=== PATIENT | female | born 1945 | race Two or more races ===

== ENCOUNTER 2020-08-10 21:40 | Inpatient (IN) | payer MEDICARE, MEDICAID ==
[~2020-08-10] VITALS: Ht 160 cm; Wt 88.0 kg
[2020-08-11] MEDS ORDERED: APIX5TAB PO (00:35)
[2020-08-11] MEDS ORDERED: RISP1TAB48 PO (00:36)
[2020-08-11] MEDS ORDERED: MELA3TAB89 PO (00:36)
[2020-08-11] MEDS ORDERED: METO25 PO (00:36)
[2020-08-11] MEDS ORDERED: TRAZ-252 PO (00:36)
[2020-08-11] MEDS ORDERED: DOCU-350 PO (00:36)
[2020-08-11] MEDS ORDERED: OXCA300T57 PO (00:36)
[2020-08-11] MEDS ORDERED: RISPC25 IM (00:36)
[2020-08-11] MEDS ORDERED: BISA10SU11 PR (00:36)
[2020-08-11] MEDS ORDERED: SENN8.8S18 PO (00:36)
[2020-08-11] MEDS ORDERED: ZOLPIDEM TARTRATE 10 MG TABLET PO PRN (00:45)
[2020-08-11] MEDS ORDERED: LORazepam 2 MG TABLET PO PRN (00:45)
[2020-08-11] MEDS ORDERED: OLANZapine 5 MG RAPDIS TABLET PO PRN (00:45)
[2020-08-11 01:06] LABS: COVID AG,FIA SOURCE NASOPHARYNGEAL
[2020-08-11 01:22] LABS: EOSINOPHILS % (AUTO) 1.2 % (1.0-6.0); HEMATOCRIT 37.8 % (36-46); HEMOGLOBIN 12.5 g/dL (12.0-16.0); LYMPHOCYTES # (AUTO) 1.4 K/uL (1.0-4.8); LYMPHOCYTES % (AUTO) 24.4 % (22.0-44.0); MEAN CORPUSCULAR HEMOGLOBIN 29.4 pg (26.0-34.0); MEAN CORPUSCULAR HGB CONC 33.1 G/dL (31.0-37.0); MEAN CORPUSCULAR VOLUME 89 fL (80-100); MONOCYTES # (AUTO) 0.4 K/uL (0.1-1.0); MONOCYTES % (AUTO) 7.7 % (2.0-9.0); NEUTROPHILS # (AUTO) 3.8 K/uL (1.8-7.7); NEUTROPHILS % (AUTO) 65.7 % (40.0-70.0); PLATELET COUNT (AUTO) 164 K/uL (150-450); RED BLOOD CELL COUNT(AUTO) 4.27 MIL/uL (4.00-5.20); RED CELL DISTRIBUTION WIDTH 13.6 % (11.5-14.5)
[2020-08-11 01:30] LABS: ANION GAP 7 mmol/L (8-16); CALCIUM, TOTAL 8.5 mg/dL (8.8-10.5); CARBON DIOXIDE 29 mmol/L (22-29); CHLORIDE 108 mmol/L (98-107); CREATININE 1.14 mg/dL (0.60-1.30); GLOMERULAR FILTR. RATE CALC 46 mL/min (>60); GLUCOSE,RANDOM 172 mg/dL (70-110); SODIUM SERUM 144 mmol/L (136-145); UREA NITROGEN, BLOOD 12 mg/dL (7-18)
[2020-08-11 01:45] LABS: ALANINE AMINOTRANSFERASE 13 U/L (12-78); ALBUMIN 3.2 g/dL (3.4-5.0); ALKALINE PHOSPHATASE 106 U/L (46-116); ASPARTATE AMINOTRANSFERASE 17 U/L (15-37); BILIRUBIN,TOTAL 0.6 mg/dL (0.1-1.0); TOTAL PROTEIN, SERUM 6.3 g/dL (6.4-8.2)
[2020-08-11 09:25] LABS: AMPHET/METH SCREEN,URINE NEGATIVE (NEGATIVE); BARBITURATE SCREEN, URINE NEGATIVE (NEGATIVE); BENZODIAZEPINES SCREEN,URINE NEGATIVE (NEGATIVE); CANNABINOID SCREEN,URINE NEGATIVE (NEGATIVE); COCAINE SCREEN,URINE NEGATIVE (NEGATIVE); METHADONE SCREEN, URINE NEGATIVE (NEGATIVE); OPIATE SCREEN,URINE NEGATIVE (NEGATIVE); PHENCYCLIDINE SCREEN,URINE NEGATIVE (NEGATIVE)
[2020-08-11 16:45] VITALS: BP 156/95
[2020-08-11] MEDS ORDERED: LOPERAMIDE HCL 2 MG CAPSULE PO PRN ×2 (18:15)
[2020-08-11] MEDS ORDERED: TUBERCULIN, PURIFIED PROTEIN DERIVATIVE 5 TU/0.1 ML SYRINGE ID ONE (18:15)
[2020-08-11] MEDS ORDERED: QUEtiapine FUMARATE 25 MG TABLET PO PRN (18:15)
[2020-08-11] MEDS ORDERED: MAGNESIUM HYDROXIDE SUSPENSION 30 ML UDCUP PO PRN (18:15)
[2020-08-11] MEDS ORDERED: MAG HYDROX/AL HYDROX/SIMETH ES 30 ML SUSPENSION UDCUP PO PRN ×2 (18:15)
[2020-08-11] MEDS ORDERED: PROMETHAZINE HCL 25 MG TABLET PO PRN (18:15)
[2020-08-11] MEDS ORDERED: HydrOXYzine PAMOATE 50 MG CAPSULE PO PRN (18:15)
[2020-08-11] MEDS ORDERED: ACETAMINOPHEN 325 MG TABLET PO PRN (18:15)
[2020-08-11] MEDS ORDERED: GuaiFENesin/D-METHORPHAN [SUGAR-FREE] 200-20MG/10 ML SYRUP UDCUP PO PRN (18:15)
[2020-08-11] MEDS ORDERED: SENN-277 PO (18:25)
[2020-08-11] MEDS ORDERED: BISACODYL 10 MG RECTAL RECTAL SUPPOSITORY PR PRN (19:45)
[2020-08-11] MEDS: QUEtiapine FUMARATE 100 MG TABLET PO SCH (21:00)
[2020-08-11] MEDS: DIVALPROEX SODIUM 500 MG ER TABLET PO SCH (21:00)
[2020-08-12] MEDS ORDERED: PNEUMOCOCCAL VACCINE POLYVALENT 0.5 ML VIAL [PPSV23] IM. ONE (04:45)
[2020-08-12 07:52] LABS: CHOL/HDL RATIO 2.4 (3.9-5.7); FREE T4 (FREE THYROXINE) 0.96 ng/dL (0.76-1.46); THYROID STIMULATING HORMONE 1.7 uIU/mL (0.36-3.74)
[2020-08-12 08:10] LABS: HEMOGLOBIN A1C 5.4 % (3.8-5.6)
[2020-08-12 08:23] VITALS: BP 140/85
[2020-08-12] MEDS: MULTIVITAMINS WITH MINERALS, THERAPEUTIC TABLET PO SCH (09:00)
[2020-08-12] MEDS: DOCUSATE SODIUM 250 MG CAPSULE PO SCH (09:00)
[2020-08-12] MEDS: APIXABAN 5 MG TABLET PO SCH ×2 (09:00→16:35)
[2020-08-12] MEDS: FOLIC ACID 1 MG TABLET PO SCH (09:00)
[2020-08-12] MEDS: METOPROLOL TARTRATE 25 MG TABLET PO SCH ×2 (09:00→16:36)
[2020-08-12] MEDS: AmLODIPine BESYLATE 5 MG TABLET PO SCH (09:00)
[2020-08-12] MEDS: THIAMINE 100 MG TABLET PO SCH ×2 (09:00→16:36)
[2020-08-12] MEDS: DIVALPROEX SODIUM 500 MG ER TABLET PO SCH ×2 (09:00→21:00)
[2020-08-12 17:49] VITALS: BP 134/81
[2020-08-12] MEDS: QUEtiapine FUMARATE 100 MG TABLET PO SCH (21:00)
[2020-08-13 08:08] VITALS: BP 146/83
[2020-08-13] MEDS: APIXABAN 5 MG TABLET PO SCH ×2 (09:00→16:27)
[2020-08-13] MEDS: FOLIC ACID 1 MG TABLET PO SCH (09:00)
[2020-08-13] MEDS: DOCUSATE SODIUM 250 MG CAPSULE PO SCH (09:00)
[2020-08-13] MEDS: AmLODIPine BESYLATE 5 MG TABLET PO SCH (09:00)
[2020-08-13] MEDS: DIVALPROEX SODIUM 500 MG ER TABLET PO SCH ×4 (09:00→20:56)
[2020-08-13] MEDS: THIAMINE 100 MG TABLET PO SCH ×2 (09:00→16:27)
[2020-08-13] MEDS: METOPROLOL TARTRATE 25 MG TABLET PO SCH ×2 (09:00→16:27)
[2020-08-13] MEDS: MULTIVITAMINS WITH MINERALS, THERAPEUTIC TABLET PO SCH (09:00)
[2020-08-13] MEDS ORDERED: QUET100T34 PO (15:13)
[2020-08-13] MEDS ORDERED: DIVA-80 PO (15:13)
[2020-08-13] MEDS ORDERED: MELA5TAB40 PO (15:14)
[2020-08-13 16:03] VITALS: BP 129/81
[2020-08-13] MEDS: QUEtiapine FUMARATE 100 MG TABLET PO SCH ×3 (20:28→20:56)
[2020-08-14 01:23] VITALS: BP 124/72
[2020-08-14] MEDS: ZOLPIDEM TARTRATE 5 MG TABLET PO PRN (01:28)
[2020-08-14] MEDS: FOLIC ACID 1 MG TABLET PO SCH (09:00)
[2020-08-14] MEDS: AmLODIPine BESYLATE 5 MG TABLET PO SCH (09:00)
[2020-08-14] MEDS: DIVALPROEX SODIUM 500 MG ER TABLET PO SCH ×2 (09:00→20:37)
[2020-08-14] MEDS: MULTIVITAMINS WITH MINERALS, THERAPEUTIC TABLET PO SCH (09:00)
[2020-08-14] MEDS: METOPROLOL TARTRATE 25 MG TABLET PO SCH ×2 (09:00→17:00)
[2020-08-14] MEDS: THIAMINE 100 MG TABLET PO SCH ×2 (09:00→17:00)
[2020-08-14] MEDS: DOCUSATE SODIUM 250 MG CAPSULE PO SCH (09:00)
[2020-08-14] MEDS: APIXABAN 5 MG TABLET PO SCH ×2 (09:00→17:00)
[2020-08-14 09:15] VITALS: BP 125/63
[2020-08-14] MEDS: QUEtiapine FUMARATE 100 MG TABLET PO SCH (20:37)
[2020-08-14 21:00] VITALS: BP 142/93
[2020-08-15 08:36] VITALS: BP 120/61
[2020-08-15] MEDS: DIVALPROEX SODIUM 500 MG ER TABLET PO SCH ×2 (09:00→20:22)
[2020-08-15] MEDS: DOCUSATE SODIUM 250 MG CAPSULE PO SCH (09:00)
[2020-08-15] MEDS: FOLIC ACID 1 MG TABLET PO SCH (09:17)
[2020-08-15] MEDS: AmLODIPine BESYLATE 5 MG TABLET PO SCH (09:19)
[2020-08-15] MEDS: MULTIVITAMINS WITH MINERALS, THERAPEUTIC TABLET PO SCH (09:20)
[2020-08-15] MEDS: THIAMINE 100 MG TABLET PO SCH ×2 (09:20→16:35)
[2020-08-15] MEDS: METOPROLOL TARTRATE 25 MG TABLET PO SCH ×2 (09:20→16:36)
[2020-08-15] MEDS: APIXABAN 5 MG TABLET PO SCH ×2 (09:30→16:35)
[2020-08-15 16:11] VITALS: BP 127/69
[2020-08-15] MEDS: QUEtiapine FUMARATE 100 MG TABLET PO SCH (20:22)
[2020-08-16 08:07] VITALS: BP 135/69
[2020-08-16] MEDS: MULTIVITAMINS WITH MINERALS, THERAPEUTIC TABLET PO SCH (08:53)
[2020-08-16] MEDS: AmLODIPine BESYLATE 5 MG TABLET PO SCH (08:53)
[2020-08-16] MEDS: DIVALPROEX SODIUM 500 MG ER TABLET PO SCH ×2 (08:54→20:22)
[2020-08-16] MEDS: THIAMINE 100 MG TABLET PO SCH ×2 (08:54→16:18)
[2020-08-16] MEDS: METOPROLOL TARTRATE 25 MG TABLET PO SCH ×2 (08:55→16:18)
[2020-08-16] MEDS: APIXABAN 5 MG TABLET PO SCH ×2 (08:55→16:18)
[2020-08-16] MEDS: FOLIC ACID 1 MG TABLET PO SCH (08:55)
[2020-08-16] MEDS: DOCUSATE SODIUM 250 MG CAPSULE PO SCH (09:00)
[2020-08-16 16:50] VITALS: BP 103/61
[2020-08-16] MEDS: QUEtiapine FUMARATE 100 MG TABLET PO SCH (20:22)
[2020-08-17 08:37] VITALS: BP 128/78
[2020-08-17] MEDS: THIAMINE 100 MG TABLET PO SCH ×2 (09:00→16:29)
[2020-08-17] MEDS: AmLODIPine BESYLATE 5 MG TABLET PO SCH (09:00)
[2020-08-17] MEDS: FOLIC ACID 1 MG TABLET PO SCH (09:00)
[2020-08-17] MEDS: APIXABAN 5 MG TABLET PO SCH ×2 (09:00→16:29)
[2020-08-17] MEDS: MULTIVITAMINS WITH MINERALS, THERAPEUTIC TABLET PO SCH (09:00)
[2020-08-17] MEDS: METOPROLOL TARTRATE 25 MG TABLET PO SCH ×2 (09:00→16:29)
[2020-08-17] MEDS: DOCUSATE SODIUM 250 MG CAPSULE PO SCH (09:00)
[2020-08-17] MEDS: DIVALPROEX SODIUM 500 MG ER TABLET PO SCH ×2 (09:00→20:41)
[2020-08-17 16:07] VITALS: BP 113/52
[2020-08-17] MEDS: QUEtiapine FUMARATE 100 MG TABLET PO SCH (20:42)
[2020-08-18 08:00] VITALS: BP 103/61
[2020-08-18] MEDS: THIAMINE 100 MG TABLET PO SCH ×2 (09:00→17:00)
[2020-08-18] MEDS: DOCUSATE SODIUM 250 MG CAPSULE PO SCH (09:00)
[2020-08-18] MEDS: FOLIC ACID 1 MG TABLET PO SCH (09:00)
[2020-08-18] MEDS: DIVALPROEX SODIUM 500 MG ER TABLET PO SCH ×2 (09:00→21:00)
[2020-08-18] MEDS: AmLODIPine BESYLATE 5 MG TABLET PO SCH (09:00)
[2020-08-18] MEDS: MULTIVITAMINS WITH MINERALS, THERAPEUTIC TABLET PO SCH (09:00)
[2020-08-18] MEDS: APIXABAN 5 MG TABLET PO SCH ×2 (09:00→17:00)
[2020-08-18] MEDS: METOPROLOL TARTRATE 25 MG TABLET PO SCH ×2 (09:00→17:00)
[2020-08-18 16:20] VITALS: BP 140/70
[2020-08-18] MEDS: QUEtiapine FUMARATE 100 MG TABLET PO SCH (21:00)
[2020-08-19 01:00] VITALS: BP 133/92
[2020-08-19 08:23] VITALS: BP 121/75
[2020-08-19] MEDS: MULTIVITAMINS WITH MINERALS, THERAPEUTIC TABLET PO SCH (08:55)
[2020-08-19] MEDS: THIAMINE 100 MG TABLET PO SCH ×2 (08:55→17:00)
[2020-08-19] MEDS: DIVALPROEX SODIUM 500 MG ER TABLET PO SCH ×2 (08:56→20:50)
[2020-08-19] MEDS: FOLIC ACID 1 MG TABLET PO SCH (08:56)
[2020-08-19] MEDS: APIXABAN 5 MG TABLET PO SCH ×2 (08:56→17:00)
[2020-08-19] MEDS: AmLODIPine BESYLATE 5 MG TABLET PO SCH (08:57)
[2020-08-19] MEDS: METOPROLOL TARTRATE 25 MG TABLET PO SCH ×2 (08:58→17:00)
[2020-08-19] MEDS: DOCUSATE SODIUM 250 MG CAPSULE PO SCH ×2 (08:59→09:16)
[2020-08-19 15:06] LABS: COVID AG,FIA SOURCE NASOPHARYNGEAL
[2020-08-19 16:47] VITALS: BP 124/70
[2020-08-19] MEDS: QUEtiapine FUMARATE 100 MG TABLET PO SCH (20:50)
[2020-08-20 08:10] VITALS: BP 117/56
[2020-08-20] MEDS: AmLODIPine BESYLATE 5 MG TABLET PO SCH (09:00)
[2020-08-20] MEDS: METOPROLOL TARTRATE 25 MG TABLET PO SCH ×2 (09:00→14:17)
[2020-08-20] MEDS: DIVALPROEX SODIUM 500 MG ER TABLET PO SCH ×3 (09:00→21:00)
[2020-08-20] MEDS: THIAMINE 100 MG TABLET PO SCH ×3 (09:00→16:40)
[2020-08-20] MEDS: DOCUSATE SODIUM 250 MG CAPSULE PO SCH (09:23)
[2020-08-20] MEDS: MULTIVITAMINS WITH MINERALS, THERAPEUTIC TABLET PO SCH (09:23)
[2020-08-20] MEDS: FOLIC ACID 1 MG TABLET PO SCH (09:24)
[2020-08-20] MEDS: APIXABAN 5 MG TABLET PO SCH ×2 (09:24→14:17)
[2020-08-20 16:00] VITALS: BP 126/68
[2020-08-20] MEDS: QUEtiapine FUMARATE 100 MG TABLET PO SCH (21:00)
[2020-08-21] MEDS: DIVALPROEX SODIUM 500 MG ER TABLET PO SCH ×2 (09:00→21:00)
[2020-08-21] MEDS: DOCUSATE SODIUM 250 MG CAPSULE PO SCH (09:00)
[2020-08-21] MEDS: THIAMINE 100 MG TABLET PO SCH ×2 (09:00→17:00)
[2020-08-21] MEDS: METOPROLOL TARTRATE 25 MG TABLET PO SCH ×2 (09:00→17:00)
[2020-08-21] MEDS: AmLODIPine BESYLATE 5 MG TABLET PO SCH (09:00)
[2020-08-21] MEDS: MULTIVITAMINS WITH MINERALS, THERAPEUTIC TABLET PO SCH (09:00)
[2020-08-21] MEDS: FOLIC ACID 1 MG TABLET PO SCH (09:00)
[2020-08-21] MEDS: APIXABAN 5 MG TABLET PO SCH ×2 (09:00→17:00)
[2020-08-21 09:22] VITALS: BP 147/92
[2020-08-21 16:00] VITALS: BP 127/77
[2020-08-21] MEDS: QUEtiapine FUMARATE 100 MG TABLET PO SCH (21:00)
[2020-08-22 02:23] VITALS: BP 148/76
[2020-08-22 08:11] VITALS: BP 133/101
[2020-08-22] MEDS: APIXABAN 5 MG TABLET PO SCH ×2 (09:00→17:00)
[2020-08-22] MEDS: METOPROLOL TARTRATE 25 MG TABLET PO SCH ×2 (09:00→17:00)
[2020-08-22] MEDS: DOCUSATE SODIUM 250 MG CAPSULE PO SCH (09:00)
[2020-08-22] MEDS: DIVALPROEX SODIUM 500 MG ER TABLET PO SCH ×2 (09:00→20:45)
[2020-08-22] MEDS: MULTIVITAMINS WITH MINERALS, THERAPEUTIC TABLET PO SCH (09:00)
[2020-08-22] MEDS: AmLODIPine BESYLATE 5 MG TABLET PO SCH (09:00)
[2020-08-22 16:46] VITALS: BP 136/72
[2020-08-22] MEDS: QUEtiapine FUMARATE 100 MG TABLET PO SCH (20:45)
[2020-08-23] MEDS: DOCUSATE SODIUM 250 MG CAPSULE PO SCH (08:45)
[2020-08-23] MEDS: DIVALPROEX SODIUM 500 MG ER TABLET PO SCH ×2 (08:46→21:00)
[2020-08-23] MEDS: AmLODIPine BESYLATE 5 MG TABLET PO SCH (08:46)
[2020-08-23] MEDS: METOPROLOL TARTRATE 25 MG TABLET PO SCH ×2 (08:46→16:55)
[2020-08-23] MEDS: MULTIVITAMINS WITH MINERALS, THERAPEUTIC TABLET PO SCH (08:46)
[2020-08-23] MEDS: APIXABAN 5 MG TABLET PO SCH ×2 (08:46→16:55)
[2020-08-23 16:25] VITALS: BP 119/62
[2020-08-23] MEDS: QUEtiapine FUMARATE 100 MG TABLET PO SCH (21:00)
[2020-08-24 02:23] VITALS: BP 159/97
[2020-08-24] MEDS: DIVALPROEX SODIUM 500 MG ER TABLET PO SCH ×2 (09:00→21:00)
[2020-08-24] MEDS: APIXABAN 5 MG TABLET PO SCH ×2 (09:00→16:58)
[2020-08-24] MEDS: MULTIVITAMINS WITH MINERALS, THERAPEUTIC TABLET PO SCH (09:00)
[2020-08-24] MEDS: DOCUSATE SODIUM 250 MG CAPSULE PO SCH (09:00)
[2020-08-24] MEDS: METOPROLOL TARTRATE 25 MG TABLET PO SCH ×2 (09:00→16:58)
[2020-08-24 16:00] VITALS: BP 107/56
[2020-08-24] MEDS: QUEtiapine FUMARATE 100 MG TABLET PO SCH (21:00)
[2020-08-25 04:15] VITALS: BP 102/78
[2020-08-25] MEDS: METOPROLOL TARTRATE 25 MG TABLET PO SCH ×2 (09:00→16:50)
[2020-08-25] MEDS: APIXABAN 5 MG TABLET PO SCH ×2 (09:00→16:50)
[2020-08-25] MEDS: DOCUSATE SODIUM 250 MG CAPSULE PO SCH (09:00)
[2020-08-25] MEDS: MULTIVITAMINS WITH MINERALS, THERAPEUTIC TABLET PO SCH (09:00)
[2020-08-25] MEDS: DIVALPROEX SODIUM 500 MG ER TABLET PO SCH ×2 (09:00→20:37)
[2020-08-25 12:01] VITALS: BP 148/65
[2020-08-25 16:15] VITALS: BP 111/80
[2020-08-25] MEDS: QUEtiapine FUMARATE 100 MG TABLET PO SCH (20:37)
[2020-08-26 08:03] VITALS: BP 142/72
[2020-08-26] MEDS: METOPROLOL TARTRATE 25 MG TABLET PO SCH ×2 (09:00→17:00)
[2020-08-26] MEDS: DIVALPROEX SODIUM 500 MG ER TABLET PO SCH ×2 (09:00→20:10)
[2020-08-26] MEDS: MULTIVITAMINS WITH MINERALS, THERAPEUTIC TABLET PO SCH (09:00)
[2020-08-26] MEDS: DOCUSATE SODIUM 250 MG CAPSULE PO SCH (09:00)
[2020-08-26] MEDS: APIXABAN 5 MG TABLET PO SCH ×2 (09:00→17:00)
[2020-08-26 16:05] VITALS: BP 141/78
[2020-08-26] MEDS: QUEtiapine FUMARATE 100 MG TABLET PO SCH (20:11)
[2020-08-27 01:01] VITALS: BP 152/79
[2020-08-27 08:02] VITALS: BP 119/86
[2020-08-27] MEDS: APIXABAN 5 MG TABLET PO SCH ×2 (09:00→16:47)
[2020-08-27] MEDS: METOPROLOL TARTRATE 25 MG TABLET PO SCH ×2 (09:00→16:47)
[2020-08-27] MEDS: MULTIVITAMINS WITH MINERALS, THERAPEUTIC TABLET PO SCH (09:00)
[2020-08-27] MEDS: DIVALPROEX SODIUM 500 MG ER TABLET PO SCH ×2 (09:00→20:43)
[2020-08-27] MEDS: DOCUSATE SODIUM 250 MG CAPSULE PO SCH (09:00)
[2020-08-27 16:04] VITALS: BP 109/76
[2020-08-27] MEDS: QUEtiapine FUMARATE 100 MG TABLET PO SCH (20:43)
[2020-08-28] MEDS: APIXABAN 5 MG TABLET PO SCH ×2 (09:00→17:00)
[2020-08-28] MEDS: DIVALPROEX SODIUM 500 MG ER TABLET PO SCH ×2 (09:00→21:00)
[2020-08-28] MEDS: DOCUSATE SODIUM 250 MG CAPSULE PO SCH (09:00)
[2020-08-28] MEDS: METOPROLOL TARTRATE 25 MG TABLET PO SCH ×2 (09:00→17:00)
[2020-08-28] MEDS: MULTIVITAMINS WITH MINERALS, THERAPEUTIC TABLET PO SCH (09:00)
[2020-08-28 18:50] VITALS: BP 102/67
[2020-08-28] MEDS: QUEtiapine FUMARATE 100 MG TABLET PO SCH (21:00)
[2020-08-29 01:15] VITALS: BP 108/73
[2020-08-29] MEDS: APIXABAN 5 MG TABLET PO SCH ×2 (09:00→16:51)
[2020-08-29] MEDS: METOPROLOL TARTRATE 25 MG TABLET PO SCH ×2 (09:00→16:51)
[2020-08-29] MEDS: MULTIVITAMINS WITH MINERALS, THERAPEUTIC TABLET PO SCH (09:00)
[2020-08-29] MEDS: DIVALPROEX SODIUM 500 MG ER TABLET PO SCH ×2 (09:00→21:00)
[2020-08-29] MEDS: DOCUSATE SODIUM 250 MG CAPSULE PO SCH (09:00)
[2020-08-29 09:13] VITALS: BP 148/79
[2020-08-29 16:15] VITALS: BP 107/55
[2020-08-29] MEDS: QUEtiapine FUMARATE 100 MG TABLET PO SCH (21:00)
[2020-08-30] MEDS: APIXABAN 5 MG TABLET PO SCH ×2 (09:00→17:00)
[2020-08-30] MEDS: METOPROLOL TARTRATE 25 MG TABLET PO SCH ×2 (09:00→17:00)
[2020-08-30] MEDS: MULTIVITAMINS WITH MINERALS, THERAPEUTIC TABLET PO SCH (09:00)
[2020-08-30] MEDS: DIVALPROEX SODIUM 500 MG ER TABLET PO SCH ×2 (09:00→21:00)
[2020-08-30] MEDS: DOCUSATE SODIUM 250 MG CAPSULE PO SCH (09:00)
[2020-08-30 09:10] VITALS: BP 131/59
[2020-08-30 16:03] VITALS: BP 111/65
[2020-08-30] MEDS: QUEtiapine FUMARATE 100 MG TABLET PO SCH (21:00)
[2020-08-31 08:21] VITALS: BP 137/91
[2020-08-31] MEDS: DOCUSATE SODIUM 250 MG CAPSULE PO SCH (09:00)
[2020-08-31] MEDS: APIXABAN 5 MG TABLET PO SCH ×2 (09:00→16:52)
[2020-08-31] MEDS: METOPROLOL TARTRATE 25 MG TABLET PO SCH ×2 (09:00→16:52)
[2020-08-31] MEDS: MULTIVITAMINS WITH MINERALS, THERAPEUTIC TABLET PO SCH (09:00)
[2020-08-31] MEDS: DIVALPROEX SODIUM 500 MG ER TABLET PO SCH ×2 (09:00→21:10)
[2020-08-31 16:40] VITALS: BP 148/79
[2020-08-31] MEDS: QUEtiapine FUMARATE 100 MG TABLET PO SCH (21:10)
[2020-09-01 08:27] VITALS: BP 146/72
[2020-09-01] MEDS: METOPROLOL TARTRATE 25 MG TABLET PO SCH ×2 (09:00→16:13)
[2020-09-01] MEDS: APIXABAN 5 MG TABLET PO SCH ×2 (09:00→16:13)
[2020-09-01] MEDS: MULTIVITAMINS WITH MINERALS, THERAPEUTIC TABLET PO SCH (09:00)
[2020-09-01] MEDS: DOCUSATE SODIUM 250 MG CAPSULE PO SCH (09:00)
[2020-09-01] MEDS: DIVALPROEX SODIUM 500 MG ER TABLET PO SCH ×2 (09:24→20:10)
[2020-09-01 16:00] VITALS: BP 143/73
[2020-09-01] MEDS ORDERED: DOCUSATE SODIUM 250 MG CAPSULE PO PRN (18:15)
[2020-09-01] MEDS: QUEtiapine FUMARATE 100 MG TABLET PO SCH (20:10)
[2020-09-02 08:33] VITALS: BP 98/51
[2020-09-02] MEDS: DIVALPROEX SODIUM 500 MG ER TABLET PO SCH (09:00)
[2020-09-02] MEDS: METOPROLOL TARTRATE 25 MG TABLET PO SCH (09:00)
[2020-09-02] MEDS: MULTIVITAMINS WITH MINERALS, THERAPEUTIC TABLET PO SCH (09:00)
[2020-09-02] MEDS: APIXABAN 5 MG TABLET PO SCH ×2 (09:00→16:47)
[2020-09-02] MEDS: HALOPERIDOL LACTATE 5 MG/ML VIAL IM PRN (11:25)
[2020-09-02 16:13] VITALS: BP 128/74
[2020-09-02] MEDS: QUEtiapine FUMARATE 100 MG TABLET PO SCH (20:21)
[2020-09-03 08:50] VITALS: BP 146/84
[2020-09-03] MEDS: MULTIVITAMINS WITH MINERALS, THERAPEUTIC TABLET PO SCH ×2 (09:00→11:09)
[2020-09-03] MEDS: APIXABAN 5 MG TABLET PO SCH ×3 (09:00→16:53)
[2020-09-03 16:31] VITALS: BP 148/78
[2020-09-03 19:06] LABS: COVID AG,FIA SOURCE NASAL SWAB
[2020-09-03] MEDS: QUEtiapine FUMARATE 100 MG TABLET PO SCH (20:23)
[2020-09-04 08:31] VITALS: BP 112/50
[2020-09-04] MEDS: METOPROLOL SUCCINATE 25 MG ER TABLET PO SCH (09:00)
[2020-09-04] MEDS: APIXABAN 5 MG TABLET PO SCH ×2 (09:00→17:41)
[2020-09-04] MEDS: MULTIVITAMINS WITH MINERALS, THERAPEUTIC TABLET PO SCH (09:00)
[2020-09-04 16:00] VITALS: BP 135/73
[2020-09-04] MEDS: QUEtiapine FUMARATE 100 MG TABLET PO SCH (20:08)
[2020-09-05 08:38] VITALS: BP 142/66
[2020-09-05] MEDS: MULTIVITAMINS WITH MINERALS, THERAPEUTIC TABLET PO SCH (09:00)
[2020-09-05] MEDS: METOPROLOL SUCCINATE 25 MG ER TABLET PO SCH (09:00)
[2020-09-05] MEDS: APIXABAN 5 MG TABLET PO SCH ×2 (09:00→16:34)
[2020-09-05 16:48] VITALS: BP 123/82
[2020-09-05] MEDS: QUEtiapine FUMARATE 100 MG TABLET PO SCH (20:07)
[2020-09-06 03:35] VITALS: BP 126/72
[2020-09-06] MEDS: APIXABAN 5 MG TABLET PO SCH ×2 (08:07→16:08)
[2020-09-06] MEDS: MULTIVITAMINS WITH MINERALS, THERAPEUTIC TABLET PO SCH (08:08)
[2020-09-06] MEDS: METOPROLOL SUCCINATE 25 MG ER TABLET PO SCH (08:08)
[2020-09-06 08:26] VITALS: BP 108/60
[2020-09-06 16:40] VITALS: BP 106/79
[2020-09-06] MEDS: QUEtiapine FUMARATE 100 MG TABLET PO SCH (20:14)
[2020-09-07 08:25] VITALS: BP 124/65
[2020-09-07] MEDS: MULTIVITAMINS WITH MINERALS, THERAPEUTIC TABLET PO SCH (09:24)
[2020-09-07] MEDS: APIXABAN 5 MG TABLET PO SCH ×2 (09:24→16:20)
[2020-09-07] MEDS: METOPROLOL SUCCINATE 25 MG ER TABLET PO SCH (09:24)
[2020-09-07] MEDS ORDERED: TUBERCULIN, PURIFIED PROTEIN DERIVATIVE 5 TU/0.1 ML SYRINGE ID ONE (09:45)
[2020-09-07 16:21] VITALS: BP 127/77
[2020-09-07] MEDS: QUEtiapine FUMARATE 100 MG TABLET PO SCH (20:16)
[2020-09-08 08:30] VITALS: BP 135/85
[2020-09-08] MEDS: METOPROLOL SUCCINATE 25 MG ER TABLET PO SCH (09:20)
[2020-09-08] MEDS: APIXABAN 5 MG TABLET PO SCH ×2 (09:20→16:25)
[2020-09-08] MEDS: MULTIVITAMINS WITH MINERALS, THERAPEUTIC TABLET PO SCH (09:20)
[2020-09-08 16:06] VITALS: BP 127/79
[2020-09-08] MEDS: QUEtiapine FUMARATE 100 MG TABLET PO SCH (20:18)
[2020-09-09] MEDS: METOPROLOL SUCCINATE 25 MG ER TABLET PO SCH (08:12)
[2020-09-09] MEDS: MULTIVITAMINS WITH MINERALS, THERAPEUTIC TABLET PO SCH (08:12)
[2020-09-09] MEDS: APIXABAN 5 MG TABLET PO SCH ×2 (08:12→16:24)
[2020-09-09 08:19] VITALS: BP 107/52
[2020-09-09 10:38] LABS: COVID AG,FIA SOURCE NASOPHARYNGEAL
[2020-09-09 16:06] VITALS: BP 120/79
[2020-09-09] MEDS: QUEtiapine FUMARATE 100 MG TABLET PO SCH (20:00)
[2020-09-10] MEDS: MULTIVITAMINS WITH MINERALS, THERAPEUTIC TABLET PO SCH (08:35)
[2020-09-10] MEDS: APIXABAN 5 MG TABLET PO SCH ×2 (08:35→17:02)
[2020-09-10] MEDS: METOPROLOL SUCCINATE 25 MG ER TABLET PO SCH (08:36)
[2020-09-10 08:46] VITALS: BP 127/74
[2020-09-10 17:30] VITALS: BP 121/63
[2020-09-10] MEDS: QUEtiapine FUMARATE 100 MG TABLET PO SCH (20:02)
[2020-09-11 09:11] VITALS: BP 117/71
[2020-09-11] MEDS: METOPROLOL SUCCINATE 25 MG ER TABLET PO SCH (10:24)
[2020-09-11] MEDS: APIXABAN 5 MG TABLET PO SCH ×2 (10:24→16:08)
[2020-09-11] MEDS: MULTIVITAMINS WITH MINERALS, THERAPEUTIC TABLET PO SCH (10:24)
[2020-09-11 16:28] VITALS: BP 120/86
[2020-09-11] MEDS: QUEtiapine FUMARATE 100 MG TABLET PO SCH (20:17)
[2020-09-12 08:05] VITALS: BP 135/67
[2020-09-12] MEDS: APIXABAN 5 MG TABLET PO SCH ×2 (08:09→16:38)
[2020-09-12] MEDS: MULTIVITAMINS WITH MINERALS, THERAPEUTIC TABLET PO SCH (08:09)
[2020-09-12] MEDS: METOPROLOL SUCCINATE 25 MG ER TABLET PO SCH (08:09)
[2020-09-12 16:00] VITALS: BP 124/71
[2020-09-12] MEDS: QUEtiapine FUMARATE 100 MG TABLET PO SCH (20:06)
[2020-09-13] MEDS: MULTIVITAMINS WITH MINERALS, THERAPEUTIC TABLET PO SCH (08:03)
[2020-09-13] MEDS: APIXABAN 5 MG TABLET PO SCH ×2 (08:03→16:10)
[2020-09-13] MEDS: METOPROLOL SUCCINATE 25 MG ER TABLET PO SCH (08:03)
[2020-09-13 08:17] VITALS: BP 126/60
[2020-09-13 16:04] VITALS: BP 127/67
[2020-09-13 20:00] VITALS: BP 121/66
[2020-09-13] MEDS: QUEtiapine FUMARATE 100 MG TABLET PO SCH (20:00)
[2020-09-14] MEDS: APIXABAN 5 MG TABLET PO SCH ×2 (08:13→16:03)
[2020-09-14] MEDS: MULTIVITAMINS WITH MINERALS, THERAPEUTIC TABLET PO SCH (08:13)
[2020-09-14] MEDS: METOPROLOL SUCCINATE 25 MG ER TABLET PO SCH (08:14)
[2020-09-14 08:46] VITALS: BP 158/95
[2020-09-14 16:14] VITALS: BP 121/66
[2020-09-14] MEDS: QUEtiapine FUMARATE 100 MG TABLET PO SCH (21:00)
[2020-09-15 08:04] VITALS: BP 147/96
[2020-09-15] MEDS: MULTIVITAMINS WITH MINERALS, THERAPEUTIC TABLET PO SCH (09:17)
[2020-09-15] MEDS: APIXABAN 5 MG TABLET PO SCH ×2 (09:18→16:06)
[2020-09-15] MEDS: METOPROLOL SUCCINATE 25 MG ER TABLET PO SCH (09:18)
[2020-09-15 16:53] VITALS: BP 105/70
[2020-09-15] MEDS: QUEtiapine FUMARATE 100 MG TABLET PO SCH (20:04)
[2020-09-16] MEDS: MULTIVITAMINS WITH MINERALS, THERAPEUTIC TABLET PO SCH (08:28)
[2020-09-16] MEDS: APIXABAN 5 MG TABLET PO SCH ×2 (08:29→16:18)
[2020-09-16] MEDS: METOPROLOL SUCCINATE 25 MG ER TABLET PO SCH (08:29)
[2020-09-16 09:46] VITALS: BP 116/55
[2020-09-16 16:25] LABS: COVID AG,FIA SOURCE NASOPHARYNGEAL
[2020-09-16 16:32] VITALS: BP 105/66
[2020-09-16] MEDS: QUEtiapine FUMARATE 100 MG TABLET PO SCH (20:04)
[2020-09-17 08:38] VITALS: BP 131/71
[2020-09-17] MEDS: METOPROLOL SUCCINATE 25 MG ER TABLET PO SCH (09:08)
[2020-09-17] MEDS: MULTIVITAMINS WITH MINERALS, THERAPEUTIC TABLET PO SCH (09:08)
[2020-09-17] MEDS: APIXABAN 5 MG TABLET PO SCH ×2 (09:09→17:00)
[2020-09-17 16:39] VITALS: BP 112/68
[2020-09-17] MEDS: QUEtiapine FUMARATE 100 MG TABLET PO SCH (20:20)
[2020-09-18] MEDS: APIXABAN 5 MG TABLET PO SCH ×2 (08:43→16:07)
[2020-09-18] MEDS: METOPROLOL SUCCINATE 25 MG ER TABLET PO SCH (08:43)
[2020-09-18] MEDS: MULTIVITAMINS WITH MINERALS, THERAPEUTIC TABLET PO SCH (08:44)
[2020-09-18 09:00] VITALS: BP 98/58
[2020-09-18 16:11] VITALS: BP 115/70
[2020-09-18] MEDS: QUEtiapine FUMARATE 100 MG TABLET PO SCH (21:09)
[2020-09-19 08:20] VITALS: BP 156/60
[2020-09-19] MEDS: MULTIVITAMINS WITH MINERALS, THERAPEUTIC TABLET PO SCH (09:11)
[2020-09-19] MEDS: APIXABAN 5 MG TABLET PO SCH ×2 (09:11→17:00)
[2020-09-19] MEDS: METOPROLOL SUCCINATE 25 MG ER TABLET PO SCH (09:14)
[2020-09-19 16:24] VITALS: BP 129/76
[2020-09-19] MEDS: QUEtiapine FUMARATE 100 MG TABLET PO SCH (21:33)
[2020-09-20 09:13] VITALS: BP 128/73
[2020-09-20] MEDS: MULTIVITAMINS WITH MINERALS, THERAPEUTIC TABLET PO SCH (09:27)
[2020-09-20] MEDS: METOPROLOL SUCCINATE 25 MG ER TABLET PO SCH (09:27)
[2020-09-20 16:00] VITALS: BP 137/97
[2020-09-20] MEDS: APIXABAN 5 MG TABLET PO SCH (16:05)
[2020-09-20] MEDS: QUEtiapine FUMARATE 100 MG TABLET PO SCH (20:46)
[2020-09-21 08:32] VITALS: BP 122/78
[2020-09-21] MEDS: APIXABAN 5 MG TABLET PO SCH ×2 (09:03→16:00)
[2020-09-21] MEDS: MULTIVITAMINS WITH MINERALS, THERAPEUTIC TABLET PO SCH (09:03)
[2020-09-21] MEDS: METOPROLOL SUCCINATE 25 MG ER TABLET PO SCH (09:03)
[2020-09-21 16:15] VITALS: BP 127/74
[2020-09-21] MEDS: QUEtiapine FUMARATE 100 MG TABLET PO SCH (20:04)
[2020-09-22] MEDS: MULTIVITAMINS WITH MINERALS, THERAPEUTIC TABLET PO SCH (08:34)
[2020-09-22] MEDS: METOPROLOL SUCCINATE 25 MG ER TABLET PO SCH (08:35)
[2020-09-22] MEDS: APIXABAN 5 MG TABLET PO SCH ×2 (08:35→16:14)
[2020-09-22 16:00] VITALS: BP 125/67
[2020-09-22 16:43] VITALS: BP 125/67
[2020-09-22] MEDS: QUEtiapine FUMARATE 100 MG TABLET PO SCH (20:07)
[2020-09-23] MEDS: APIXABAN 5 MG TABLET PO SCH ×2 (08:31→16:09)
[2020-09-23] MEDS: MULTIVITAMINS WITH MINERALS, THERAPEUTIC TABLET PO SCH (08:31)
[2020-09-23] MEDS: METOPROLOL SUCCINATE 25 MG ER TABLET PO SCH (08:31)
[2020-09-23 09:09] VITALS: BP 115/60
[2020-09-23 15:17] LABS: COVID AG,FIA SOURCE NASOPHARYNGEAL
[2020-09-23 16:02] VITALS: BP 146/82
[2020-09-23] MEDS: QUEtiapine FUMARATE 100 MG TABLET PO SCH (20:26)
[2020-09-24 05:18] VITALS: BP 98/128
[2020-09-24 09:01] VITALS: BP 125/56
[2020-09-24] MEDS: APIXABAN 5 MG TABLET PO SCH ×2 (09:29→16:10)
[2020-09-24] MEDS: METOPROLOL SUCCINATE 25 MG ER TABLET PO SCH (09:29)
[2020-09-24] MEDS: MULTIVITAMINS WITH MINERALS, THERAPEUTIC TABLET PO SCH (09:29)
[2020-09-24] MEDS ORDERED: BISMUTH SUBSALICYLATE 262 MG CHEWABLE TABLET CHEW PRN (10:30)
[2020-09-24 16:00] VITALS: BP 122/72
[2020-09-24 16:07] VITALS: BP 122/72
[2020-09-24] MEDS: QUEtiapine FUMARATE 100 MG TABLET PO SCH (20:01)
[2020-09-25 08:43] VITALS: BP 106/54
[2020-09-25] MEDS: METOPROLOL SUCCINATE 25 MG ER TABLET PO SCH (08:43)
[2020-09-25] MEDS: APIXABAN 5 MG TABLET PO SCH ×2 (08:43→16:09)
[2020-09-25] MEDS: MULTIVITAMINS WITH MINERALS, THERAPEUTIC TABLET PO SCH (08:43)
[2020-09-25 16:28] VITALS: BP 119/59
[2020-09-25] MEDS: QUEtiapine FUMARATE 100 MG TABLET PO SCH (20:02)
[2020-09-26 08:46] VITALS: BP 125/59
[2020-09-26] MEDS: METOPROLOL SUCCINATE 25 MG ER TABLET PO SCH (09:46)
[2020-09-26] MEDS: APIXABAN 5 MG TABLET PO SCH ×2 (09:46→16:22)
[2020-09-26] MEDS: MULTIVITAMINS WITH MINERALS, THERAPEUTIC TABLET PO SCH (09:46)
[2020-09-26 16:40] VITALS: BP 121/63
[2020-09-26] MEDS: QUEtiapine FUMARATE 100 MG TABLET PO SCH (20:01)
[2020-09-27] MEDS: METOPROLOL SUCCINATE 25 MG ER TABLET PO SCH (08:24)
[2020-09-27] MEDS: MULTIVITAMINS WITH MINERALS, THERAPEUTIC TABLET PO SCH (08:24)
[2020-09-27] MEDS: APIXABAN 5 MG TABLET PO SCH ×2 (08:24→16:09)
[2020-09-27 08:34] VITALS: BP 116/66
[2020-09-27 16:09] VITALS: BP 138/86
[2020-09-27] MEDS: QUEtiapine FUMARATE 100 MG TABLET PO SCH (20:22)
[2020-09-28 08:47] VITALS: BP 116/58
[2020-09-28] MEDS: METOPROLOL SUCCINATE 25 MG ER TABLET PO SCH (08:51)
[2020-09-28] MEDS: MULTIVITAMINS WITH MINERALS, THERAPEUTIC TABLET PO SCH (08:51)
[2020-09-28] MEDS: APIXABAN 5 MG TABLET PO SCH ×2 (08:51→16:12)
[2020-09-28 16:40] VITALS: BP 134/79
[2020-09-28] MEDS: QUEtiapine FUMARATE 100 MG TABLET PO SCH (20:27)
[2020-09-29 05:51] VITALS: BP 122/66
[2020-09-29] MEDS: APIXABAN 5 MG TABLET PO SCH ×2 (11:42→16:31)
[2020-09-29] MEDS: MULTIVITAMINS WITH MINERALS, THERAPEUTIC TABLET PO SCH (11:42)
[2020-09-29] MEDS: METOPROLOL SUCCINATE 25 MG ER TABLET PO SCH (11:43)
[2020-09-29] MEDS: QUEtiapine FUMARATE 100 MG TABLET PO SCH (20:29)
[2020-09-30] MEDS: METOPROLOL SUCCINATE 25 MG ER TABLET PO SCH (08:44)
[2020-09-30] MEDS: MULTIVITAMINS WITH MINERALS, THERAPEUTIC TABLET PO SCH (08:44)
[2020-09-30] MEDS: APIXABAN 5 MG TABLET PO SCH ×2 (08:44→16:07)
[2020-09-30 09:47] VITALS: BP 97/56
[2020-09-30 14:41] LABS: COVID AG,FIA SOURCE NASOPHARYNGEAL
[2020-09-30 16:11] VITALS: BP 138/71
[2020-09-30] MEDS: QUEtiapine FUMARATE 100 MG TABLET PO SCH (21:37)
[2020-10-01] MEDS: METOPROLOL SUCCINATE 25 MG ER TABLET PO SCH (09:00)
[2020-10-01 09:11] VITALS: BP 98/55
[2020-10-01] MEDS: MULTIVITAMINS WITH MINERALS, THERAPEUTIC TABLET PO SCH (09:47)
[2020-10-01] MEDS: APIXABAN 5 MG TABLET PO SCH ×2 (09:47→16:47)
[2020-10-01 16:25] VITALS: BP 109/70
[2020-10-01] MEDS: QUEtiapine FUMARATE 100 MG TABLET PO SCH (20:34)
[2020-10-02] MEDS: METOPROLOL SUCCINATE 25 MG ER TABLET PO SCH (10:32)
[2020-10-02] MEDS: APIXABAN 5 MG TABLET PO SCH ×2 (10:32→16:21)
[2020-10-02] MEDS: MULTIVITAMINS WITH MINERALS, THERAPEUTIC TABLET PO SCH (10:32)
[2020-10-02 12:01] VITALS: BP 140/56
[2020-10-02 16:39] VITALS: BP 132/66
[2020-10-02] MEDS: QUEtiapine FUMARATE 100 MG TABLET PO SCH (20:10)
[2020-10-03 05:29] VITALS: BP 120/72
[2020-10-03 08:00] VITALS: BP 104/59
[2020-10-03] MEDS: METOPROLOL SUCCINATE 25 MG ER TABLET PO SCH (09:44)
[2020-10-03] MEDS: APIXABAN 5 MG TABLET PO SCH ×2 (09:44→16:20)
[2020-10-03] MEDS: MULTIVITAMINS WITH MINERALS, THERAPEUTIC TABLET PO SCH (09:44)
[2020-10-03 16:43] VITALS: BP 137/83
[2020-10-03] MEDS: QUEtiapine FUMARATE 100 MG TABLET PO SCH (20:43)
[2020-10-04 08:00] VITALS: BP 115/65
[2020-10-04] MEDS: APIXABAN 5 MG TABLET PO SCH ×2 (09:14→16:19)
[2020-10-04] MEDS: MULTIVITAMINS WITH MINERALS, THERAPEUTIC TABLET PO SCH (09:14)
[2020-10-04] MEDS: METOPROLOL SUCCINATE 25 MG ER TABLET PO SCH (09:14)
[2020-10-04 16:11] VITALS: BP 118/71
[2020-10-04] MEDS: QUEtiapine FUMARATE 100 MG TABLET PO SCH (20:52)
[2020-10-05] MEDS: MULTIVITAMINS WITH MINERALS, THERAPEUTIC TABLET PO SCH (08:38)
[2020-10-05] MEDS: APIXABAN 5 MG TABLET PO SCH ×2 (08:38→16:15)
[2020-10-05] MEDS: METOPROLOL SUCCINATE 25 MG ER TABLET PO SCH ×2 (08:38→08:45)
[2020-10-05 10:40] VITALS: BP 97/61
[2020-10-05 16:22] VITALS: BP 102/60
[2020-10-05] MEDS: QUEtiapine FUMARATE 100 MG TABLET PO SCH (20:34)
[2020-10-06] MEDS: METOPROLOL SUCCINATE 25 MG ER TABLET PO SCH (08:17)
[2020-10-06] MEDS: MULTIVITAMINS WITH MINERALS, THERAPEUTIC TABLET PO SCH (08:17)
[2020-10-06] MEDS: APIXABAN 5 MG TABLET PO SCH ×2 (08:18→16:19)
[2020-10-06 09:37] VITALS: BP 136/82
[2020-10-06 16:00] VITALS: BP 120/60
[2020-10-06] MEDS: QUEtiapine FUMARATE 100 MG TABLET PO SCH (20:32)
[2020-10-07 00:40] VITALS: BP 118/62
[2020-10-07 09:27] VITALS: BP 148/88
[2020-10-07] MEDS: APIXABAN 5 MG TABLET PO SCH ×2 (09:57→16:38)
[2020-10-07] MEDS: MULTIVITAMINS WITH MINERALS, THERAPEUTIC TABLET PO SCH (09:58)
[2020-10-07] MEDS: METOPROLOL SUCCINATE 25 MG ER TABLET PO SCH (09:59)
[2020-10-07 16:00] VITALS: BP 132/77
[2020-10-07] MEDS: QUEtiapine FUMARATE 100 MG TABLET PO SCH (20:06)
[2020-10-08] MEDS: METOPROLOL SUCCINATE 25 MG ER TABLET PO SCH (08:54)
[2020-10-08] MEDS: MULTIVITAMINS WITH MINERALS, THERAPEUTIC TABLET PO SCH (08:54)
[2020-10-08] MEDS: APIXABAN 5 MG TABLET PO SCH ×2 (08:54→16:16)
[2020-10-08 16:01] VITALS: BP 132/74
[2020-10-08] MEDS: QUEtiapine FUMARATE 100 MG TABLET PO SCH (20:43)
[2020-10-09 09:09] VITALS: BP 113/68
[2020-10-09] MEDS: MULTIVITAMINS WITH MINERALS, THERAPEUTIC TABLET PO SCH (09:37)
[2020-10-09] MEDS: METOPROLOL SUCCINATE 25 MG ER TABLET PO SCH (09:37)
[2020-10-09] MEDS: APIXABAN 5 MG TABLET PO SCH ×2 (09:37→16:58)
[2020-10-09 16:18] VITALS: BP 107/65
[2020-10-09] MEDS: QUEtiapine FUMARATE 100 MG TABLET PO SCH (20:42)
[2020-10-10 08:04] VITALS: BP 142/83
[2020-10-10] MEDS: MULTIVITAMINS WITH MINERALS, THERAPEUTIC TABLET PO SCH (09:49)
[2020-10-10] MEDS: METOPROLOL SUCCINATE 25 MG ER TABLET PO SCH (09:49)
[2020-10-10] MEDS: APIXABAN 5 MG TABLET PO SCH ×2 (09:49→16:01)
[2020-10-10 16:24] VITALS: BP 124/73
[2020-10-10] MEDS: QUEtiapine FUMARATE 100 MG TABLET PO SCH (21:09)
[2020-10-11 08:04] VITALS: BP 129/82
[2020-10-11] MEDS: MULTIVITAMINS WITH MINERALS, THERAPEUTIC TABLET PO SCH (08:29)
[2020-10-11] MEDS: METOPROLOL SUCCINATE 25 MG ER TABLET PO SCH (08:30)
[2020-10-11] MEDS: APIXABAN 5 MG TABLET PO SCH ×2 (08:30→16:00)
[2020-10-11 16:00] VITALS: BP 105/61
[2020-10-11] MEDS: QUEtiapine FUMARATE 100 MG TABLET PO SCH (20:34)
[2020-10-12] MEDS: METOPROLOL SUCCINATE 25 MG ER TABLET PO SCH (09:00)
[2020-10-12] MEDS: APIXABAN 5 MG TABLET PO SCH ×2 (09:00→16:37)
[2020-10-12] MEDS: MULTIVITAMINS WITH MINERALS, THERAPEUTIC TABLET PO SCH (09:00)
[2020-10-12 09:36] VITALS: BP 122/65
[2020-10-12 16:57] VITALS: BP 131/94
[2020-10-12] MEDS: QUEtiapine FUMARATE 100 MG TABLET PO SCH (20:33)
[2020-10-13] MEDS: METOPROLOL SUCCINATE 25 MG ER TABLET PO SCH (09:00)
[2020-10-13] MEDS: APIXABAN 5 MG TABLET PO SCH ×2 (09:00→16:32)
[2020-10-13] MEDS: MULTIVITAMINS WITH MINERALS, THERAPEUTIC TABLET PO SCH (09:00)
[2020-10-13 16:48] VITALS: BP 138/70
[2020-10-13] MEDS: QUEtiapine FUMARATE 100 MG TABLET PO SCH (20:42)
[2020-10-14 08:00] VITALS: BP 142/78
[2020-10-14] MEDS: METOPROLOL SUCCINATE 25 MG ER TABLET PO SCH (08:20)
[2020-10-14] MEDS: APIXABAN 5 MG TABLET PO SCH ×2 (08:21→16:16)
[2020-10-14] MEDS: MULTIVITAMINS WITH MINERALS, THERAPEUTIC TABLET PO SCH (08:21)
[2020-10-14 16:00] VITALS: BP 128/52
[2020-10-14] MEDS: QUEtiapine FUMARATE 100 MG TABLET PO SCH (21:00)
[2020-10-14] MEDS: HALOPERIDOL LACTATE 5 MG/ML VIAL IM PRN (21:16)
[2020-10-15 04:22] VITALS: BP 145/92
[2020-10-15 08:46] VITALS: BP 155/82
[2020-10-15] MEDS: MULTIVITAMINS WITH MINERALS, THERAPEUTIC TABLET PO SCH (09:00)
[2020-10-15] MEDS: APIXABAN 5 MG TABLET PO SCH ×2 (09:00→16:23)
[2020-10-15] MEDS: METOPROLOL SUCCINATE 25 MG ER TABLET PO SCH (09:00)
[2020-10-15 14:00] LABS: COVID AG,FIA SOURCE NASAL SWAB
[2020-10-15 16:00] VITALS: BP 147/94
[2020-10-15] MEDS: QUEtiapine FUMARATE 100 MG TABLET PO SCH (20:41)
[2020-10-16 08:00] VITALS: BP 109/76
[2020-10-16] MEDS: METOPROLOL SUCCINATE 25 MG ER TABLET PO SCH (09:00)
[2020-10-16] MEDS: APIXABAN 5 MG TABLET PO SCH ×2 (09:00→16:20)
[2020-10-16] MEDS: MULTIVITAMINS WITH MINERALS, THERAPEUTIC TABLET PO SCH (09:00)
[2020-10-16 16:10] VITALS: BP 140/71
[2020-10-16] MEDS: QUEtiapine FUMARATE 100 MG TABLET PO SCH (20:59)
[2020-10-17 09:03] VITALS: BP 119/67
[2020-10-17] MEDS: APIXABAN 5 MG TABLET PO SCH ×2 (10:00→17:07)
[2020-10-17] MEDS: METOPROLOL SUCCINATE 25 MG ER TABLET PO SCH (10:00)
[2020-10-17] MEDS: MULTIVITAMINS WITH MINERALS, THERAPEUTIC TABLET PO SCH (10:01)
[2020-10-17 16:20] VITALS: BP 108/64
[2020-10-17] MEDS: QUEtiapine FUMARATE 100 MG TABLET PO SCH (21:06)
[2020-10-18 08:08] VITALS: BP 118/67
[2020-10-18] MEDS: APIXABAN 5 MG TABLET PO SCH ×2 (11:37→16:56)
[2020-10-18] MEDS: METOPROLOL SUCCINATE 25 MG ER TABLET PO SCH (11:37)
[2020-10-18] MEDS: MULTIVITAMINS WITH MINERALS, THERAPEUTIC TABLET PO SCH (11:37)
[2020-10-18 16:14] VITALS: BP 117/69
[2020-10-18] MEDS: QUEtiapine FUMARATE 100 MG TABLET PO SCH (21:05)
[2020-10-19 06:34] LABS: BASOPHILS % (AUTO) 1.1 % (0.0-2.0); HEMATOCRIT 36.2 % (36-46); HEMOGLOBIN 12.2 g/dL (12.0-16.0); LYMPHOCYTES # (AUTO) 1.7 K/uL (1.0-4.8); LYMPHOCYTES % (AUTO) 30.5 % (22.0-44.0); MEAN CORPUSCULAR HEMOGLOBIN 30.4 pg (26.0-34.0); MEAN CORPUSCULAR HGB CONC 33.9 G/dL (31.0-37.0); MEAN CORPUSCULAR VOLUME 90 fL (80-100); MONOCYTES # (AUTO) 0.5 K/uL (0.1-1.0); MONOCYTES % (AUTO) 9.3 % (2.0-9.0); NEUTROPHILS # (AUTO) 3.1 K/uL (1.8-7.7); NEUTROPHILS % (AUTO) 57.1 % (40.0-70.0); PLATELET COUNT (AUTO) 166 K/uL (150-450); RED BLOOD CELL COUNT(AUTO) 4.02 MIL/uL (4.00-5.20); RED CELL DISTRIBUTION WIDTH 14.5 % (11.5-14.5)
[2020-10-19 07:09] LABS: ALANINE AMINOTRANSFERASE 20 U/L (12-78); ALBUMIN 2.7 g/dL (3.4-5.0); ALKALINE PHOSPHATASE 101 U/L (46-116); ANION GAP 8 mmol/L (8-16); ASPARTATE AMINOTRANSFERASE 34 U/L (15-37); BILIRUBIN,TOTAL 0.5 mg/dL (0.1-1.0); CALCIUM, TOTAL 8.3 mg/dL (8.8-10.5); CARBON DIOXIDE 26 mmol/L (22-29); CHLORIDE 108 mmol/L (98-107); CREATININE 0.65 mg/dL (0.60-1.30); GLOMERULAR FILTR. RATE CALC > 60 mL/min (>60); GLUCOSE,RANDOM 86 mg/dL (70-110); POTASSIUM 4.7 mmol/L (3.5-5.1); SODIUM SERUM 142 mmol/L (136-145); UREA NITROGEN, BLOOD 20 mg/dL (7-18)
[2020-10-19] MEDS: APIXABAN 5 MG TABLET PO SCH ×2 (08:51→16:49)
[2020-10-19] MEDS: METOPROLOL SUCCINATE 25 MG ER TABLET PO SCH (08:51)
[2020-10-19] MEDS: MULTIVITAMINS WITH MINERALS, THERAPEUTIC TABLET PO SCH (08:51)
[2020-10-19 08:54] VITALS: BP 137/67
[2020-10-19 10:01] LABS: CREATINE KINASE, TOTAL ONLY 64 U/L (26-192)
[2020-10-19 17:11] VITALS: BP 126/70
[2020-10-20 08:11] VITALS: BP 133/75
[2020-10-20] MEDS: MULTIVITAMINS WITH MINERALS, THERAPEUTIC TABLET PO SCH (08:49)
[2020-10-20] MEDS: METOPROLOL SUCCINATE 25 MG ER TABLET PO SCH (08:49)
[2020-10-20] MEDS: APIXABAN 5 MG TABLET PO SCH ×2 (08:49→16:09)
[2020-10-20 16:02] VITALS: BP 131/84
[2020-10-20] MEDS: QUEtiapine FUMARATE 100 MG TABLET PO SCH (20:58)
[2020-10-21] MEDS: METOPROLOL SUCCINATE 25 MG ER TABLET PO SCH (09:00)
[2020-10-21] MEDS: APIXABAN 5 MG TABLET PO SCH ×2 (09:00→16:41)
[2020-10-21] MEDS: MULTIVITAMINS WITH MINERALS, THERAPEUTIC TABLET PO SCH (09:00)
[2020-10-21 09:30] VITALS: BP 111/67
[2020-10-21 16:04] VITALS: BP 101/77
[2020-10-21] MEDS: QUEtiapine FUMARATE 100 MG TABLET PO SCH (20:38)
[2020-10-21] MEDS: QUEtiapine FUMARATE 25 MG TABLET PO SCH (21:00)
[2020-10-21] MEDS ORDERED: QUEtiapine FUMARATE 100 MG TABLET PO SCH (21:00)
[2020-10-21] MEDS: QUEtiapine FUMARATE 200 MG TABLET PO SCH (21:16)
[2020-10-22 03:30] VITALS: BP 115/61
[2020-10-22 08:13] VITALS: BP 137/106
[2020-10-22] MEDS: APIXABAN 5 MG TABLET PO SCH ×2 (09:00→16:37)
[2020-10-22] MEDS: METOPROLOL SUCCINATE 25 MG ER TABLET PO SCH (09:00)
[2020-10-22] MEDS: MULTIVITAMINS WITH MINERALS, THERAPEUTIC TABLET PO SCH (09:41)
[2020-10-22 16:13] VITALS: BP 136/62
[2020-10-22] MEDS: QUEtiapine FUMARATE 200 MG TABLET PO SCH (20:53)
[2020-10-22] MEDS: QUEtiapine FUMARATE 25 MG TABLET PO SCH (20:53)
[2020-10-23 08:29] VITALS: BP 109/58
[2020-10-23] MEDS: MULTIVITAMINS WITH MINERALS, THERAPEUTIC TABLET PO SCH (09:00)
[2020-10-23] MEDS: APIXABAN 5 MG TABLET PO SCH ×2 (09:00→17:03)
[2020-10-23] MEDS: METOPROLOL SUCCINATE 25 MG ER TABLET PO SCH (09:00)
[2020-10-23 16:11] VITALS: BP 125/65
[2020-10-23] MEDS: QUEtiapine FUMARATE 200 MG TABLET PO SCH (21:03)
[2020-10-23] MEDS: QUEtiapine FUMARATE 25 MG TABLET PO SCH (21:04)
[2020-10-24] MEDS: APIXABAN 5 MG TABLET PO SCH ×2 (08:25→16:26)
[2020-10-24] MEDS: METOPROLOL SUCCINATE 25 MG ER TABLET PO SCH (08:25)
[2020-10-24] MEDS: MULTIVITAMINS WITH MINERALS, THERAPEUTIC TABLET PO SCH (08:25)
[2020-10-24 08:48] VITALS: BP 110/70
[2020-10-24 15:37] LABS: COVID AG,FIA SOURCE NASOPHARYNGEAL
[2020-10-24 16:01] VITALS: BP 116/60
[2020-10-24] MEDS: QUEtiapine FUMARATE 25 MG TABLET PO SCH (20:32)
[2020-10-24] MEDS: QUEtiapine FUMARATE 200 MG TABLET PO SCH (20:32)
[2020-10-25 02:15] VITALS: BP 112/70
[2020-10-25 08:48] VITALS: BP 118/72
[2020-10-25] MEDS: MULTIVITAMINS WITH MINERALS, THERAPEUTIC TABLET PO SCH (10:28)
[2020-10-25] MEDS: METOPROLOL SUCCINATE 25 MG ER TABLET PO SCH (10:29)
[2020-10-25] MEDS: APIXABAN 5 MG TABLET PO SCH ×2 (10:29→16:24)
[2020-10-25] MEDS: QUEtiapine FUMARATE 200 MG TABLET PO SCH (20:42)
[2020-10-25] MEDS: QUEtiapine FUMARATE 25 MG TABLET PO SCH (20:43)
[2020-10-26 08:29] VITALS: BP 100/52
[2020-10-26] MEDS: APIXABAN 5 MG TABLET PO SCH ×2 (09:00→16:57)
[2020-10-26] MEDS: MULTIVITAMINS WITH MINERALS, THERAPEUTIC TABLET PO SCH (09:00)
[2020-10-26] MEDS: METOPROLOL SUCCINATE 25 MG ER TABLET PO SCH (09:00)
[2020-10-26 16:00] VITALS: BP 118/73
[2020-10-26] MEDS: QUEtiapine FUMARATE 200 MG TABLET PO SCH (20:41)
[2020-10-26] MEDS: QUEtiapine FUMARATE 25 MG TABLET PO SCH (20:41)
[2020-10-27 08:57] VITALS: BP 155/96
[2020-10-27] MEDS: MULTIVITAMINS WITH MINERALS, THERAPEUTIC TABLET PO SCH (09:00)
[2020-10-27] MEDS: METOPROLOL SUCCINATE 25 MG ER TABLET PO SCH (09:00)
[2020-10-27] MEDS: APIXABAN 5 MG TABLET PO SCH ×2 (09:00→17:00)
[2020-10-27 16:11] VITALS: BP 132/75
[2020-10-27] MEDS ORDERED: OLANZapine 5 MG RAPDIS TABLET PO PRN (20:45)
[2020-10-28 02:30] VITALS: BP 135/86
[2020-10-28 08:07] VITALS: BP 121/59
[2020-10-28] MEDS: APIXABAN 5 MG TABLET PO SCH ×2 (08:59→17:16)
[2020-10-28] MEDS: METOPROLOL SUCCINATE 25 MG ER TABLET PO SCH (08:59)
[2020-10-28] MEDS: MULTIVITAMINS WITH MINERALS, THERAPEUTIC TABLET PO SCH (08:59)
[2020-10-28] MEDS: OLANZapine 5 MG RAPDIS TABLET PO SCH ×2 (08:59→17:17)
[2020-10-28 16:46] VITALS: BP 132/76
[2020-10-28 17:17] VITALS: BP 133/81
[2020-10-28] MEDS: ACETAMINOPHEN 325 MG TABLET PO PRN (17:17)
[2020-10-28 18:17] VITALS: BP 134/82
[2020-10-29] MEDS: APIXABAN 5 MG TABLET PO SCH ×2 (08:13→17:17)
[2020-10-29] MEDS: OLANZapine 5 MG RAPDIS TABLET PO SCH ×2 (08:13→17:17)
[2020-10-29] MEDS: METOPROLOL SUCCINATE 25 MG ER TABLET PO SCH (08:13)
[2020-10-29] MEDS: MULTIVITAMINS WITH MINERALS, THERAPEUTIC TABLET PO SCH (08:13)
[2020-10-29 08:26] VITALS: BP 157/78
[2020-10-29 16:02] VITALS: BP 130/79
[2020-10-30 01:59] VITALS: BP 121/78
[2020-10-30] MEDS: METOPROLOL SUCCINATE 25 MG ER TABLET PO SCH (08:19)
[2020-10-30] MEDS: MULTIVITAMINS WITH MINERALS, THERAPEUTIC TABLET PO SCH (08:19)
[2020-10-30] MEDS: APIXABAN 5 MG TABLET PO SCH ×2 (08:19→16:29)
[2020-10-30 08:22] VITALS: BP 129/86
[2020-10-30] MEDS: OLANZapine 5 MG RAPDIS TABLET PO SCH ×2 (08:50→16:30)
[2020-10-30] MEDS ORDERED: COVID-19 VACCINE,AD26(JANSSEN)(J&J)/PF 0.5 ML VIAL IM. ONE (09:20)
[2020-10-30 16:31] VITALS: BP 138/74
[2020-10-31] MEDS: MULTIVITAMINS WITH MINERALS, THERAPEUTIC TABLET PO SCH ×2 (09:00→09:07)
[2020-10-31] MEDS: METOPROLOL SUCCINATE 25 MG ER TABLET PO SCH (09:07)
[2020-10-31] MEDS: APIXABAN 5 MG TABLET PO SCH ×2 (09:07→16:04)
[2020-10-31] MEDS: OLANZapine 5 MG RAPDIS TABLET PO SCH ×2 (09:07→16:04)
[2020-10-31 11:57] VITALS: BP 125/80
[2020-10-31 15:00] VITALS: BP 120/63
[2020-10-31 16:05] VITALS: BP 120/63
[2020-10-31 16:18] LABS: COVID AG,FIA SOURCE NASAL SWAB
[2020-11-01 08:41] VITALS: BP 118/71
[2020-11-01] MEDS: MULTIVITAMINS WITH MINERALS, THERAPEUTIC TABLET PO SCH (08:51)
[2020-11-01] MEDS: APIXABAN 5 MG TABLET PO SCH ×2 (08:51→16:33)
[2020-11-01] MEDS: METOPROLOL SUCCINATE 25 MG ER TABLET PO SCH (08:52)
[2020-11-01] MEDS: OLANZapine 5 MG RAPDIS TABLET PO SCH ×2 (08:52→16:33)
[2020-11-01 16:17] VITALS: BP 129/60
[2020-11-01] MEDS: ACETAMINOPHEN 325 MG TABLET PO PRN (19:50)
[2020-11-02 03:54] VITALS: BP 149/85
[2020-11-02] MEDS: OLANZapine 5 MG RAPDIS TABLET PO SCH ×3 (09:06→21:36)
[2020-11-02] MEDS: MULTIVITAMINS WITH MINERALS, THERAPEUTIC TABLET PO SCH (09:06)
[2020-11-02] MEDS: METOPROLOL SUCCINATE 25 MG ER TABLET PO SCH (09:06)
[2020-11-02] MEDS: APIXABAN 5 MG TABLET PO SCH ×2 (09:06→15:55)
[2020-11-02 09:40] VITALS: BP 136/78
[2020-11-02] MEDS: ACETAMINOPHEN 325 MG TABLET PO PRN ×2 (09:55→21:51)
[2020-11-02 09:57] VITALS: BP 136/78
[2020-11-02 10:56] VITALS: BP 132/76
[2020-11-02 16:05] VITALS: BP 140/90
[2020-11-02 16:08] VITALS: BP 140/90
[2020-11-03] MEDS: ACETAMINOPHEN 325 MG TABLET PO PRN ×2 (01:57→20:03)
[2020-11-03 02:09] VITALS: BP 121/65
[2020-11-03] MEDS: MULTIVITAMINS WITH MINERALS, THERAPEUTIC TABLET PO SCH (08:52)
[2020-11-03] MEDS: APIXABAN 5 MG TABLET PO SCH ×2 (08:53→16:26)
[2020-11-03] MEDS: METOPROLOL SUCCINATE 25 MG ER TABLET PO SCH (08:53)
[2020-11-03 08:56] LABS: COVID AG,FIA SOURCE NASAL SWAB
[2020-11-03 11:25] VITALS: BP 130/65
[2020-11-03 16:37] VITALS: BP 123/69
[2020-11-03] MEDS: OLANZapine 5 MG RAPDIS TABLET PO SCH (20:01)
[2020-11-04 01:08] VITALS: BP 152/67
[2020-11-04] MEDS: ACETAMINOPHEN 325 MG TABLET PO PRN (02:22)
[2020-11-04 08:10] VITALS: BP 123/65
[2020-11-04] MEDS: MULTIVITAMINS WITH MINERALS, THERAPEUTIC TABLET PO SCH (09:04)
[2020-11-04] MEDS: APIXABAN 5 MG TABLET PO SCH ×2 (09:04→16:42)
[2020-11-04] MEDS: METOPROLOL SUCCINATE 25 MG ER TABLET PO SCH (09:04)
[2020-11-04] MEDS ORDERED: PNEUMOCOCCAL VACCINE POLYVALENT 0.5 ML VIAL [PPSV23] IM. ONE (13:15)
[2020-11-04 16:24] VITALS: BP 128/61
[2020-11-04] MEDS: OLANZapine 5 MG RAPDIS TABLET PO SCH (20:11)
[2020-11-04] MEDS: LORazepam 0.5 MG TABLET PO PRN (20:11)
[2020-11-05] MEDS: ACETAMINOPHEN 325 MG TABLET PO PRN (00:50)
[2020-11-05 01:14] VITALS: BP 161/91
[2020-11-05 08:59] VITALS: BP 145/85
[2020-11-05] MEDS: METOPROLOL SUCCINATE 25 MG ER TABLET PO SCH (11:07)
[2020-11-05] MEDS: MULTIVITAMINS WITH MINERALS, THERAPEUTIC TABLET PO SCH (11:08)
[2020-11-05] MEDS: APIXABAN 5 MG TABLET PO SCH ×2 (11:08→16:09)
[2020-11-05 16:11] VITALS: BP 116/68
[2020-11-05] MEDS: OLANZapine 5 MG RAPDIS TABLET PO SCH (20:27)
[2020-11-06 08:03] VITALS: BP 131/92
[2020-11-06] MEDS: METOPROLOL SUCCINATE 25 MG ER TABLET PO SCH (10:13)
[2020-11-06] MEDS: APIXABAN 5 MG TABLET PO SCH ×2 (10:13→16:18)
[2020-11-06] MEDS: MULTIVITAMINS WITH MINERALS, THERAPEUTIC TABLET PO SCH (10:13)
[2020-11-06] MEDS: ACETAMINOPHEN 325 MG TABLET PO PRN ×2 (10:30→22:57)
[2020-11-06 16:21] VITALS: BP 122/76
[2020-11-06] MEDS: OLANZapine 5 MG RAPDIS TABLET PO SCH (20:08)
[2020-11-07] VITALS (9 sets, daily range): BP systolic 111–135; BP diastolic 55–80
[2020-11-07] MEDS: APIXABAN 5 MG TABLET PO SCH ×2 (08:34→16:08)
[2020-11-07] MEDS: MULTIVITAMINS WITH MINERALS, THERAPEUTIC TABLET PO SCH (08:34)
[2020-11-07] MEDS: METOPROLOL SUCCINATE 25 MG ER TABLET PO SCH (08:35)
[2020-11-07] MEDS: ACETAMINOPHEN 325 MG TABLET PO PRN ×3 (10:20→21:39)
[2020-11-07] MEDS: OLANZapine 5 MG RAPDIS TABLET PO SCH (20:19)
[2020-11-08 01:54] VITALS: BP 135/86
[2020-11-08 05:14] VITALS: BP 145/79
[2020-11-08] MEDS: ACETAMINOPHEN 325 MG TABLET PO PRN (05:14)
[2020-11-08 08:05] VITALS: BP 130/80
[2020-11-08] MEDS: MULTIVITAMINS WITH MINERALS, THERAPEUTIC TABLET PO SCH (08:54)
[2020-11-08] MEDS: METOPROLOL SUCCINATE 25 MG ER TABLET PO SCH (08:55)
[2020-11-08] MEDS: APIXABAN 5 MG TABLET PO SCH ×2 (08:55→16:02)
[2020-11-08 16:00] VITALS: BP 139/68
[2020-11-08] MEDS: OLANZapine 5 MG RAPDIS TABLET PO SCH (20:15)
[2020-11-09] MEDS: METOPROLOL SUCCINATE 25 MG ER TABLET PO SCH (09:00)
[2020-11-09] MEDS: MULTIVITAMINS WITH MINERALS, THERAPEUTIC TABLET PO SCH (09:00)
[2020-11-09] MEDS: APIXABAN 5 MG TABLET PO SCH ×2 (09:00→17:19)
[2020-11-09 11:39] VITALS: BP 130/65
[2020-11-09 16:16] VITALS: BP 137/73
[2020-11-09] MEDS: OLANZapine 5 MG RAPDIS TABLET PO SCH (20:43)
[2020-11-10 00:32] VITALS: BP 134/70
[2020-11-10 08:05] VITALS: BP 117/72
[2020-11-10] MEDS: METOPROLOL SUCCINATE 25 MG ER TABLET PO SCH (09:00)
[2020-11-10] MEDS: MULTIVITAMINS WITH MINERALS, THERAPEUTIC TABLET PO SCH (09:00)
[2020-11-10] MEDS: APIXABAN 5 MG TABLET PO SCH ×2 (09:00→17:10)
[2020-11-10 10:57] LABS: COVID AG,FIA SOURCE NASAL SWAB
[2020-11-10 16:42] VITALS: BP 146/63
[2020-11-10] MEDS: OLANZapine 10 MG RAPDIS TABLET PO SCH (21:38)
[2020-11-10] MEDS: LORazepam 0.5 MG TABLET PO PRN (21:38)
[2020-11-11 02:21] VITALS: BP 135/86
[2020-11-11] MEDS: ACETAMINOPHEN 325 MG TABLET PO PRN ×2 (02:28→16:10)
[2020-11-11] MEDS: METOPROLOL SUCCINATE 25 MG ER TABLET PO SCH (09:31)
[2020-11-11] MEDS: APIXABAN 5 MG TABLET PO SCH ×2 (09:31→16:09)
[2020-11-11] MEDS: MULTIVITAMINS WITH MINERALS, THERAPEUTIC TABLET PO SCH (09:31)
[2020-11-11 16:12] VITALS: BP 121/69
[2020-11-11] MEDS: OLANZapine 10 MG RAPDIS TABLET PO SCH (22:28)
[2020-11-12] VITALS (7 sets, daily range): BP systolic 113–140; BP diastolic 64–83
[2020-11-12] MEDS: MULTIVITAMINS WITH MINERALS, THERAPEUTIC TABLET PO SCH (08:25)
[2020-11-12] MEDS: ACETAMINOPHEN 325 MG TABLET PO PRN ×2 (08:25→14:07)
[2020-11-12] MEDS: APIXABAN 5 MG TABLET PO SCH ×2 (08:26→16:38)
[2020-11-12] MEDS: METOPROLOL SUCCINATE 25 MG ER TABLET PO SCH (08:26)
[2020-11-12] MEDS: OLANZapine 10 MG RAPDIS TABLET PO SCH (20:45)
[2020-11-13 04:05] VITALS: BP 140/75
[2020-11-13 08:23] VITALS: BP 137/78
[2020-11-13] MEDS: APIXABAN 5 MG TABLET PO SCH ×2 (09:44→16:19)
[2020-11-13] MEDS: METOPROLOL SUCCINATE 25 MG ER TABLET PO SCH (09:45)
[2020-11-13] MEDS: MULTIVITAMINS WITH MINERALS, THERAPEUTIC TABLET PO SCH (09:46)
[2020-11-13 16:21] VITALS: BP 127/80
[2020-11-13] MEDS: OLANZapine 10 MG RAPDIS TABLET PO SCH (20:13)
[2020-11-14 01:21] VITALS: BP 140/80
[2020-11-14 08:19] VITALS: BP 145/75
[2020-11-14] MEDS: MULTIVITAMINS WITH MINERALS, THERAPEUTIC TABLET PO SCH (09:00)
[2020-11-14] MEDS: METOPROLOL SUCCINATE 25 MG ER TABLET PO SCH (09:00)
[2020-11-14] MEDS: APIXABAN 5 MG TABLET PO SCH ×2 (09:00→17:24)
[2020-11-14 16:25] VITALS: BP 126/77
[2020-11-14] MEDS: OLANZapine 10 MG RAPDIS TABLET PO SCH (20:47)
[2020-11-15 01:34] VITALS: BP 142/79
[2020-11-15] MEDS: ACETAMINOPHEN 325 MG TABLET PO PRN (01:34)
[2020-11-15 08:07] VITALS: BP 133/66
[2020-11-15] MEDS: MULTIVITAMINS WITH MINERALS, THERAPEUTIC TABLET PO SCH (08:59)
[2020-11-15] MEDS: METOPROLOL SUCCINATE 25 MG ER TABLET PO SCH (09:00)
[2020-11-15] MEDS: APIXABAN 5 MG TABLET PO SCH ×2 (09:00→17:02)
[2020-11-15 16:14] VITALS: BP 121/65
[2020-11-15] MEDS: OLANZapine 10 MG RAPDIS TABLET PO SCH (21:00)
[2020-11-16] MEDS: ACETAMINOPHEN 325 MG TABLET PO PRN (01:00)
[2020-11-16] MEDS: MULTIVITAMINS WITH MINERALS, THERAPEUTIC TABLET PO SCH (10:04)
[2020-11-16] MEDS: METOPROLOL SUCCINATE 25 MG ER TABLET PO SCH (10:04)
[2020-11-16] MEDS: APIXABAN 5 MG TABLET PO SCH ×2 (10:04→16:00)
[2020-11-16 16:20] VITALS: BP 110/70
[2020-11-16] MEDS: OLANZapine 10 MG RAPDIS TABLET PO SCH (20:05)
[2020-11-17 04:07] VITALS: BP 138/86
[2020-11-17 08:21] VITALS: BP 128/66
[2020-11-17] MEDS: MULTIVITAMINS WITH MINERALS, THERAPEUTIC TABLET PO SCH (13:18)
[2020-11-17] MEDS: METOPROLOL SUCCINATE 25 MG ER TABLET PO SCH (13:18)
[2020-11-17] MEDS: APIXABAN 5 MG TABLET PO SCH ×2 (13:19→16:15)
[2020-11-17 15:25] LABS: COVID AG,FIA SOURCE NASAL SWAB
[2020-11-17 16:00] VITALS: BP 132/65
[2020-11-17] MEDS: OLANZapine 10 MG RAPDIS TABLET PO SCH (20:01)
[2020-11-18 04:10] VITALS: BP 135/69
[2020-11-18] MEDS: METOPROLOL SUCCINATE 25 MG ER TABLET PO SCH (09:00)
[2020-11-18] MEDS: APIXABAN 5 MG TABLET PO SCH ×2 (09:00→16:05)
[2020-11-18] MEDS: MULTIVITAMINS WITH MINERALS, THERAPEUTIC TABLET PO SCH (09:00)
[2020-11-18 16:11] VITALS: BP 142/75
[2020-11-18] MEDS: OLANZapine 10 MG RAPDIS TABLET PO SCH (20:01)
[2020-11-19 02:43] VITALS: BP 133/96
[2020-11-19 08:03] VITALS: BP 125/74
[2020-11-19] MEDS: APIXABAN 5 MG TABLET PO SCH ×2 (09:28→16:14)
[2020-11-19] MEDS: METOPROLOL SUCCINATE 25 MG ER TABLET PO SCH (09:29)
[2020-11-19] MEDS: MULTIVITAMINS WITH MINERALS, THERAPEUTIC TABLET PO SCH (09:29)
[2020-11-19 16:38] VITALS: BP 120/69
[2020-11-19] MEDS: OLANZapine 10 MG RAPDIS TABLET PO SCH (20:34)
[2020-11-20 02:27] VITALS: BP 93/72
[2020-11-20] MEDS: ACETAMINOPHEN 325 MG TABLET PO PRN (02:27)
[2020-11-20 08:38] VITALS: BP 132/73
[2020-11-20] MEDS: METOPROLOL SUCCINATE 25 MG ER TABLET PO SCH (09:00)
[2020-11-20] MEDS: MULTIVITAMINS WITH MINERALS, THERAPEUTIC TABLET PO SCH (09:00)
[2020-11-20] MEDS: APIXABAN 5 MG TABLET PO SCH ×2 (09:00→16:10)
[2020-11-20 16:24] VITALS: BP 121/72
[2020-11-20] MEDS: OLANZapine 10 MG RAPDIS TABLET PO SCH (21:11)
[2020-11-21] MEDS: METOPROLOL SUCCINATE 25 MG ER TABLET PO SCH (10:39)
[2020-11-21] MEDS: MULTIVITAMINS WITH MINERALS, THERAPEUTIC TABLET PO SCH (10:39)
[2020-11-21] MEDS: APIXABAN 5 MG TABLET PO SCH ×2 (10:40→17:03)
[2020-11-21] MEDS: ACETAMINOPHEN 325 MG TABLET PO PRN (10:41)
[2020-11-21 10:42] VITALS: BP 103/58
[2020-11-21 11:42] VITALS: BP 112/63
[2020-11-21 16:47] VITALS: BP 142/98
[2020-11-21] MEDS: OLANZapine 10 MG RAPDIS TABLET PO SCH (20:26)
[2020-11-22] MEDS: MULTIVITAMINS WITH MINERALS, THERAPEUTIC TABLET PO SCH (10:15)
[2020-11-22] MEDS: METOPROLOL SUCCINATE 25 MG ER TABLET PO SCH (10:15)
[2020-11-22] MEDS: APIXABAN 5 MG TABLET PO SCH ×2 (10:16→16:37)
[2020-11-22 16:31] VITALS: BP 140/63
[2020-11-22] MEDS: OLANZapine 10 MG RAPDIS TABLET PO SCH (21:11)
[2020-11-23] MEDS: METOPROLOL SUCCINATE 25 MG ER TABLET PO SCH (08:38)
[2020-11-23] MEDS: MULTIVITAMINS WITH MINERALS, THERAPEUTIC TABLET PO SCH (08:39)
[2020-11-23] MEDS: APIXABAN 5 MG TABLET PO SCH ×2 (08:39→16:21)
[2020-11-23 11:07] VITALS: BP 150/65
[2020-11-23 16:03] VITALS: BP 132/77
[2020-11-23] MEDS: OLANZapine 10 MG RAPDIS TABLET PO SCH (21:12)
[2020-11-24 01:08] VITALS: BP 127/66
[2020-11-24 03:07] VITALS: BP 143/82
[2020-11-24] MEDS: ACETAMINOPHEN 325 MG TABLET PO PRN ×2 (03:07→08:33)
[2020-11-24 08:09] VITALS: BP 169/82
[2020-11-24] MEDS: MULTIVITAMINS WITH MINERALS, THERAPEUTIC TABLET PO SCH (08:33)
[2020-11-24] MEDS: METOPROLOL SUCCINATE 25 MG ER TABLET PO SCH (08:33)
[2020-11-24] MEDS: APIXABAN 5 MG TABLET PO SCH ×2 (08:33→16:01)
[2020-11-24 14:28] LABS: COVID AG,FIA SOURCE NASOPHARYNGEAL
[2020-11-24] MEDS: OLANZapine 10 MG RAPDIS TABLET PO SCH (20:23)
[2020-11-25 03:40] VITALS: BP 140/80
[2020-11-25] MEDS: ACETAMINOPHEN 325 MG TABLET PO PRN (05:55)
[2020-11-25 05:56] VITALS: BP 135/76
[2020-11-25 09:30] VITALS: BP 133/89
[2020-11-25] MEDS: METOPROLOL SUCCINATE 25 MG ER TABLET PO SCH (10:00)
[2020-11-25] MEDS: APIXABAN 5 MG TABLET PO SCH ×2 (10:00→17:23)
[2020-11-25] MEDS: MULTIVITAMINS WITH MINERALS, THERAPEUTIC TABLET PO SCH (10:00)
[2020-11-25 16:54] VITALS: BP 138/78
[2020-11-25] MEDS: OLANZapine 10 MG RAPDIS TABLET PO SCH (20:39)
[2020-11-26 03:00] VITALS: BP 149/80
[2020-11-26 08:08] VITALS: BP 150/90
[2020-11-26 08:41] VITALS: BP 142/80
[2020-11-26] MEDS: APIXABAN 5 MG TABLET PO SCH ×2 (09:46→16:26)
[2020-11-26] MEDS: MULTIVITAMINS WITH MINERALS, THERAPEUTIC TABLET PO SCH (09:46)
[2020-11-26] MEDS: METOPROLOL SUCCINATE 25 MG ER TABLET PO SCH (09:46)
[2020-11-26 16:07] VITALS: BP 143/73
[2020-11-26] MEDS: OLANZapine 10 MG RAPDIS TABLET PO SCH (21:12)
[2020-11-27 03:15] VITALS: BP 145/69
[2020-11-27] MEDS: ACETAMINOPHEN 325 MG TABLET PO PRN (03:34)
[2020-11-27 08:06] VITALS: BP 121/73
[2020-11-27] MEDS: APIXABAN 5 MG TABLET PO SCH ×2 (09:34→16:21)
[2020-11-27] MEDS: MULTIVITAMINS WITH MINERALS, THERAPEUTIC TABLET PO SCH (09:37)
[2020-11-27] MEDS: METOPROLOL SUCCINATE 25 MG ER TABLET PO SCH (09:37)
[2020-11-27 16:00] VITALS: BP 120/61
[2020-11-27] MEDS: OLANZapine 10 MG RAPDIS TABLET PO SCH (20:03)
[2020-11-27] MEDS: LORazepam 0.5 MG TABLET PO PRN (21:24)
[2020-11-28 01:24] VITALS: BP 135/80
[2020-11-28 08:42] VITALS: BP 120/80
[2020-11-28] MEDS: APIXABAN 5 MG TABLET PO SCH ×2 (10:00→17:04)
[2020-11-28] MEDS: METOPROLOL SUCCINATE 25 MG ER TABLET PO SCH (10:00)
[2020-11-28] MEDS: MULTIVITAMINS WITH MINERALS, THERAPEUTIC TABLET PO SCH (10:00)
[2020-11-28 17:13] VITALS: BP 124/84
[2020-11-28] MEDS: LORazepam 0.5 MG TABLET PO PRN (19:09)
[2020-11-28] MEDS: OLANZapine 10 MG RAPDIS TABLET PO SCH (20:23)
[2020-11-29 08:30] VITALS: BP 120/62
[2020-11-29] MEDS: APIXABAN 5 MG TABLET PO SCH ×2 (09:25→16:51)
[2020-11-29] MEDS: METOPROLOL SUCCINATE 25 MG ER TABLET PO SCH (09:25)
[2020-11-29] MEDS: MULTIVITAMINS WITH MINERALS, THERAPEUTIC TABLET PO SCH (09:25)
[2020-11-29 16:06] VITALS: BP 155/78
[2020-11-29] MEDS: OLANZapine 10 MG RAPDIS TABLET PO SCH (20:43)
[2020-11-29] MEDS: ZOLPIDEM TARTRATE 5 MG TABLET PO PRN (22:06)
[2020-11-29 22:13] VITALS: BP 139/77
[2020-11-29] MEDS: ACETAMINOPHEN 325 MG TABLET PO PRN (22:13)
[2020-11-30 02:07] VITALS: BP 140/72
[2020-11-30 08:50] VITALS: BP 122/70
[2020-11-30] MEDS: METOPROLOL SUCCINATE 25 MG ER TABLET PO SCH (12:06)
[2020-11-30] MEDS: APIXABAN 5 MG TABLET PO SCH ×2 (12:06→17:12)
[2020-11-30] MEDS: MULTIVITAMINS WITH MINERALS, THERAPEUTIC TABLET PO SCH (12:06)
[2020-11-30 14:11] LABS: APPEARANCE,URINE TURBID (CLEAR); BILIRUBIN,URINE NEGATIVE (NEGATIVE); GLUCOSE, URINE (UA) NEGATIVE (NEGATIVE); KETONES,URINE NEGATIVE (NEGATIVE); LEUKOCYTE ESTERASE ,URINE SMALL (NEGATIVE); NITRATE,URINE POSITIVE (NEGATIVE); OCCULT BLOOD,URINE TRACE (NEGATIVE); PH,URINE 7.5 (5.0-8.0); PROTEIN,URINE NEGATIVE (NEGATIVE)
[2020-11-30 14:46] LABS: BACTERIA,URINE Few /HPF (None Seen); RBC,URINE 0-2 /HPF (0-2); SQUAMOUS EPITHELIAL CELL,UR Few /LPF (None Seen)
[2020-11-30] MEDS: NITROFURANTOIN MONOHYD/M-CRYST 100 MG CAPSULE [MACROBID] PO SCH (17:12)
[2020-11-30] MEDS ORDERED: HydrOXYzine PAMOATE 25 MG CAPSULE PO PRN (18:30)
[2020-11-30] MEDS: OLANZapine 10 MG RAPDIS TABLET PO SCH (20:50)
[2020-12-01 03:20] VITALS: BP 114/66
[2020-12-01 08:13] VITALS: BP 127/54
[2020-12-01] MEDS: MULTIVITAMINS WITH MINERALS, THERAPEUTIC TABLET PO SCH (08:26)
[2020-12-01] MEDS: APIXABAN 5 MG TABLET PO SCH ×2 (08:26→16:01)
[2020-12-01] MEDS: NITROFURANTOIN MONOHYD/M-CRYST 100 MG CAPSULE [MACROBID] PO SCH ×2 (08:26→16:02)
[2020-12-01] MEDS: METOPROLOL SUCCINATE 25 MG ER TABLET PO SCH (08:27)
[2020-12-01 15:30] LABS: COVID AG,FIA SOURCE NASAL SWAB
[2020-12-01 16:32] VITALS: BP 105/71
[2020-12-01] MEDS: OLANZapine 10 MG RAPDIS TABLET PO SCH (20:02)
[2020-12-02] MEDS: METOPROLOL SUCCINATE 25 MG ER TABLET PO SCH (08:12)
[2020-12-02] MEDS: NITROFURANTOIN MONOHYD/M-CRYST 100 MG CAPSULE [MACROBID] PO SCH ×2 (08:12→17:23)
[2020-12-02] MEDS: MULTIVITAMINS WITH MINERALS, THERAPEUTIC TABLET PO SCH (08:12)
[2020-12-02] MEDS: APIXABAN 5 MG TABLET PO SCH ×2 (08:12→17:23)
[2020-12-02 08:27] VITALS: BP 143/59
[2020-12-02 16:53] VITALS: BP 141/84
[2020-12-02] MEDS: OLANZapine 5 MG RAPDIS TABLET PO SCH (21:13)
[2020-12-03 00:38] VITALS: BP 135/63
[2020-12-03] MEDS: LURASIDONE HCL 20 MG TABLET PO SCH (06:53)
[2020-12-03] MEDS: MULTIVITAMINS WITH MINERALS, THERAPEUTIC TABLET PO SCH (08:00)
[2020-12-03] MEDS: APIXABAN 5 MG TABLET PO SCH ×2 (08:00→18:57)
[2020-12-03] MEDS: NITROFURANTOIN MONOHYD/M-CRYST 100 MG CAPSULE [MACROBID] PO SCH ×2 (08:00→18:57)
[2020-12-03] MEDS: METOPROLOL SUCCINATE 25 MG ER TABLET PO SCH (08:04)
[2020-12-03 08:52] VITALS: BP 138/68
[2020-12-03] MEDS: OLANZapine 5 MG RAPDIS TABLET PO SCH (20:29)
[2020-12-04] MEDS: LURASIDONE HCL 20 MG TABLET PO SCH (06:30)
[2020-12-04 08:19] VITALS: BP 122/52
[2020-12-04] MEDS: APIXABAN 5 MG TABLET PO SCH ×2 (08:31→16:34)
[2020-12-04] MEDS: MULTIVITAMINS WITH MINERALS, THERAPEUTIC TABLET PO SCH (08:31)
[2020-12-04] MEDS: NITROFURANTOIN MONOHYD/M-CRYST 100 MG CAPSULE [MACROBID] PO SCH ×2 (08:32→16:34)
[2020-12-04] MEDS: METOPROLOL SUCCINATE 25 MG ER TABLET PO SCH (08:32)
[2020-12-04 16:16] VITALS: BP 109/46
[2020-12-04] MEDS: OLANZapine 5 MG RAPDIS TABLET PO SCH (20:03)
[2020-12-05] MEDS: LURASIDONE HCL 40 MG TABLET PO SCH (06:32)
[2020-12-05 08:52] VITALS: BP 144/69
[2020-12-05] MEDS: METOPROLOL SUCCINATE 25 MG ER TABLET PO SCH (09:22)
[2020-12-05] MEDS: APIXABAN 5 MG TABLET PO SCH ×2 (09:22→16:04)
[2020-12-05] MEDS: MULTIVITAMINS WITH MINERALS, THERAPEUTIC TABLET PO SCH (09:22)
[2020-12-05] MEDS: NITROFURANTOIN MONOHYD/M-CRYST 100 MG CAPSULE [MACROBID] PO SCH (09:22)
[2020-12-05 16:12] VITALS: BP 117/65
[2020-12-05] MEDS: OLANZapine 5 MG RAPDIS TABLET PO SCH (20:01)
[2020-12-06 02:52] VITALS: BP 138/77
[2020-12-06] MEDS: LURASIDONE HCL 40 MG TABLET PO SCH (07:38)
[2020-12-06 08:15] VITALS: BP 115/53
[2020-12-06] MEDS: APIXABAN 5 MG TABLET PO SCH ×2 (10:14→16:42)
[2020-12-06] MEDS: METOPROLOL SUCCINATE 25 MG ER TABLET PO SCH (10:14)
[2020-12-06] MEDS: MULTIVITAMINS WITH MINERALS, THERAPEUTIC TABLET PO SCH (10:15)
[2020-12-06 16:26] VITALS: BP 122/61
[2020-12-06] MEDS: OLANZapine 5 MG RAPDIS TABLET PO SCH (20:20)
[2020-12-07 00:24] VITALS: BP 106/60
[2020-12-07] MEDS: LURASIDONE HCL 40 MG TABLET PO SCH (07:30)
[2020-12-07 08:12] VITALS: BP 106/47
[2020-12-07] MEDS: APIXABAN 5 MG TABLET PO SCH ×2 (10:29→16:42)
[2020-12-07] MEDS: MULTIVITAMINS WITH MINERALS, THERAPEUTIC TABLET PO SCH (10:30)
[2020-12-07] MEDS: METOPROLOL SUCCINATE 25 MG ER TABLET PO SCH (10:30)
[2020-12-07 16:29] VITALS: BP 124/68
[2020-12-07] MEDS: OLANZapine 5 MG RAPDIS TABLET PO SCH (20:31)
[2020-12-08] MEDS: LURASIDONE HCL 40 MG TABLET PO SCH (06:48)
[2020-12-08] MEDS: APIXABAN 5 MG TABLET PO SCH ×2 (08:02→17:12)
[2020-12-08] MEDS: MULTIVITAMINS WITH MINERALS, THERAPEUTIC TABLET PO SCH (08:02)
[2020-12-08] MEDS: METOPROLOL SUCCINATE 25 MG ER TABLET PO SCH (08:05)
[2020-12-08 08:34] VITALS: BP 104/57
[2020-12-08 11:49] LABS: COVID AG,FIA SOURCE NASAL SWAB
[2020-12-08 16:04] VITALS: BP 133/78
[2020-12-08] MEDS: OLANZapine 5 MG RAPDIS TABLET PO SCH (20:54)
[2020-12-09] MEDS: LURASIDONE HCL 40 MG TABLET PO SCH (07:14)
[2020-12-09 08:00] VITALS: BP 139/66
[2020-12-09] MEDS: APIXABAN 5 MG TABLET PO SCH ×2 (08:09→16:27)
[2020-12-09] MEDS: MULTIVITAMINS WITH MINERALS, THERAPEUTIC TABLET PO SCH (08:09)
[2020-12-09] MEDS: METOPROLOL SUCCINATE 25 MG ER TABLET PO SCH (08:14)
[2020-12-09 16:53] VITALS: BP 108/57
[2020-12-09] MEDS: OLANZapine 5 MG RAPDIS TABLET PO SCH (20:25)
[2020-12-10 05:30] VITALS: BP 145/80
[2020-12-10] MEDS: LURASIDONE HCL 40 MG TABLET PO SCH (07:01)
[2020-12-10] MEDS: APIXABAN 5 MG TABLET PO SCH ×2 (09:05→16:54)
[2020-12-10] MEDS: METOPROLOL SUCCINATE 25 MG ER TABLET PO SCH (09:06)
[2020-12-10] MEDS: MULTIVITAMINS WITH MINERALS, THERAPEUTIC TABLET PO SCH (09:07)
[2020-12-10 10:01] VITALS: BP 140/90
[2020-12-10 16:46] VITALS: BP 121/67
[2020-12-10] MEDS: OLANZapine 5 MG RAPDIS TABLET PO SCH (20:33)
[2020-12-11 03:17] VITALS: BP 116/78
[2020-12-11] MEDS: LURASIDONE HCL 40 MG TABLET PO SCH (07:00)
[2020-12-11 08:33] VITALS: BP 129/75
[2020-12-11] MEDS: APIXABAN 5 MG TABLET PO SCH ×2 (09:38→17:01)
[2020-12-11] MEDS: MULTIVITAMINS WITH MINERALS, THERAPEUTIC TABLET PO SCH (09:38)
[2020-12-11] MEDS: METOPROLOL SUCCINATE 25 MG ER TABLET PO SCH (09:39)
[2020-12-11 16:00] VITALS: BP 128/64
[2020-12-11] MEDS: OLANZapine 5 MG RAPDIS TABLET PO SCH (20:31)
[2020-12-12 01:30] VITALS: BP 120/56
[2020-12-12] MEDS: LURASIDONE HCL 40 MG TABLET PO SCH (06:40)
[2020-12-12] MEDS: METOPROLOL SUCCINATE 25 MG ER TABLET PO SCH (09:00)
[2020-12-12] MEDS: MULTIVITAMINS WITH MINERALS, THERAPEUTIC TABLET PO SCH (09:00)
[2020-12-12] MEDS: APIXABAN 5 MG TABLET PO SCH ×2 (09:00→17:45)
[2020-12-12 16:06] VITALS: BP 127/66
[2020-12-12] MEDS: OLANZapine 5 MG RAPDIS TABLET PO SCH (21:08)
[2020-12-13] MEDS: LURASIDONE HCL 40 MG TABLET PO SCH (06:39)
[2020-12-13 08:36] VITALS: BP 138/76
[2020-12-13] MEDS: APIXABAN 5 MG TABLET PO SCH ×2 (10:06→17:10)
[2020-12-13] MEDS: METOPROLOL SUCCINATE 25 MG ER TABLET PO SCH (10:06)
[2020-12-13] MEDS: MULTIVITAMINS WITH MINERALS, THERAPEUTIC TABLET PO SCH (10:06)
[2020-12-13 16:06] VITALS: BP 140/79
[2020-12-13] MEDS: OLANZapine 5 MG RAPDIS TABLET PO SCH (20:38)
[2020-12-14 04:11] VITALS: BP 128/64
[2020-12-14] MEDS: LURASIDONE HCL 40 MG TABLET PO SCH (06:39)
[2020-12-14] MEDS: APIXABAN 5 MG TABLET PO SCH ×2 (08:25→17:47)
[2020-12-14] MEDS: MULTIVITAMINS WITH MINERALS, THERAPEUTIC TABLET PO SCH (08:25)
[2020-12-14] MEDS: METOPROLOL SUCCINATE 25 MG ER TABLET PO SCH (10:17)
[2020-12-14 11:33] VITALS: BP 135/63
[2020-12-14 13:41] VITALS: BP 113/78
[2020-12-14] MEDS: OLANZapine 5 MG RAPDIS TABLET PO SCH (20:50)
[2020-12-15 01:42] VITALS: BP 140/77
[2020-12-15] MEDS: LURASIDONE HCL 40 MG TABLET PO SCH (06:48)
[2020-12-15 08:00] VITALS: BP 129/80
[2020-12-15] MEDS: APIXABAN 5 MG TABLET PO SCH ×2 (08:21→17:04)
[2020-12-15] MEDS: MULTIVITAMINS WITH MINERALS, THERAPEUTIC TABLET PO SCH (08:21)
[2020-12-15] MEDS: METOPROLOL SUCCINATE 25 MG ER TABLET PO SCH (08:21)
[2020-12-15 16:13] LABS: COVID AG,FIA SOURCE NASOPHARYNGEAL
[2020-12-15 16:43] VITALS: BP 155/95
[2020-12-15] MEDS: OLANZapine 5 MG RAPDIS TABLET PO SCH (20:44)
[2020-12-16 00:54] VITALS: BP 149/82
[2020-12-16 04:02] VITALS: BP 139/80
[2020-12-16] MEDS: LURASIDONE HCL 40 MG TABLET PO SCH (06:41)
[2020-12-16] MEDS: MULTIVITAMINS WITH MINERALS, THERAPEUTIC TABLET PO SCH (08:37)
[2020-12-16] MEDS: METOPROLOL SUCCINATE 25 MG ER TABLET PO SCH (08:37)
[2020-12-16] MEDS: APIXABAN 5 MG TABLET PO SCH ×2 (08:37→16:00)
[2020-12-16 08:59] VITALS: BP 148/66
[2020-12-16] MEDS: OLANZapine 5 MG RAPDIS TABLET PO SCH (20:03)
[2020-12-17] MEDS: LURASIDONE HCL 40 MG TABLET PO SCH (06:50)
[2020-12-17] MEDS: MULTIVITAMINS WITH MINERALS, THERAPEUTIC TABLET PO SCH (10:09)
[2020-12-17] MEDS: METOPROLOL SUCCINATE 25 MG ER TABLET PO SCH (10:10)
[2020-12-17] MEDS: APIXABAN 5 MG TABLET PO SCH ×2 (10:10→17:13)
[2020-12-17 10:33] VITALS: BP 134/79
[2020-12-17 16:36] VITALS: BP 132/77
[2020-12-17] MEDS: OLANZapine 5 MG RAPDIS TABLET PO SCH (20:32)
[2020-12-18] MEDS: LURASIDONE HCL 40 MG TABLET PO SCH (06:30)
[2020-12-18] MEDS: MULTIVITAMINS WITH MINERALS, THERAPEUTIC TABLET PO SCH (09:00)
[2020-12-18] MEDS: APIXABAN 5 MG TABLET PO SCH ×2 (09:00→17:08)
[2020-12-18] MEDS: METOPROLOL SUCCINATE 25 MG ER TABLET PO SCH (09:00)
[2020-12-18 16:01] VITALS: BP 122/60
[2020-12-18] MEDS: OLANZapine 5 MG RAPDIS TABLET PO SCH (20:06)
[2020-12-19] MEDS: LURASIDONE HCL 40 MG TABLET PO SCH (06:26)
[2020-12-19] MEDS: MULTIVITAMINS WITH MINERALS, THERAPEUTIC TABLET PO SCH (10:42)
[2020-12-19] MEDS: METOPROLOL SUCCINATE 25 MG ER TABLET PO SCH (10:42)
[2020-12-19] MEDS: APIXABAN 5 MG TABLET PO SCH ×2 (10:42→17:03)
[2020-12-19] MEDS: OLANZapine 5 MG RAPDIS TABLET PO SCH (20:59)
[2020-12-20] MEDS: LURASIDONE HCL 40 MG TABLET PO SCH (06:38)
[2020-12-20] MEDS: MULTIVITAMINS WITH MINERALS, THERAPEUTIC TABLET PO SCH (10:14)
[2020-12-20] MEDS: METOPROLOL SUCCINATE 25 MG ER TABLET PO SCH (10:15)
[2020-12-20] MEDS: APIXABAN 5 MG TABLET PO SCH ×2 (10:15→16:38)
[2020-12-20 16:11] VITALS: BP 117/63
[2020-12-20] MEDS: OLANZapine 5 MG RAPDIS TABLET PO SCH (20:11)
[2020-12-21] MEDS: LURASIDONE HCL 40 MG TABLET PO SCH (06:40)
[2020-12-21] MEDS: METOPROLOL SUCCINATE 25 MG ER TABLET PO SCH ×2 (09:00→09:40)
[2020-12-21] MEDS: APIXABAN 5 MG TABLET PO SCH ×3 (09:00→16:48)
[2020-12-21] MEDS: MULTIVITAMINS WITH MINERALS, THERAPEUTIC TABLET PO SCH ×2 (09:00→09:39)
[2020-12-21 10:09] VITALS: BP 110/69
[2020-12-21 16:02] VITALS: BP 122/72
[2020-12-21] MEDS: OLANZapine 5 MG RAPDIS TABLET PO SCH (20:47)
[2020-12-22] MEDS: MULTIVITAMINS WITH MINERALS, THERAPEUTIC TABLET PO SCH (08:18)
[2020-12-22] MEDS: METOPROLOL SUCCINATE 25 MG ER TABLET PO SCH (08:19)
[2020-12-22] MEDS: APIXABAN 5 MG TABLET PO SCH ×2 (08:19→17:05)
[2020-12-22 08:56] VITALS: BP 141/80
[2020-12-22] MEDS: LURASIDONE HCL 40 MG TABLET PO SCH (09:56)
[2020-12-22] MEDS: OLANZapine 5 MG RAPDIS TABLET PO SCH (21:44)
[2020-12-23] MEDS: LURASIDONE HCL 40 MG TABLET PO SCH (06:56)
[2020-12-23 09:28] VITALS: BP 112/63
[2020-12-23] MEDS: MULTIVITAMINS WITH MINERALS, THERAPEUTIC TABLET PO SCH (10:31)
[2020-12-23] MEDS: METOPROLOL SUCCINATE 25 MG ER TABLET PO SCH (10:31)
[2020-12-23 16:22] VITALS: BP 143/83
[2020-12-23] MEDS: APIXABAN 5 MG TABLET PO SCH (20:09)
[2020-12-23] MEDS: OLANZapine 5 MG RAPDIS TABLET PO SCH ×2 (20:10→20:59)
[2020-12-24] MEDS: LURASIDONE HCL 60 MG TABLET PO SCH (07:06)
[2020-12-24 07:29] LABS: COVID AG,FIA SOURCE NASOPHARYNGEAL
[2020-12-24] MEDS: APIXABAN 5 MG TABLET PO SCH ×2 (08:48→16:48)
[2020-12-24] MEDS: MULTIVITAMINS WITH MINERALS, THERAPEUTIC TABLET PO SCH (08:48)
[2020-12-24] MEDS: METOPROLOL SUCCINATE 25 MG ER TABLET PO SCH (08:49)
[2020-12-24 09:04] VITALS: BP 141/77
[2020-12-24 17:59] VITALS: BP 132/80
[2020-12-24] MEDS: OLANZapine 5 MG RAPDIS TABLET PO SCH (20:48)
[2020-12-25] MEDS: LURASIDONE HCL 60 MG TABLET PO SCH (06:30)
[2020-12-25] MEDS: MULTIVITAMINS WITH MINERALS, THERAPEUTIC TABLET PO SCH (09:53)
[2020-12-25] MEDS: METOPROLOL SUCCINATE 25 MG ER TABLET PO SCH (09:54)
[2020-12-25] MEDS: APIXABAN 5 MG TABLET PO SCH ×2 (09:55→17:14)
[2020-12-25 11:09] VITALS: BP 110/80
[2020-12-25 16:51] VITALS: BP 112/60
[2020-12-25] MEDS: OLANZapine 5 MG RAPDIS TABLET PO SCH (20:41)
[2020-12-26] MEDS: LURASIDONE HCL 60 MG TABLET PO SCH (07:06)
[2020-12-26] MEDS: METOPROLOL SUCCINATE 25 MG ER TABLET PO SCH (09:36)
[2020-12-26] MEDS: APIXABAN 5 MG TABLET PO SCH ×2 (09:36→16:22)
[2020-12-26] MEDS: MULTIVITAMINS WITH MINERALS, THERAPEUTIC TABLET PO SCH (09:36)
[2020-12-26 11:18] VITALS: BP 114/68
[2020-12-26 16:30] VITALS: BP 130/70
[2020-12-26] MEDS: OLANZapine 5 MG RAPDIS TABLET PO SCH (20:27)
[2020-12-27] MEDS: LURASIDONE HCL 60 MG TABLET PO SCH (06:33)
[2020-12-27] MEDS: METOPROLOL SUCCINATE 25 MG ER TABLET PO SCH (08:40)
[2020-12-27] MEDS: APIXABAN 5 MG TABLET PO SCH ×2 (08:40→16:45)
[2020-12-27] MEDS: MULTIVITAMINS WITH MINERALS, THERAPEUTIC TABLET PO SCH (08:40)
[2020-12-27] MEDS: OLANZapine 5 MG RAPDIS TABLET PO SCH (20:34)
[2020-12-28] MEDS: LURASIDONE HCL 60 MG TABLET PO SCH (07:15)
[2020-12-28 09:59] VITALS: BP 101/61
[2020-12-28] MEDS: MULTIVITAMINS WITH MINERALS, THERAPEUTIC TABLET PO SCH (11:59)
[2020-12-28] MEDS: METOPROLOL SUCCINATE 25 MG ER TABLET PO SCH (11:59)
[2020-12-28] MEDS: APIXABAN 5 MG TABLET PO SCH ×2 (12:00→17:11)
[2020-12-28 18:56] VITALS: BP 110/78
[2020-12-28] MEDS: OLANZapine 5 MG RAPDIS TABLET PO SCH (20:04)
[2020-12-29] MEDS: LURASIDONE HCL 60 MG TABLET PO SCH (07:04)
[2020-12-29] MEDS: MULTIVITAMINS WITH MINERALS, THERAPEUTIC TABLET PO SCH (08:31)
[2020-12-29] MEDS: METOPROLOL SUCCINATE 25 MG ER TABLET PO SCH (08:32)
[2020-12-29] MEDS: APIXABAN 5 MG TABLET PO SCH ×2 (08:32→16:58)
[2020-12-29 17:15] VITALS: BP 150/79
[2020-12-29] MEDS: OLANZapine 5 MG RAPDIS TABLET PO SCH (20:51)
[2020-12-30 04:22] VITALS: BP 130/76
[2020-12-30] MEDS: LURASIDONE HCL 60 MG TABLET PO SCH (07:03)
[2020-12-30] MEDS: APIXABAN 5 MG TABLET PO SCH ×2 (08:14→16:22)
[2020-12-30] MEDS: MULTIVITAMINS WITH MINERALS, THERAPEUTIC TABLET PO SCH (08:14)
[2020-12-30] MEDS: METOPROLOL SUCCINATE 25 MG ER TABLET PO SCH (08:14)
[2020-12-30 10:09] VITALS: BP 120/62
[2020-12-30 12:00] VITALS: BP 106/56
[2020-12-30] MEDS: OLANZapine 5 MG RAPDIS TABLET PO SCH (20:48)
[2020-12-31] MEDS: LURASIDONE HCL 60 MG TABLET PO SCH (07:13)
[2020-12-31] MEDS: METOPROLOL SUCCINATE 25 MG ER TABLET PO SCH ×2 (08:37→09:00)
[2020-12-31] MEDS: APIXABAN 5 MG TABLET PO SCH ×3 (08:37→17:29)
[2020-12-31] MEDS: MULTIVITAMINS WITH MINERALS, THERAPEUTIC TABLET PO SCH ×2 (08:37→09:00)
[2020-12-31 10:05] VITALS: BP 132/65
[2020-12-31 16:01] VITALS: BP 121/79
[2020-12-31] MEDS: OLANZapine 5 MG RAPDIS TABLET PO SCH (21:23)
[2021-01-01] MEDS: LURASIDONE HCL 60 MG TABLET PO SCH (06:47)
[2021-01-01] MEDS: MULTIVITAMINS WITH MINERALS, THERAPEUTIC TABLET PO SCH (08:08)
[2021-01-01] MEDS: APIXABAN 5 MG TABLET PO SCH ×2 (08:08→16:12)
[2021-01-01] MEDS: METOPROLOL SUCCINATE 25 MG ER TABLET PO SCH (08:09)
[2021-01-01 08:49] VITALS: BP 110/69
[2021-01-01 14:39] LABS: COVID AG,FIA SOURCE NASAL SWAB
[2021-01-01 19:24] VITALS: BP 120/74
[2021-01-01] MEDS: OLANZapine 5 MG RAPDIS TABLET PO SCH (20:03)
[2021-01-02 00:30] VITALS: BP 119/79
[2021-01-02] MEDS: LURASIDONE HCL 60 MG TABLET PO SCH (06:54)
[2021-01-02 08:36] VITALS: BP 125/58
[2021-01-02] MEDS: APIXABAN 5 MG TABLET PO SCH ×2 (10:51→17:29)
[2021-01-02] MEDS: MULTIVITAMINS WITH MINERALS, THERAPEUTIC TABLET PO SCH (10:51)
[2021-01-02] MEDS: METOPROLOL SUCCINATE 25 MG ER TABLET PO SCH (10:51)
[2021-01-02 16:42] VITALS: BP 111/65
[2021-01-02] MEDS: OLANZapine 5 MG RAPDIS TABLET PO SCH (20:12)
[2021-01-03 00:44] VITALS: BP 131/80
[2021-01-03] MEDS: LURASIDONE HCL 60 MG TABLET PO SCH (06:35)
[2021-01-03] MEDS: APIXABAN 5 MG TABLET PO SCH ×2 (08:17→16:38)
[2021-01-03] MEDS: METOPROLOL SUCCINATE 25 MG ER TABLET PO SCH (08:17)
[2021-01-03] MEDS: MULTIVITAMINS WITH MINERALS, THERAPEUTIC TABLET PO SCH (08:17)
[2021-01-03 17:21] VITALS: BP 129/62
[2021-01-03] MEDS: OLANZapine 5 MG RAPDIS TABLET PO SCH (20:40)
[2021-01-04] MEDS: LURASIDONE HCL 60 MG TABLET PO SCH (06:59)
[2021-01-04] MEDS: MULTIVITAMINS WITH MINERALS, THERAPEUTIC TABLET PO SCH (08:38)
[2021-01-04] MEDS: APIXABAN 5 MG TABLET PO SCH ×2 (08:38→16:40)
[2021-01-04] MEDS: METOPROLOL SUCCINATE 25 MG ER TABLET PO SCH (08:38)
[2021-01-04 08:58] VITALS: BP 136/63
[2021-01-04 16:00] VITALS: BP 108/56
[2021-01-04] MEDS: OLANZapine 5 MG RAPDIS TABLET PO SCH (20:30)
[2021-01-05] MEDS: LURASIDONE HCL 60 MG TABLET PO SCH (06:58)
[2021-01-05] MEDS: MULTIVITAMINS WITH MINERALS, THERAPEUTIC TABLET PO SCH (08:00)
[2021-01-05] MEDS: METOPROLOL SUCCINATE 25 MG ER TABLET PO SCH (08:00)
[2021-01-05] MEDS: APIXABAN 5 MG TABLET PO SCH ×2 (08:00→16:22)
[2021-01-05 08:15] VITALS: BP 107/82
[2021-01-05 16:59] VITALS: BP 117/65
[2021-01-05] MEDS: OLANZapine 5 MG RAPDIS TABLET PO SCH (20:31)
[2021-01-06] MEDS: LURASIDONE HCL 60 MG TABLET PO SCH (07:05)
[2021-01-06 08:24] VITALS: BP 125/69
[2021-01-06] MEDS: APIXABAN 5 MG TABLET PO SCH ×2 (09:04→17:16)
[2021-01-06] MEDS: MULTIVITAMINS WITH MINERALS, THERAPEUTIC TABLET PO SCH (09:04)
[2021-01-06] MEDS: METOPROLOL SUCCINATE 25 MG ER TABLET PO SCH (09:05)
[2021-01-06 16:19] VITALS: BP 121/79
[2021-01-06] MEDS: OLANZapine 5 MG RAPDIS TABLET PO SCH (21:01)
[2021-01-07 01:30] VITALS: BP 134/80
[2021-01-07] MEDS: LURASIDONE HCL 60 MG TABLET PO SCH (07:03)
[2021-01-07 07:14] LABS: BASOPHILS % (AUTO) 0.9 % (0.0-2.0); EOSINOPHILS % (AUTO) 1.8 % (1.0-6.0); HEMATOCRIT 39.1 % (36-46); HEMOGLOBIN 13.3 g/dL (12.0-16.0); LYMPHOCYTES # (AUTO) 1.7 K/uL (1.0-4.8); LYMPHOCYTES % (AUTO) 29.3 % (22.0-44.0); MEAN CORPUSCULAR HEMOGLOBIN 30.5 pg (26.0-34.0); MEAN CORPUSCULAR HGB CONC 34.1 G/dL (31.0-37.0); MEAN CORPUSCULAR VOLUME 90 fL (80-100); MONOCYTES # (AUTO) 0.5 K/uL (0.1-1.0); MONOCYTES % (AUTO) 8.6 % (2.0-9.0); NEUTROPHILS # (AUTO) 3.4 K/uL (1.8-7.7); NEUTROPHILS % (AUTO) 59.4 % (40.0-70.0); PLATELET COUNT (AUTO) 185 K/uL (150-450); RED BLOOD CELL COUNT(AUTO) 4.36 MIL/uL (4.00-5.20)
[2021-01-07 08:08] LABS: ALANINE AMINOTRANSFERASE 19 U/L (12-78); ALBUMIN 2.8 g/dL (3.4-5.0); ALKALINE PHOSPHATASE 105 U/L (46-116); ANION GAP 6 mmol/L (8-16); ASPARTATE AMINOTRANSFERASE 6 U/L (15-37); BILIRUBIN,TOTAL 0.4 mg/dL (0.1-1.0); CALCIUM, TOTAL 8.9 mg/dL (8.8-10.5); CARBON DIOXIDE 28 mmol/L (22-29); CHLORIDE 107 mmol/L (98-107); CREATININE 0.74 mg/dL (0.60-1.30); GLOMERULAR FILTR. RATE CALC > 60 mL/min (>60); GLUCOSE,RANDOM 80 mg/dL (70-110); SODIUM SERUM 141 mmol/L (136-145); TOTAL PROTEIN, SERUM 6.6 g/dL (6.4-8.2); UREA NITROGEN, BLOOD 15 mg/dL (7-18)
[2021-01-07 09:38] VITALS: BP 136/68
[2021-01-07] MEDS: APIXABAN 5 MG TABLET PO SCH ×2 (10:42→16:00)
[2021-01-07] MEDS: METOPROLOL SUCCINATE 25 MG ER TABLET PO SCH (10:42)
[2021-01-07] MEDS: MULTIVITAMINS WITH MINERALS, THERAPEUTIC TABLET PO SCH (10:42)
[2021-01-07 18:04] VITALS: BP 142/71
[2021-01-07] MEDS: OLANZapine 5 MG RAPDIS TABLET PO SCH (20:29)
[2021-01-08] MEDS: LURASIDONE HCL 60 MG TABLET PO SCH (06:46)
[2021-01-08] MEDS: APIXABAN 5 MG TABLET PO SCH ×2 (07:58→17:02)
[2021-01-08] MEDS: MULTIVITAMINS WITH MINERALS, THERAPEUTIC TABLET PO SCH (07:58)
[2021-01-08] MEDS: METOPROLOL SUCCINATE 25 MG ER TABLET PO SCH (07:59)
[2021-01-08 08:00] VITALS: BP 110/73
[2021-01-08 17:06] VITALS: BP 104/74
[2021-01-08] MEDS: OLANZapine 5 MG RAPDIS TABLET PO SCH (20:28)
[2021-01-08 21:29] LABS: COVID AG,FIA SOURCE NASAL SWAB
[2021-01-09 05:02] VITALS: BP 136/87
[2021-01-09] MEDS: LURASIDONE HCL 60 MG TABLET PO SCH (06:50)
[2021-01-09] MEDS: METOPROLOL SUCCINATE 25 MG ER TABLET PO SCH (08:13)
[2021-01-09] MEDS: APIXABAN 5 MG TABLET PO SCH ×2 (08:13→16:52)
[2021-01-09] MEDS: MULTIVITAMINS WITH MINERALS, THERAPEUTIC TABLET PO SCH (08:13)
[2021-01-09 08:54] VITALS: BP 98/60
[2021-01-09 16:05] VITALS: BP 108/69
[2021-01-09] MEDS: OLANZapine 5 MG RAPDIS TABLET PO SCH (20:50)
[2021-01-10 01:07] VITALS: BP 111/55
[2021-01-10] MEDS: LURASIDONE HCL 60 MG TABLET PO SCH (06:30)
[2021-01-10] MEDS: MULTIVITAMINS WITH MINERALS, THERAPEUTIC TABLET PO SCH (08:16)
[2021-01-10] MEDS: APIXABAN 5 MG TABLET PO SCH ×2 (08:16→16:39)
[2021-01-10] MEDS: METOPROLOL SUCCINATE 25 MG ER TABLET PO SCH (08:16)
[2021-01-10 08:48] VITALS: BP 117/64
[2021-01-10 16:42] VITALS: BP 114/77
[2021-01-10] MEDS: OLANZapine 5 MG RAPDIS TABLET PO SCH (20:42)
[2021-01-11 00:41] VITALS: BP 121/61
[2021-01-11] MEDS: LURASIDONE HCL 60 MG TABLET PO SCH (06:30)
[2021-01-11] MEDS: METOPROLOL SUCCINATE 25 MG ER TABLET PO SCH (09:57)
[2021-01-11] MEDS: MULTIVITAMINS WITH MINERALS, THERAPEUTIC TABLET PO SCH (09:57)
[2021-01-11] MEDS: APIXABAN 5 MG TABLET PO SCH ×2 (09:58→16:34)
[2021-01-11] MEDS: OLANZapine 5 MG RAPDIS TABLET PO SCH (21:02)
[2021-01-12] MEDS: LURASIDONE HCL 60 MG TABLET PO SCH (06:43)
[2021-01-12] MEDS: MULTIVITAMINS WITH MINERALS, THERAPEUTIC TABLET PO SCH (10:05)
[2021-01-12] MEDS: METOPROLOL SUCCINATE 25 MG ER TABLET PO SCH (10:05)
[2021-01-12] MEDS: APIXABAN 5 MG TABLET PO SCH ×2 (10:05→16:24)
[2021-01-12 13:25] VITALS: BP 148/90
[2021-01-12 18:22] VITALS: BP 132/84
[2021-01-12] MEDS: OLANZapine 5 MG RAPDIS TABLET PO SCH (20:07)
[2021-01-13 02:30] VITALS: BP 136/80
[2021-01-13] MEDS: LURASIDONE HCL 60 MG TABLET PO SCH (06:57)
[2021-01-13 08:59] VITALS: BP 117/69
[2021-01-13] MEDS: METOPROLOL SUCCINATE 25 MG ER TABLET PO SCH (10:29)
[2021-01-13] MEDS: MULTIVITAMINS WITH MINERALS, THERAPEUTIC TABLET PO SCH (10:29)
[2021-01-13] MEDS: APIXABAN 5 MG TABLET PO SCH ×2 (10:29→16:15)
[2021-01-13] MEDS: OLANZapine 5 MG RAPDIS TABLET PO SCH (20:19)
[2021-01-14] MEDS: LURASIDONE HCL 60 MG TABLET PO SCH (06:39)
[2021-01-14 08:51] VITALS: BP 101/58
[2021-01-14] MEDS: MULTIVITAMINS WITH MINERALS, THERAPEUTIC TABLET PO SCH ×2 (09:00→09:14)
[2021-01-14] MEDS: METOPROLOL SUCCINATE 25 MG ER TABLET PO SCH ×2 (09:00→09:14)
[2021-01-14] MEDS: APIXABAN 5 MG TABLET PO SCH ×4 (09:00→16:30)
[2021-01-14 16:55] VITALS: BP 115/80
[2021-01-14] MEDS: OLANZapine 5 MG RAPDIS TABLET PO SCH (20:36)
[2021-01-15 00:44] VITALS: BP 141/65
[2021-01-15] MEDS: LURASIDONE HCL 60 MG TABLET PO SCH (06:33)
[2021-01-15] MEDS: MULTIVITAMINS WITH MINERALS, THERAPEUTIC TABLET PO SCH (08:10)
[2021-01-15] MEDS: METOPROLOL SUCCINATE 25 MG ER TABLET PO SCH (08:11)
[2021-01-15] MEDS: APIXABAN 5 MG TABLET PO SCH ×2 (08:11→16:44)
[2021-01-15 08:54] VITALS: BP 120/74
[2021-01-15 16:53] VITALS: BP 115/68
[2021-01-15] MEDS: OLANZapine 5 MG RAPDIS TABLET PO SCH (20:46)
[2021-01-16 01:37] VITALS: BP 120/65
[2021-01-16] MEDS: LURASIDONE HCL 60 MG TABLET PO SCH (06:33)
[2021-01-16 08:20] VITALS: BP 116/68
[2021-01-16 09:55] LABS: COVID AG,FIA SOURCE NASOPHARYNGEAL
[2021-01-16] MEDS: APIXABAN 5 MG TABLET PO SCH ×2 (10:05→16:37)
[2021-01-16] MEDS: METOPROLOL SUCCINATE 25 MG ER TABLET PO SCH (10:05)
[2021-01-16] MEDS: MULTIVITAMINS WITH MINERALS, THERAPEUTIC TABLET PO SCH (10:05)
[2021-01-16 16:07] VITALS: BP 140/60
[2021-01-16] MEDS: OLANZapine 5 MG RAPDIS TABLET PO SCH (20:24)
[2021-01-17 00:52] VITALS: BP 138/78
[2021-01-17] MEDS: LURASIDONE HCL 60 MG TABLET PO SCH (06:41)
[2021-01-17] MEDS: MULTIVITAMINS WITH MINERALS, THERAPEUTIC TABLET PO SCH (11:27)
[2021-01-17] MEDS: APIXABAN 5 MG TABLET PO SCH ×2 (11:27→16:37)
[2021-01-17] MEDS: METOPROLOL SUCCINATE 25 MG ER TABLET PO SCH (11:27)
[2021-01-17] MEDS: OLANZapine 5 MG RAPDIS TABLET PO SCH (20:41)
[2021-01-18 00:20] VITALS: BP 124/65
[2021-01-18] MEDS: LURASIDONE HCL 60 MG TABLET PO SCH (06:32)
[2021-01-18 08:00] VITALS: BP 126/73
[2021-01-18] MEDS: METOPROLOL SUCCINATE 25 MG ER TABLET PO SCH (08:20)
[2021-01-18] MEDS: MULTIVITAMINS WITH MINERALS, THERAPEUTIC TABLET PO SCH (08:20)
[2021-01-18] MEDS: APIXABAN 5 MG TABLET PO SCH ×2 (08:20→16:27)
[2021-01-18 16:52] VITALS: BP 119/67
[2021-01-18] MEDS: OLANZapine 5 MG RAPDIS TABLET PO SCH (20:48)
[2021-01-19] MEDS: LURASIDONE HCL 60 MG TABLET PO SCH (06:44)
[2021-01-19] MEDS: MULTIVITAMINS WITH MINERALS, THERAPEUTIC TABLET PO SCH (08:54)
[2021-01-19] MEDS: APIXABAN 5 MG TABLET PO SCH ×2 (08:55→16:04)
[2021-01-19] MEDS: METOPROLOL SUCCINATE 25 MG ER TABLET PO SCH (08:55)
[2021-01-19 16:55] VITALS: BP 126/69
[2021-01-19] MEDS: OLANZapine 5 MG RAPDIS TABLET PO SCH (20:31)
[2021-01-20 01:26] VITALS: BP 145/77
[2021-01-20] MEDS: LURASIDONE HCL 60 MG TABLET PO SCH (07:00)
[2021-01-20] MEDS: APIXABAN 5 MG TABLET PO SCH ×2 (10:11→16:46)
[2021-01-20] MEDS: METOPROLOL SUCCINATE 25 MG ER TABLET PO SCH (10:11)
[2021-01-20] MEDS: MULTIVITAMINS WITH MINERALS, THERAPEUTIC TABLET PO SCH (10:11)
[2021-01-20 11:55] VITALS: BP 132/70
[2021-01-20 16:02] VITALS: BP 141/61
[2021-01-20] MEDS: OLANZapine 5 MG RAPDIS TABLET PO SCH (20:54)
[2021-01-21 01:20] VITALS: BP 138/80
[2021-01-21] MEDS: LURASIDONE HCL 60 MG TABLET PO SCH (07:05)
[2021-01-21] MEDS: MULTIVITAMINS WITH MINERALS, THERAPEUTIC TABLET PO SCH (09:00)
[2021-01-21] MEDS: APIXABAN 5 MG TABLET PO SCH ×2 (09:00→16:00)
[2021-01-21] MEDS: METOPROLOL SUCCINATE 25 MG ER TABLET PO SCH (09:00)
[2021-01-21 16:09] VITALS: BP 128/72
[2021-01-21] MEDS: OLANZapine 5 MG RAPDIS TABLET PO SCH (21:12)
[2021-01-22 03:22] VITALS: BP 127/64
[2021-01-22] MEDS: LURASIDONE HCL 60 MG TABLET PO SCH (06:57)
[2021-01-22 08:30] VITALS: BP 130/68
[2021-01-22] MEDS: MULTIVITAMINS WITH MINERALS, THERAPEUTIC TABLET PO SCH (08:41)
[2021-01-22] MEDS: METOPROLOL SUCCINATE 25 MG ER TABLET PO SCH (08:41)
[2021-01-22] MEDS: APIXABAN 5 MG TABLET PO SCH ×2 (08:41→16:46)
[2021-01-22] MEDS: OLANZapine 5 MG RAPDIS TABLET PO SCH (20:50)
[2021-01-23 00:30] VITALS: BP 134/80
[2021-01-23] MEDS: LURASIDONE HCL 60 MG TABLET PO SCH (07:19)
[2021-01-23 08:00] VITALS: BP 92/60
[2021-01-23] MEDS: METOPROLOL SUCCINATE 25 MG ER TABLET PO SCH ×2 (08:41→08:42)
[2021-01-23] MEDS: MULTIVITAMINS WITH MINERALS, THERAPEUTIC TABLET PO SCH ×2 (08:41→09:00)
[2021-01-23] MEDS: APIXABAN 5 MG TABLET PO SCH ×3 (08:42→17:05)
[2021-01-23 09:39] LABS: COVID AG,FIA SOURCE NASAL SWAB
[2021-01-23 16:17] VITALS: BP 125/77
[2021-01-23] MEDS: OLANZapine 5 MG RAPDIS TABLET PO SCH (20:37)
[2021-01-24] MEDS: LURASIDONE HCL 60 MG TABLET PO SCH (08:27)
[2021-01-24] MEDS: METOPROLOL SUCCINATE 25 MG ER TABLET PO SCH (08:27)
[2021-01-24] MEDS: MULTIVITAMINS WITH MINERALS, THERAPEUTIC TABLET PO SCH (08:27)
[2021-01-24] MEDS: APIXABAN 5 MG TABLET PO SCH ×2 (08:28→16:39)
[2021-01-24 08:43] VITALS: BP 131/95
[2021-01-24 16:16] VITALS: BP 135/93
[2021-01-24] MEDS: OLANZapine 5 MG RAPDIS TABLET PO SCH (20:33)
[2021-01-25] MEDS: LURASIDONE HCL 60 MG TABLET PO SCH (07:11)
[2021-01-25] MEDS: MULTIVITAMINS WITH MINERALS, THERAPEUTIC TABLET PO SCH (08:20)
[2021-01-25] MEDS: APIXABAN 5 MG TABLET PO SCH ×2 (08:20→16:08)
[2021-01-25] MEDS: METOPROLOL SUCCINATE 25 MG ER TABLET PO SCH (08:20)
[2021-01-25 09:00] VITALS: BP 121/77
[2021-01-25 16:04] VITALS: BP 133/81
[2021-01-25] MEDS: OLANZapine 5 MG RAPDIS TABLET PO SCH (20:28)
[2021-01-26] MEDS: LURASIDONE HCL 60 MG TABLET PO SCH (06:54)
[2021-01-26 09:00] VITALS: BP 146/96
[2021-01-26] MEDS: APIXABAN 5 MG TABLET PO SCH ×2 (09:06→16:20)
[2021-01-26] MEDS: METOPROLOL SUCCINATE 25 MG ER TABLET PO SCH (09:06)
[2021-01-26] MEDS: MULTIVITAMINS WITH MINERALS, THERAPEUTIC TABLET PO SCH (09:06)
[2021-01-26 16:35] VITALS: BP 125/70
[2021-01-26] MEDS: OLANZapine 5 MG RAPDIS TABLET PO SCH (20:33)
[2021-01-27] MEDS: LURASIDONE HCL 60 MG TABLET PO SCH (07:25)
[2021-01-27] MEDS: MULTIVITAMINS WITH MINERALS, THERAPEUTIC TABLET PO SCH (09:06)
[2021-01-27] MEDS: METOPROLOL SUCCINATE 25 MG ER TABLET PO SCH (09:06)
[2021-01-27] MEDS: APIXABAN 5 MG TABLET PO SCH ×2 (09:07→16:48)
[2021-01-27 16:07] VITALS: BP 124/75
[2021-01-27] MEDS: OLANZapine 5 MG RAPDIS TABLET PO SCH (20:19)
[2021-01-28 02:52] VITALS: BP 145/80
[2021-01-28] MEDS: LURASIDONE HCL 60 MG TABLET PO SCH (07:04)
[2021-01-28 08:39] VITALS: BP 114/74
[2021-01-28] MEDS: MULTIVITAMINS WITH MINERALS, THERAPEUTIC TABLET PO SCH (08:54)
[2021-01-28] MEDS: METOPROLOL SUCCINATE 25 MG ER TABLET PO SCH (08:55)
[2021-01-28] MEDS: APIXABAN 5 MG TABLET PO SCH ×2 (08:55→16:40)
[2021-01-28 16:58] VITALS: BP 110/70
[2021-01-28] MEDS: OLANZapine 5 MG RAPDIS TABLET PO SCH (21:39)
[2021-01-29 02:02] VITALS: BP 141/85
[2021-01-29] MEDS: LURASIDONE HCL 60 MG TABLET PO SCH (06:47)
[2021-01-29] MEDS: MULTIVITAMINS WITH MINERALS, THERAPEUTIC TABLET PO SCH (09:06)
[2021-01-29] MEDS: APIXABAN 5 MG TABLET PO SCH ×2 (09:06→17:16)
[2021-01-29] MEDS: METOPROLOL SUCCINATE 25 MG ER TABLET PO SCH (09:06)
[2021-01-29 10:56] VITALS: BP 108/67
[2021-01-29 16:10] VITALS: BP 136/77
[2021-01-29] MEDS: OLANZapine 5 MG RAPDIS TABLET PO SCH (20:15)
[2021-01-30] MEDS: LURASIDONE HCL 60 MG TABLET PO SCH (06:39)
[2021-01-30] MEDS: APIXABAN 5 MG TABLET PO SCH ×2 (08:48→17:28)
[2021-01-30] MEDS: MULTIVITAMINS WITH MINERALS, THERAPEUTIC TABLET PO SCH (08:48)
[2021-01-30] MEDS: METOPROLOL SUCCINATE 25 MG ER TABLET PO SCH (08:49)
[2021-01-30 09:50] LABS: COVID AG,FIA SOURCE NASOPHARYNGEAL
[2021-01-30 17:20] VITALS: BP 130/79
[2021-01-30] MEDS: OLANZapine 5 MG RAPDIS TABLET PO SCH (21:31)
[2021-01-31] MEDS: LURASIDONE HCL 60 MG TABLET PO SCH (06:44)
[2021-01-31 08:00] VITALS: BP 139/82
[2021-01-31] MEDS: METOPROLOL SUCCINATE 25 MG ER TABLET PO SCH (09:20)
[2021-01-31] MEDS: MULTIVITAMINS WITH MINERALS, THERAPEUTIC TABLET PO SCH (09:20)
[2021-01-31] MEDS: APIXABAN 5 MG TABLET PO SCH ×2 (09:20→16:17)
[2021-01-31 16:01] VITALS: BP 131/77
[2021-01-31] MEDS: OLANZapine 5 MG RAPDIS TABLET PO SCH (20:29)
[2021-02-01] MEDS: LURASIDONE HCL 60 MG TABLET PO SCH (06:48)
[2021-02-01] MEDS: MULTIVITAMINS WITH MINERALS, THERAPEUTIC TABLET PO SCH (08:44)
[2021-02-01] MEDS: APIXABAN 5 MG TABLET PO SCH ×2 (08:44→16:25)
[2021-02-01] MEDS: METOPROLOL SUCCINATE 25 MG ER TABLET PO SCH (08:45)
[2021-02-01] MEDS: OLANZapine 5 MG RAPDIS TABLET PO SCH (20:07)
[2021-02-02] MEDS: MULTIVITAMINS WITH MINERALS, THERAPEUTIC TABLET PO SCH (08:27)
[2021-02-02] MEDS: LURASIDONE HCL 60 MG TABLET PO SCH (08:27)
[2021-02-02] MEDS: APIXABAN 5 MG TABLET PO SCH ×2 (08:27→16:00)
[2021-02-02] MEDS: METOPROLOL SUCCINATE 25 MG ER TABLET PO SCH (08:28)
[2021-02-02 08:52] VITALS: BP 101/60
[2021-02-02 17:00] VITALS: BP 110/72
[2021-02-02] MEDS: OLANZapine 5 MG RAPDIS TABLET PO SCH (20:00)
[2021-02-03] MEDS: LURASIDONE HCL 60 MG TABLET PO SCH (06:55)
[2021-02-03 08:30] VITALS: BP 146/82
[2021-02-03] MEDS: MULTIVITAMINS WITH MINERALS, THERAPEUTIC TABLET PO SCH (09:22)
[2021-02-03] MEDS: APIXABAN 5 MG TABLET PO SCH ×2 (09:22→16:27)
[2021-02-03] MEDS: METOPROLOL SUCCINATE 25 MG ER TABLET PO SCH (09:23)
[2021-02-03 16:00] VITALS: BP 130/71
[2021-02-03] MEDS: OLANZapine 5 MG RAPDIS TABLET PO SCH (20:13)
[2021-02-04] MEDS: LURASIDONE HCL 60 MG TABLET PO SCH (07:01)
[2021-02-04] MEDS: APIXABAN 5 MG TABLET PO SCH ×2 (08:23→16:12)
[2021-02-04] MEDS: METOPROLOL SUCCINATE 25 MG ER TABLET PO SCH (08:24)
[2021-02-04] MEDS: MULTIVITAMINS WITH MINERALS, THERAPEUTIC TABLET PO SCH (08:24)
[2021-02-04 09:48] VITALS: BP 135/76
[2021-02-04] MEDS: OLANZapine 5 MG RAPDIS TABLET PO SCH (20:52)
[2021-02-05] MEDS: LURASIDONE HCL 60 MG TABLET PO SCH (07:12)
[2021-02-05 08:23] VITALS: BP 137/80
[2021-02-05] MEDS: MULTIVITAMINS WITH MINERALS, THERAPEUTIC TABLET PO SCH (09:32)
[2021-02-05] MEDS: APIXABAN 5 MG TABLET PO SCH ×2 (09:32→16:16)
[2021-02-05] MEDS: METOPROLOL SUCCINATE 25 MG ER TABLET PO SCH (09:32)
[2021-02-05] MEDS: OLANZapine 5 MG RAPDIS TABLET PO SCH (20:50)
[2021-02-06 01:00] VITALS: BP 129/78
[2021-02-06] MEDS: LURASIDONE HCL 60 MG TABLET PO SCH (06:51)
[2021-02-06] MEDS: METOPROLOL SUCCINATE 25 MG ER TABLET PO SCH (08:22)
[2021-02-06] MEDS: APIXABAN 5 MG TABLET PO SCH ×2 (08:22→17:14)
[2021-02-06] MEDS: MULTIVITAMINS WITH MINERALS, THERAPEUTIC TABLET PO SCH (08:23)
[2021-02-06 11:24] LABS: COVID AG,FIA SOURCE NASAL SWAB
[2021-02-06] MEDS: OLANZapine 5 MG RAPDIS TABLET PO SCH (20:43)
[2021-02-07] MEDS: LURASIDONE HCL 60 MG TABLET PO SCH (07:20)
[2021-02-07] MEDS: MULTIVITAMINS WITH MINERALS, THERAPEUTIC TABLET PO SCH (09:00)
[2021-02-07] MEDS: APIXABAN 5 MG TABLET PO SCH ×2 (09:00→17:01)
[2021-02-07] MEDS: METOPROLOL SUCCINATE 25 MG ER TABLET PO SCH (09:00)
[2021-02-07 16:14] VITALS: BP 116/73
[2021-02-07] MEDS: OLANZapine 5 MG RAPDIS TABLET PO SCH (20:49)
[2021-02-08] MEDS: LURASIDONE HCL 60 MG TABLET PO SCH (06:31)
[2021-02-08] MEDS: APIXABAN 5 MG TABLET PO SCH ×2 (08:33→16:05)
[2021-02-08] MEDS: MULTIVITAMINS WITH MINERALS, THERAPEUTIC TABLET PO SCH (08:33)
[2021-02-08] MEDS: METOPROLOL SUCCINATE 25 MG ER TABLET PO SCH (08:33)
[2021-02-08 09:02] VITALS: BP 118/70
[2021-02-08 16:11] VITALS: BP 142/75
[2021-02-08] MEDS: OLANZapine 5 MG RAPDIS TABLET PO SCH (20:32)
[2021-02-09] MEDS: LURASIDONE HCL 60 MG TABLET PO SCH (06:32)
[2021-02-09] MEDS: MULTIVITAMINS WITH MINERALS, THERAPEUTIC TABLET PO SCH (09:08)
[2021-02-09] MEDS: METOPROLOL SUCCINATE 25 MG ER TABLET PO SCH (09:09)
[2021-02-09] MEDS: APIXABAN 5 MG TABLET PO SCH ×2 (09:09→16:35)
[2021-02-09 09:25] VITALS: BP 153/78
[2021-02-09] MEDS: OLANZapine 5 MG RAPDIS TABLET PO SCH (20:17)
[2021-02-10] MEDS: LURASIDONE HCL 80 MG TABLET PO SCH (06:58)
[2021-02-10] MEDS: MULTIVITAMINS WITH MINERALS, THERAPEUTIC TABLET PO SCH (09:00)
[2021-02-10] MEDS: APIXABAN 5 MG TABLET PO SCH ×2 (09:00→16:16)
[2021-02-10] MEDS: METOPROLOL SUCCINATE 25 MG ER TABLET PO SCH (09:00)
[2021-02-10 09:11] VITALS: BP 129/67
[2021-02-10] MEDS: OLANZapine 5 MG RAPDIS TABLET PO SCH (20:23)
[2021-02-11] MEDS: LURASIDONE HCL 80 MG TABLET PO SCH (06:56)
[2021-02-11 08:00] VITALS: BP 120/58
[2021-02-11] MEDS: APIXABAN 5 MG TABLET PO SCH ×2 (08:16→16:10)
[2021-02-11] MEDS: MULTIVITAMINS WITH MINERALS, THERAPEUTIC TABLET PO SCH (08:16)
[2021-02-11] MEDS: METOPROLOL SUCCINATE 25 MG ER TABLET PO SCH (08:17)
[2021-02-11] MEDS: OLANZapine 5 MG RAPDIS TABLET PO SCH (20:35)
[2021-02-12] MEDS: LURASIDONE HCL 80 MG TABLET PO SCH (06:32)
[2021-02-12] MEDS: APIXABAN 5 MG TABLET PO SCH ×2 (09:13→17:09)
[2021-02-12] MEDS: MULTIVITAMINS WITH MINERALS, THERAPEUTIC TABLET PO SCH (09:13)
[2021-02-12] MEDS: METOPROLOL SUCCINATE 25 MG ER TABLET PO SCH (09:13)
[2021-02-12 09:44] VITALS: BP 143/79
[2021-02-12 18:43] VITALS: BP 110/58
[2021-02-12] MEDS: OLANZapine 5 MG RAPDIS TABLET PO SCH (20:10)
[2021-02-13] MEDS: LURASIDONE HCL 80 MG TABLET PO SCH (06:19)
[2021-02-13] MEDS: MULTIVITAMINS WITH MINERALS, THERAPEUTIC TABLET PO SCH (08:48)
[2021-02-13] MEDS: METOPROLOL SUCCINATE 25 MG ER TABLET PO SCH (08:49)
[2021-02-13] MEDS: APIXABAN 5 MG TABLET PO SCH ×2 (08:49→16:11)
[2021-02-13 09:10] LABS: COVID AG,FIA SOURCE NASOPHARYNGEAL
[2021-02-13 16:25] VITALS: BP 115/59
[2021-02-13] MEDS: OLANZapine 5 MG RAPDIS TABLET PO SCH (20:17)
[2021-02-14] MEDS: LURASIDONE HCL 80 MG TABLET PO SCH (06:46)
[2021-02-14] MEDS: MULTIVITAMINS WITH MINERALS, THERAPEUTIC TABLET PO SCH (09:11)
[2021-02-14] MEDS: APIXABAN 5 MG TABLET PO SCH ×2 (09:11→16:31)
[2021-02-14] MEDS: METOPROLOL SUCCINATE 25 MG ER TABLET PO SCH (09:12)
[2021-02-14 16:24] VITALS: BP 136/78
[2021-02-14] MEDS: OLANZapine 5 MG RAPDIS TABLET PO SCH (20:34)
[2021-02-15 00:45] VITALS: BP 133/69
[2021-02-15] MEDS: LURASIDONE HCL 80 MG TABLET PO SCH (06:58)
[2021-02-15] MEDS: MULTIVITAMINS WITH MINERALS, THERAPEUTIC TABLET PO SCH ×2 (08:27→09:00)
[2021-02-15] MEDS: APIXABAN 5 MG TABLET PO SCH ×3 (08:27→16:19)
[2021-02-15] MEDS: METOPROLOL SUCCINATE 25 MG ER TABLET PO SCH ×2 (08:27→09:00)
[2021-02-15 16:00] VITALS: BP 140/90
[2021-02-15] MEDS: OLANZapine 5 MG RAPDIS TABLET PO SCH (20:30)
[2021-02-16 02:30] VITALS: BP 128/73
[2021-02-16] MEDS: LURASIDONE HCL 80 MG TABLET PO SCH (07:00)
[2021-02-16] MEDS: METOPROLOL SUCCINATE 25 MG ER TABLET PO SCH (08:49)
[2021-02-16] MEDS: MULTIVITAMINS WITH MINERALS, THERAPEUTIC TABLET PO SCH (08:50)
[2021-02-16] MEDS: APIXABAN 5 MG TABLET PO SCH ×2 (08:50→16:48)
[2021-02-16 09:59] VITALS: BP 121/73
[2021-02-16 18:46] VITALS: BP 129/79
[2021-02-16] MEDS: OLANZapine 5 MG RAPDIS TABLET PO SCH (20:34)
[2021-02-17] MEDS: LURASIDONE HCL 80 MG TABLET PO SCH (06:45)
[2021-02-17 08:55] VITALS: BP 139/87
[2021-02-17] MEDS: APIXABAN 5 MG TABLET PO SCH ×2 (08:56→17:01)
[2021-02-17] MEDS: METOPROLOL SUCCINATE 25 MG ER TABLET PO SCH (08:56)
[2021-02-17] MEDS: MULTIVITAMINS WITH MINERALS, THERAPEUTIC TABLET PO SCH (08:56)
[2021-02-17 17:00] VITALS: BP 135/62
[2021-02-17] MEDS: OLANZapine 5 MG RAPDIS TABLET PO SCH (20:29)
[2021-02-18] MEDS: LURASIDONE HCL 80 MG TABLET PO SCH (06:30)
[2021-02-18] MEDS: MULTIVITAMINS WITH MINERALS, THERAPEUTIC TABLET PO SCH (08:41)
[2021-02-18] MEDS: APIXABAN 5 MG TABLET PO SCH ×2 (08:41→16:44)
[2021-02-18] MEDS: METOPROLOL SUCCINATE 25 MG ER TABLET PO SCH (08:41)
[2021-02-18 08:45] VITALS: BP 113/67
[2021-02-18 17:00] VITALS: BP 148/69
[2021-02-18] MEDS: OLANZapine 5 MG RAPDIS TABLET PO SCH (21:02)
[2021-02-19] MEDS: LURASIDONE HCL 80 MG TABLET PO SCH (06:44)
[2021-02-19 08:15] VITALS: BP 133/76
[2021-02-19] MEDS: APIXABAN 5 MG TABLET PO SCH ×2 (09:26→16:09)
[2021-02-19] MEDS: METOPROLOL SUCCINATE 25 MG ER TABLET PO SCH (09:26)
[2021-02-19] MEDS: MULTIVITAMINS WITH MINERALS, THERAPEUTIC TABLET PO SCH (09:26)
[2021-02-19 17:35] VITALS: BP 133/81
[2021-02-19] MEDS: OLANZapine 5 MG RAPDIS TABLET PO SCH (20:15)
[2021-02-20] MEDS: LURASIDONE HCL 80 MG TABLET PO SCH (06:36)
[2021-02-20] MEDS: METOPROLOL SUCCINATE 25 MG ER TABLET PO SCH (07:57)
[2021-02-20] MEDS: APIXABAN 5 MG TABLET PO SCH ×2 (07:57→16:37)
[2021-02-20] MEDS: MULTIVITAMINS WITH MINERALS, THERAPEUTIC TABLET PO SCH (07:58)
[2021-02-20 09:19] VITALS: BP 129/87
[2021-02-20 17:07] VITALS: BP 120/61
[2021-02-20] MEDS: OLANZapine 5 MG RAPDIS TABLET PO SCH (20:05)
[2021-02-21] MEDS: LURASIDONE HCL 80 MG TABLET PO SCH (06:30)
[2021-02-21 08:35] VITALS: BP 101/53
[2021-02-21] MEDS: MULTIVITAMINS WITH MINERALS, THERAPEUTIC TABLET PO SCH ×2 (08:41→09:00)
[2021-02-21] MEDS: METOPROLOL SUCCINATE 25 MG ER TABLET PO SCH ×2 (08:42→09:00)
[2021-02-21] MEDS: APIXABAN 5 MG TABLET PO SCH ×3 (08:42→16:42)
[2021-02-21 08:52] LABS: COVID AG,FIA SOURCE NASOPHARYNGEAL
[2021-02-21 16:08] VITALS: BP 134/63
[2021-02-21] MEDS: OLANZapine 5 MG RAPDIS TABLET PO SCH (20:24)
[2021-02-22] MEDS: LURASIDONE HCL 80 MG TABLET PO SCH (06:37)
[2021-02-22 09:00] VITALS: BP 131/78
[2021-02-22] MEDS: MULTIVITAMINS WITH MINERALS, THERAPEUTIC TABLET PO SCH (09:26)
[2021-02-22] MEDS: APIXABAN 5 MG TABLET PO SCH ×2 (09:26→16:06)
[2021-02-22] MEDS: METOPROLOL SUCCINATE 25 MG ER TABLET PO SCH (09:29)
[2021-02-22 17:00] VITALS: BP 129/79
[2021-02-22] MEDS: OLANZapine 5 MG RAPDIS TABLET PO SCH (20:24)
[2021-02-23 00:32] VITALS: BP 129/74
[2021-02-23] MEDS: LURASIDONE HCL 80 MG TABLET PO SCH (07:03)
[2021-02-23 09:00] VITALS: BP 151/75
[2021-02-23] MEDS: MULTIVITAMINS WITH MINERALS, THERAPEUTIC TABLET PO SCH (09:55)
[2021-02-23] MEDS: APIXABAN 5 MG TABLET PO SCH ×2 (09:55→16:20)
[2021-02-23] MEDS: METOPROLOL SUCCINATE 25 MG ER TABLET PO SCH (09:56)
[2021-02-23 16:30] VITALS: BP 132/74
[2021-02-23] MEDS: OLANZapine 5 MG RAPDIS TABLET PO SCH (20:01)
[2021-02-24] MEDS: LURASIDONE HCL 80 MG TABLET PO SCH (06:58)
[2021-02-24] MEDS: APIXABAN 5 MG TABLET PO SCH ×2 (08:25→16:22)
[2021-02-24] MEDS: METOPROLOL SUCCINATE 25 MG ER TABLET PO SCH (08:25)
[2021-02-24] MEDS: MULTIVITAMINS WITH MINERALS, THERAPEUTIC TABLET PO SCH (08:25)
[2021-02-24 11:28] VITALS: BP 109/60
[2021-02-24 16:02] VITALS: BP 128/81
[2021-02-25] MEDS: LURASIDONE HCL 80 MG TABLET PO SCH (06:17)
[2021-02-25] MEDS: MULTIVITAMINS WITH MINERALS, THERAPEUTIC TABLET PO SCH (08:16)
[2021-02-25] MEDS: METOPROLOL SUCCINATE 25 MG ER TABLET PO SCH (08:16)
[2021-02-25] MEDS: APIXABAN 5 MG TABLET PO SCH ×2 (08:16→16:29)
[2021-02-25 09:40] VITALS: BP 136/63
[2021-02-25 16:41] VITALS: BP 171/83
[2021-02-25 18:00] VITALS: BP 145/79
[2021-02-26] MEDS: APIXABAN 5 MG TABLET PO SCH ×2 (08:32→16:31)
[2021-02-26] MEDS: MULTIVITAMINS WITH MINERALS, THERAPEUTIC TABLET PO SCH (08:32)
[2021-02-26] MEDS: METOPROLOL SUCCINATE 25 MG ER TABLET PO SCH (08:32)
[2021-02-26 08:59] VITALS: BP 116/69
[2021-02-26 16:37] VITALS: BP 124/74
[2021-02-26] MEDS: LURASIDONE HCL 80 MG TABLET PO SCH (18:43)
[2021-02-27] MEDS: MULTIVITAMINS WITH MINERALS, THERAPEUTIC TABLET PO SCH (09:04)
[2021-02-27] MEDS: APIXABAN 5 MG TABLET PO SCH ×2 (09:04→16:25)
[2021-02-27] MEDS: METOPROLOL SUCCINATE 25 MG ER TABLET PO SCH (09:04)
[2021-02-27 16:17] VITALS: BP 107/61
[2021-02-27] MEDS: LURASIDONE HCL 80 MG TABLET PO SCH (18:02)
[2021-02-28] MEDS: MULTIVITAMINS WITH MINERALS, THERAPEUTIC TABLET PO SCH (08:57)
[2021-02-28] MEDS: APIXABAN 5 MG TABLET PO SCH ×2 (08:58→16:01)
[2021-02-28] MEDS: METOPROLOL SUCCINATE 25 MG ER TABLET PO SCH (08:58)
[2021-02-28 16:09] LABS: COVID AG,FIA SOURCE NASAL SWAB
[2021-02-28 17:02] VITALS: BP 94/58
[2021-02-28] MEDS: LURASIDONE HCL 80 MG TABLET PO SCH (18:41)
[2021-03-01] MEDS: MULTIVITAMINS WITH MINERALS, THERAPEUTIC TABLET PO SCH (08:55)
[2021-03-01] MEDS: APIXABAN 5 MG TABLET PO SCH ×2 (08:55→16:44)
[2021-03-01] MEDS: METOPROLOL SUCCINATE 25 MG ER TABLET PO SCH (08:56)
[2021-03-01 17:00] VITALS: BP 98/63
[2021-03-01] MEDS: LURASIDONE HCL 80 MG TABLET PO SCH (18:08)
[2021-03-02 08:45] VITALS: BP 119/66
[2021-03-02] MEDS: MULTIVITAMINS WITH MINERALS, THERAPEUTIC TABLET PO SCH (09:18)
[2021-03-02] MEDS: APIXABAN 5 MG TABLET PO SCH ×2 (09:18→16:24)
[2021-03-02] MEDS: METOPROLOL SUCCINATE 25 MG ER TABLET PO SCH (09:18)
[2021-03-02 16:31] VITALS: BP 120/69
[2021-03-02] MEDS: LURASIDONE HCL 80 MG TABLET PO SCH (17:54)
[2021-03-03] MEDS: APIXABAN 5 MG TABLET PO SCH ×2 (08:16→16:27)
[2021-03-03] MEDS: MULTIVITAMINS WITH MINERALS, THERAPEUTIC TABLET PO SCH (08:16)
[2021-03-03] MEDS: METOPROLOL SUCCINATE 25 MG ER TABLET PO SCH (08:16)
[2021-03-03] MEDS: LURASIDONE HCL 80 MG TABLET PO SCH (18:00)
[2021-03-04] MEDS: METOPROLOL SUCCINATE 25 MG ER TABLET PO SCH (12:14)
[2021-03-04] MEDS: APIXABAN 5 MG TABLET PO SCH ×2 (12:14→16:03)
[2021-03-04] MEDS: MULTIVITAMINS WITH MINERALS, THERAPEUTIC TABLET PO SCH (12:14)
[2021-03-04] MEDS: LURASIDONE HCL 80 MG TABLET PO SCH (20:01)
[2021-03-04] MEDS: LURASIDONE HCL 20 MG TABLET PO SCH (20:02)
[2021-03-05 08:46] VITALS: BP 124/63
[2021-03-05] MEDS: METOPROLOL SUCCINATE 25 MG ER TABLET PO SCH (09:50)
[2021-03-05] MEDS: APIXABAN 5 MG TABLET PO SCH ×2 (09:50→16:38)
[2021-03-05] MEDS: MULTIVITAMINS WITH MINERALS, THERAPEUTIC TABLET PO SCH (09:50)
[2021-03-05 16:19] VITALS: BP 103/72
[2021-03-05] MEDS: LURASIDONE HCL 80 MG TABLET PO SCH (17:20)
[2021-03-05] MEDS: LURASIDONE HCL 20 MG TABLET PO SCH (18:00)
[2021-03-06] MEDS: APIXABAN 5 MG TABLET PO SCH ×2 (08:16→16:36)
[2021-03-06] MEDS: METOPROLOL SUCCINATE 25 MG ER TABLET PO SCH (08:16)
[2021-03-06] MEDS: MULTIVITAMINS WITH MINERALS, THERAPEUTIC TABLET PO SCH (08:17)
[2021-03-06 08:58] VITALS: BP 100/52
[2021-03-06 16:00] VITALS: BP 115/62
[2021-03-06] MEDS: LURASIDONE HCL 80 MG TABLET PO SCH (17:54)
[2021-03-06] MEDS: LURASIDONE HCL 20 MG TABLET PO SCH (17:54)
[2021-03-07] MEDS: METOPROLOL SUCCINATE 25 MG ER TABLET PO SCH (08:15)
[2021-03-07] MEDS: APIXABAN 5 MG TABLET PO SCH ×2 (08:16→16:41)
[2021-03-07] MEDS: MULTIVITAMINS WITH MINERALS, THERAPEUTIC TABLET PO SCH (08:16)
[2021-03-07 09:17] VITALS: BP 101/51
[2021-03-07 16:00] VITALS: BP 117/62
[2021-03-07] MEDS: LURASIDONE HCL 20 MG TABLET PO SCH (17:39)
[2021-03-07] MEDS: LURASIDONE HCL 80 MG TABLET PO SCH (17:39)
[2021-03-07 22:28] LABS: COVID AG,FIA SOURCE NASAL SWAB
[2021-03-08 03:18] VITALS: BP 114/65
[2021-03-08 08:01] VITALS: BP 151/74
[2021-03-08] MEDS: MULTIVITAMINS WITH MINERALS, THERAPEUTIC TABLET PO SCH (09:34)
[2021-03-08] MEDS: METOPROLOL SUCCINATE 25 MG ER TABLET PO SCH (09:34)
[2021-03-08] MEDS: APIXABAN 5 MG TABLET PO SCH ×2 (09:35→16:47)
[2021-03-08 16:07] VITALS: BP 101/60
[2021-03-08] MEDS: LURASIDONE HCL 20 MG TABLET PO SCH (17:48)
[2021-03-08] MEDS: LURASIDONE HCL 80 MG TABLET PO SCH (17:48)
[2021-03-09 09:00] VITALS: BP 124/74
[2021-03-09] MEDS: APIXABAN 5 MG TABLET PO SCH ×2 (10:03→16:01)
[2021-03-09] MEDS: MULTIVITAMINS WITH MINERALS, THERAPEUTIC TABLET PO SCH (10:03)
[2021-03-09] MEDS: METOPROLOL SUCCINATE 25 MG ER TABLET PO SCH (10:03)
[2021-03-09 16:00] VITALS: BP 127/72
[2021-03-09] MEDS: LURASIDONE HCL 80 MG TABLET PO SCH (17:53)
[2021-03-09] MEDS: LURASIDONE HCL 20 MG TABLET PO SCH (17:53)
[2021-03-10 09:42] VITALS: BP 132/75
[2021-03-10] MEDS: METOPROLOL SUCCINATE 25 MG ER TABLET PO SCH (10:39)
[2021-03-10] MEDS: APIXABAN 5 MG TABLET PO SCH ×2 (10:39→16:32)
[2021-03-10] MEDS: MULTIVITAMINS WITH MINERALS, THERAPEUTIC TABLET PO SCH (10:39)
[2021-03-10] MEDS: LURASIDONE HCL 20 MG TABLET PO SCH (17:48)
[2021-03-10] MEDS: LURASIDONE HCL 80 MG TABLET PO SCH (17:48)
[2021-03-11 03:12] VITALS: BP 135/86
[2021-03-11 08:27] VITALS: BP 134/68
[2021-03-11] MEDS: METOPROLOL SUCCINATE 25 MG ER TABLET PO SCH (08:34)
[2021-03-11] MEDS: MULTIVITAMINS WITH MINERALS, THERAPEUTIC TABLET PO SCH (08:34)
[2021-03-11] MEDS: APIXABAN 5 MG TABLET PO SCH ×2 (08:34→16:26)
[2021-03-11] MEDS: LURASIDONE HCL 80 MG TABLET PO SCH (16:26)
[2021-03-11] MEDS: LURASIDONE HCL 20 MG TABLET PO SCH (16:26)
[2021-03-11 16:35] VITALS: BP 106/79
[2021-03-12] MEDS: APIXABAN 5 MG TABLET PO SCH ×2 (07:56→16:48)
[2021-03-12] MEDS: MULTIVITAMINS WITH MINERALS, THERAPEUTIC TABLET PO SCH (07:56)
[2021-03-12] MEDS: METOPROLOL SUCCINATE 25 MG ER TABLET PO SCH (07:56)
[2021-03-12 09:08] VITALS: BP 106/59
[2021-03-12 16:00] VITALS: BP 112/62
[2021-03-12] MEDS: LURASIDONE HCL 80 MG TABLET PO SCH (17:52)
[2021-03-12] MEDS: LURASIDONE HCL 20 MG TABLET PO SCH (17:52)
[2021-03-13] MEDS: METOPROLOL SUCCINATE 25 MG ER TABLET PO SCH (10:03)
[2021-03-13] MEDS: APIXABAN 5 MG TABLET PO SCH ×2 (10:03→16:16)
[2021-03-13] MEDS: MULTIVITAMINS WITH MINERALS, THERAPEUTIC TABLET PO SCH (10:03)
[2021-03-13 16:07] VITALS: BP 115/65
[2021-03-13] MEDS: LURASIDONE HCL 80 MG TABLET PO SCH (18:00)
[2021-03-13] MEDS: LURASIDONE HCL 20 MG TABLET PO SCH (18:00)
[2021-03-14 08:45] VITALS: BP 128/66
[2021-03-14] MEDS: MULTIVITAMINS WITH MINERALS, THERAPEUTIC TABLET PO SCH (09:09)
[2021-03-14] MEDS: APIXABAN 5 MG TABLET PO SCH ×2 (09:10→16:30)
[2021-03-14] MEDS: METOPROLOL SUCCINATE 25 MG ER TABLET PO SCH (09:10)
[2021-03-14 16:20] VITALS: BP 110/66
[2021-03-14] MEDS: LURASIDONE HCL 20 MG TABLET PO SCH (19:03)
[2021-03-14] MEDS: LURASIDONE HCL 80 MG TABLET PO SCH (19:03)
[2021-03-14 21:34] LABS: COVID AG,FIA SOURCE NASAL SWAB
[2021-03-15] MEDS: APIXABAN 5 MG TABLET PO SCH ×2 (08:54→17:05)
[2021-03-15] MEDS: METOPROLOL SUCCINATE 25 MG ER TABLET PO SCH (08:54)
[2021-03-15] MEDS: MULTIVITAMINS WITH MINERALS, THERAPEUTIC TABLET PO SCH (08:54)
[2021-03-15 16:00] VITALS: BP 132/77
[2021-03-15] MEDS: LURASIDONE HCL 20 MG TABLET PO SCH (17:29)
[2021-03-15] MEDS: LURASIDONE HCL 80 MG TABLET PO SCH (17:30)
[2021-03-16 08:44] VITALS: BP 124/78
[2021-03-16] MEDS: METOPROLOL SUCCINATE 25 MG ER TABLET PO SCH (11:20)
[2021-03-16] MEDS: APIXABAN 5 MG TABLET PO SCH ×2 (11:20→17:42)
[2021-03-16] MEDS: MULTIVITAMINS WITH MINERALS, THERAPEUTIC TABLET PO SCH (11:20)
[2021-03-16] MEDS: LURASIDONE HCL 20 MG TABLET PO SCH (17:42)
[2021-03-16] MEDS: LURASIDONE HCL 80 MG TABLET PO SCH (17:42)
[2021-03-17] MEDS: MULTIVITAMINS WITH MINERALS, THERAPEUTIC TABLET PO SCH (08:17)
[2021-03-17] MEDS: APIXABAN 5 MG TABLET PO SCH ×2 (08:17→17:03)
[2021-03-17] MEDS: METOPROLOL SUCCINATE 25 MG ER TABLET PO SCH (08:18)
[2021-03-17 09:00] VITALS: BP 131/63
[2021-03-17 16:16] VITALS: BP 134/93
[2021-03-17] MEDS: LURASIDONE HCL 20 MG TABLET PO SCH (17:29)
[2021-03-17] MEDS: LURASIDONE HCL 80 MG TABLET PO SCH (17:29)
[2021-03-18] MEDS: MULTIVITAMINS WITH MINERALS, THERAPEUTIC TABLET PO SCH (08:24)
[2021-03-18] MEDS: APIXABAN 5 MG TABLET PO SCH ×2 (08:25→16:26)
[2021-03-18] MEDS: METOPROLOL SUCCINATE 25 MG ER TABLET PO SCH (08:25)
[2021-03-18 09:30] VITALS: BP 122/76
[2021-03-18 16:02] VITALS: BP 137/72
[2021-03-18] MEDS: LURASIDONE HCL 80 MG TABLET PO SCH (18:32)
[2021-03-18] MEDS: LURASIDONE HCL 20 MG TABLET PO SCH (18:32)
[2021-03-19 08:00] VITALS: BP 99/55
[2021-03-19] MEDS: METOPROLOL SUCCINATE 25 MG ER TABLET PO SCH (08:05)
[2021-03-19] MEDS: APIXABAN 5 MG TABLET PO SCH ×2 (08:07→16:25)
[2021-03-19] MEDS: MULTIVITAMINS WITH MINERALS, THERAPEUTIC TABLET PO SCH (08:07)
[2021-03-19 16:07] VITALS: BP 120/65
[2021-03-19] MEDS: LURASIDONE HCL 80 MG TABLET PO SCH (18:00)
[2021-03-19] MEDS: LURASIDONE HCL 20 MG TABLET PO SCH (18:00)
[2021-03-20] MEDS: APIXABAN 5 MG TABLET PO SCH ×2 (08:05→17:04)
[2021-03-20] MEDS: MULTIVITAMINS WITH MINERALS, THERAPEUTIC TABLET PO SCH (08:05)
[2021-03-20] MEDS: METOPROLOL SUCCINATE 25 MG ER TABLET PO SCH (08:07)
[2021-03-20 09:18] VITALS: BP 115/54
[2021-03-20 16:06] VITALS: BP 121/64
[2021-03-20] MEDS: LURASIDONE HCL 20 MG TABLET PO SCH (17:04)
[2021-03-20] MEDS: LURASIDONE HCL 80 MG TABLET PO SCH (17:04)
[2021-03-21] MEDS: MULTIVITAMINS WITH MINERALS, THERAPEUTIC TABLET PO SCH (08:20)
[2021-03-21] MEDS: METOPROLOL SUCCINATE 25 MG ER TABLET PO SCH ×2 (08:20→08:21)
[2021-03-21] MEDS: APIXABAN 5 MG TABLET PO SCH ×2 (08:20→16:48)
[2021-03-21 09:55] VITALS: BP 100/56
[2021-03-21 10:47] LABS: COVID AG,FIA SOURCE NASOPHARYNGEAL
[2021-03-21 16:04] VITALS: BP 132/81
[2021-03-21] MEDS: LURASIDONE HCL 20 MG TABLET PO SCH (16:47)
[2021-03-21] MEDS: LURASIDONE HCL 80 MG TABLET PO SCH (16:47)
[2021-03-22 08:18] VITALS: BP 126/73
[2021-03-22] MEDS: APIXABAN 5 MG TABLET PO SCH ×2 (09:20→16:54)
[2021-03-22] MEDS: MULTIVITAMINS WITH MINERALS, THERAPEUTIC TABLET PO SCH (09:20)
[2021-03-22] MEDS: METOPROLOL SUCCINATE 25 MG ER TABLET PO SCH (09:20)
[2021-03-22 16:01] VITALS: BP 112/62
[2021-03-22] MEDS: LURASIDONE HCL 80 MG TABLET PO SCH (18:00)
[2021-03-22] MEDS: LURASIDONE HCL 20 MG TABLET PO SCH (18:00)
[2021-03-23 02:00] VITALS: BP 106/77
[2021-03-23] MEDS: APIXABAN 5 MG TABLET PO SCH ×2 (08:10→16:58)
[2021-03-23] MEDS: MULTIVITAMINS WITH MINERALS, THERAPEUTIC TABLET PO SCH (08:10)
[2021-03-23] MEDS: METOPROLOL SUCCINATE 25 MG ER TABLET PO SCH (08:10)
[2021-03-23 08:24] VITALS: BP 143/80
[2021-03-23 16:13] VITALS: BP 124/64
[2021-03-23] MEDS: LURASIDONE HCL 60 MG TABLET PO SCH (16:58)
[2021-03-24] MEDS: METOPROLOL SUCCINATE 25 MG ER TABLET PO SCH (09:00)
[2021-03-24] MEDS: APIXABAN 5 MG TABLET PO SCH ×2 (09:00→16:37)
[2021-03-24] MEDS: MULTIVITAMINS WITH MINERALS, THERAPEUTIC TABLET PO SCH (09:00)
[2021-03-24 09:29] VITALS: BP 143/78
[2021-03-24 16:06] VITALS: BP 131/82
[2021-03-24] MEDS: LURASIDONE HCL 60 MG TABLET PO SCH (16:37)
[2021-03-25 08:01] VITALS: BP 143/64
[2021-03-25] MEDS: APIXABAN 5 MG TABLET PO SCH ×2 (08:12→17:30)
[2021-03-25] MEDS: MULTIVITAMINS WITH MINERALS, THERAPEUTIC TABLET PO SCH (08:12)
[2021-03-25] MEDS: METOPROLOL SUCCINATE 25 MG ER TABLET PO SCH (08:12)
[2021-03-25] MEDS: MAGNESIUM HYDROXIDE SUSPENSION 30 ML UDCUP PO PRN (09:39)
[2021-03-25 17:09] VITALS: BP 131/80
[2021-03-25] MEDS: LURASIDONE HCL 60 MG TABLET PO SCH (17:30)
[2021-03-26] MEDS: METOPROLOL SUCCINATE 25 MG ER TABLET PO SCH (08:20)
[2021-03-26] MEDS: APIXABAN 5 MG TABLET PO SCH ×2 (08:20→17:11)
[2021-03-26] MEDS: MULTIVITAMINS WITH MINERALS, THERAPEUTIC TABLET PO SCH (08:22)
[2021-03-26 09:30] VITALS: BP 134/74
[2021-03-26 16:11] VITALS: BP 157/57
[2021-03-26] MEDS: LURASIDONE HCL 60 MG TABLET PO SCH (17:11)
[2021-03-27] MEDS: METOPROLOL SUCCINATE 25 MG ER TABLET PO SCH (09:43)
[2021-03-27] MEDS: APIXABAN 5 MG TABLET PO SCH ×2 (09:43→16:24)
[2021-03-27] MEDS: MULTIVITAMINS WITH MINERALS, THERAPEUTIC TABLET PO SCH (09:43)
[2021-03-27 09:55] VITALS: BP 121/69
[2021-03-27] MEDS: LURASIDONE HCL 60 MG TABLET PO SCH (16:37)
[2021-03-28 04:01] VITALS: BP 125/70
[2021-03-28 08:15] VITALS: BP 111/74
[2021-03-28] MEDS: MULTIVITAMINS WITH MINERALS, THERAPEUTIC TABLET PO SCH (08:54)
[2021-03-28] MEDS: APIXABAN 5 MG TABLET PO SCH ×2 (08:54→16:01)
[2021-03-28] MEDS: METOPROLOL SUCCINATE 25 MG ER TABLET PO SCH (08:55)
[2021-03-28 15:12] LABS: COVID AG,FIA SOURCE NASOPHARYNGEAL
[2021-03-28 16:00] VITALS: BP 118/78
[2021-03-28] MEDS: LURASIDONE HCL 60 MG TABLET PO SCH (16:01)
[2021-03-29] MEDS: METOPROLOL SUCCINATE 25 MG ER TABLET PO SCH (08:32)
[2021-03-29] MEDS: APIXABAN 5 MG TABLET PO SCH ×2 (08:32→16:38)
[2021-03-29] MEDS: MULTIVITAMINS WITH MINERALS, THERAPEUTIC TABLET PO SCH (08:32)
[2021-03-29 13:25] VITALS: BP 140/71
[2021-03-29 16:50] VITALS: BP 140/83
[2021-03-29] MEDS: LURASIDONE HCL 60 MG TABLET PO SCH (17:48)
[2021-03-30] MEDS: METOPROLOL SUCCINATE 25 MG ER TABLET PO SCH (08:09)
[2021-03-30] MEDS: MULTIVITAMINS WITH MINERALS, THERAPEUTIC TABLET PO SCH (08:09)
[2021-03-30] MEDS: APIXABAN 5 MG TABLET PO SCH ×2 (08:09→17:20)
[2021-03-30 08:37] VITALS: BP 103/59
[2021-03-30 16:29] VITALS: BP 105/56
[2021-03-30] MEDS: LURASIDONE HCL 60 MG TABLET PO SCH (17:20)
[2021-03-31] MEDS: APIXABAN 5 MG TABLET PO SCH ×2 (08:50→17:04)
[2021-03-31] MEDS: MULTIVITAMINS WITH MINERALS, THERAPEUTIC TABLET PO SCH (08:50)
[2021-03-31] MEDS: METOPROLOL SUCCINATE 25 MG ER TABLET PO SCH (08:50)
[2021-03-31 09:00] VITALS: BP 111/67
[2021-03-31 16:55] VITALS: BP 115/72
[2021-03-31] MEDS: LURASIDONE HCL 60 MG TABLET PO SCH (17:04)
[2021-04-01] MEDS: APIXABAN 5 MG TABLET PO SCH ×2 (08:19→16:47)
[2021-04-01] MEDS: MULTIVITAMINS WITH MINERALS, THERAPEUTIC TABLET PO SCH (08:19)
[2021-04-01] MEDS: METOPROLOL SUCCINATE 25 MG ER TABLET PO SCH (08:20)
[2021-04-01 09:00] VITALS: BP 84/52
[2021-04-01 16:29] VITALS: BP 110/75
[2021-04-01] MEDS: LURASIDONE HCL 60 MG TABLET PO SCH (16:47)
[2021-04-02] VITALS: BP 125/70
[2021-04-02] MEDS: METOPROLOL SUCCINATE 25 MG ER TABLET PO SCH (08:43)
[2021-04-02] MEDS: APIXABAN 5 MG TABLET PO SCH ×2 (08:43→17:11)
[2021-04-02] MEDS: MULTIVITAMINS WITH MINERALS, THERAPEUTIC TABLET PO SCH (08:43)
[2021-04-02 16:03] VITALS: BP 143/61
[2021-04-02] MEDS: LURASIDONE HCL 60 MG TABLET PO SCH (17:11)
[2021-04-03] MEDS: MULTIVITAMINS WITH MINERALS, THERAPEUTIC TABLET PO SCH (08:20)
[2021-04-03] MEDS: APIXABAN 5 MG TABLET PO SCH ×2 (08:21→17:35)
[2021-04-03] MEDS: METOPROLOL SUCCINATE 25 MG ER TABLET PO SCH (08:21)
[2021-04-03 08:45] VITALS: BP 128/76
[2021-04-03 16:07] VITALS: BP 124/78
[2021-04-03] MEDS: LURASIDONE HCL 60 MG TABLET PO SCH (17:35)
[2021-04-04 00:35] VITALS: BP 132/82
[2021-04-04] MEDS: MULTIVITAMINS WITH MINERALS, THERAPEUTIC TABLET PO SCH (08:42)
[2021-04-04] MEDS: METOPROLOL SUCCINATE 25 MG ER TABLET PO SCH (08:42)
[2021-04-04] MEDS: APIXABAN 5 MG TABLET PO SCH ×2 (08:43→17:14)
[2021-04-04 09:35] VITALS: BP 118/74
[2021-04-04 16:11] VITALS: BP 131/83
[2021-04-04] MEDS: LURASIDONE HCL 60 MG TABLET PO SCH (17:14)
[2021-04-04 23:04] LABS: COVID AG,FIA SOURCE NASAL SWAB
[2021-04-05 01:19] VITALS: BP 145/80
[2021-04-05] MEDS: MULTIVITAMINS WITH MINERALS, THERAPEUTIC TABLET PO SCH (08:20)
[2021-04-05] MEDS: METOPROLOL SUCCINATE 25 MG ER TABLET PO SCH (08:21)
[2021-04-05] MEDS: APIXABAN 5 MG TABLET PO SCH ×2 (08:21→16:00)
[2021-04-05 09:00] VITALS: BP 93/58
[2021-04-05] MEDS: LURASIDONE HCL 60 MG TABLET PO SCH (16:00)
[2021-04-05 18:35] VITALS: BP 130/60
[2021-04-06 01:00] VITALS: BP 131/73
[2021-04-06] MEDS: MULTIVITAMINS WITH MINERALS, THERAPEUTIC TABLET PO SCH (08:54)
[2021-04-06] MEDS: METOPROLOL SUCCINATE 25 MG ER TABLET PO SCH (08:55)
[2021-04-06] MEDS: APIXABAN 5 MG TABLET PO SCH ×2 (08:55→16:45)
[2021-04-06 09:33] VITALS: BP 132/70
[2021-04-06 16:35] VITALS: BP 132/74
[2021-04-06] MEDS: LURASIDONE HCL 60 MG TABLET PO SCH (16:45)
[2021-04-07 01:00] VITALS: BP 130/73
[2021-04-07 08:00] VITALS: BP 94/54
[2021-04-07] MEDS: METOPROLOL SUCCINATE 25 MG ER TABLET PO SCH (09:00)
[2021-04-07] MEDS: APIXABAN 5 MG TABLET PO SCH ×2 (09:14→17:32)
[2021-04-07] MEDS: MULTIVITAMINS WITH MINERALS, THERAPEUTIC TABLET PO SCH (09:15)
[2021-04-07] MEDS: LURASIDONE HCL 60 MG TABLET PO SCH (17:32)
[2021-04-08 03:51] VITALS: BP 133/71
[2021-04-08 08:00] VITALS: BP 120/58
[2021-04-08] MEDS: MULTIVITAMINS WITH MINERALS, THERAPEUTIC TABLET PO SCH (09:07)
[2021-04-08] MEDS: APIXABAN 5 MG TABLET PO SCH ×2 (09:07→17:13)
[2021-04-08] MEDS: METOPROLOL SUCCINATE 25 MG ER TABLET PO SCH (09:08)
[2021-04-08 16:02] VITALS: BP 110/69
[2021-04-08] MEDS: LURASIDONE HCL 60 MG TABLET PO SCH (17:13)
[2021-04-09 02:47] VITALS: BP 134/84
[2021-04-09] MEDS: APIXABAN 5 MG TABLET PO SCH ×2 (08:12→16:00)
[2021-04-09] MEDS: METOPROLOL SUCCINATE 25 MG ER TABLET PO SCH (08:12)
[2021-04-09] MEDS: MULTIVITAMINS WITH MINERALS, THERAPEUTIC TABLET PO SCH (08:12)
[2021-04-09 08:51] VITALS: BP 131/75
[2021-04-09] MEDS: LURASIDONE HCL 60 MG TABLET PO SCH (16:00)
[2021-04-10] MEDS: MULTIVITAMINS WITH MINERALS, THERAPEUTIC TABLET PO SCH (08:17)
[2021-04-10] MEDS: APIXABAN 5 MG TABLET PO SCH ×2 (08:17→17:24)
[2021-04-10] MEDS: METOPROLOL SUCCINATE 25 MG ER TABLET PO SCH (08:17)
[2021-04-10 09:33] VITALS: BP 95/56
[2021-04-10 16:03] VITALS: BP 99/58
[2021-04-10] MEDS: LURASIDONE HCL 60 MG TABLET PO SCH (17:25)
[2021-04-11] MEDS: APIXABAN 5 MG TABLET PO SCH ×2 (08:32→16:33)
[2021-04-11] MEDS: MULTIVITAMINS WITH MINERALS, THERAPEUTIC TABLET PO SCH (08:32)
[2021-04-11] MEDS: METOPROLOL SUCCINATE 25 MG ER TABLET PO SCH (08:32)
[2021-04-11 09:55] VITALS: BP 111/67
[2021-04-11 13:59] LABS: COVID AG,FIA SOURCE NASOPHARYNGEAL
[2021-04-11 16:00] VITALS: BP 115/62
[2021-04-11] MEDS: LURASIDONE HCL 60 MG TABLET PO SCH (16:33)
[2021-04-12 00:43] VITALS: BP 143/76
[2021-04-12] MEDS: APIXABAN 5 MG TABLET PO SCH ×2 (08:54→17:01)
[2021-04-12] MEDS: MULTIVITAMINS WITH MINERALS, THERAPEUTIC TABLET PO SCH (08:54)
[2021-04-12] MEDS: METOPROLOL SUCCINATE 25 MG ER TABLET PO SCH (08:54)
[2021-04-12 12:56] VITALS: BP 113/67
[2021-04-12 16:00] VITALS: BP 128/75
[2021-04-12] MEDS: LURASIDONE HCL 60 MG TABLET PO SCH (17:01)
[2021-04-13] MEDS: MAGNESIUM HYDROXIDE SUSPENSION 30 ML UDCUP PO PRN (02:17)
[2021-04-13 03:00] VITALS: BP 115/72
[2021-04-13] MEDS: APIXABAN 5 MG TABLET PO SCH ×2 (08:51→16:53)
[2021-04-13] MEDS: MULTIVITAMINS WITH MINERALS, THERAPEUTIC TABLET PO SCH (08:51)
[2021-04-13] MEDS: METOPROLOL SUCCINATE 25 MG ER TABLET PO SCH (08:53)
[2021-04-13 10:14] VITALS: BP 127/66
[2021-04-13 16:48] VITALS: BP 127/62
[2021-04-13] MEDS: LURASIDONE HCL 60 MG TABLET PO SCH (16:53)
[2021-04-14 00:49] VITALS: BP 106/73
[2021-04-14] MEDS: METOPROLOL SUCCINATE 25 MG ER TABLET PO SCH (08:56)
[2021-04-14] MEDS: APIXABAN 5 MG TABLET PO SCH ×2 (08:57→16:27)
[2021-04-14] MEDS: MULTIVITAMINS WITH MINERALS, THERAPEUTIC TABLET PO SCH (08:57)
[2021-04-14 09:00] VITALS: BP 114/66
[2021-04-14 17:00] VITALS: BP 128/72
[2021-04-14] MEDS: LURASIDONE HCL 60 MG TABLET PO SCH (17:30)
[2021-04-14 23:47] LABS: COVID AG,FIA SOURCE NASAL SWAB
[2021-04-15 01:01] VITALS: BP 131/68
[2021-04-15] MEDS: MULTIVITAMINS WITH MINERALS, THERAPEUTIC TABLET PO SCH (08:38)
[2021-04-15] MEDS: METOPROLOL SUCCINATE 25 MG ER TABLET PO SCH (08:38)
[2021-04-15] MEDS: APIXABAN 5 MG TABLET PO SCH ×2 (08:38→16:47)
[2021-04-15 09:00] VITALS: BP 107/64
[2021-04-15] MEDS: LURASIDONE HCL 60 MG TABLET PO SCH (16:47)
[2021-04-15 17:00] VITALS: BP 101/70
[2021-04-16] VITALS (9 sets, daily range): BP systolic 108–159; BP diastolic 66–97
[2021-04-16] MEDS: APIXABAN 5 MG TABLET PO SCH ×2 (10:27→16:45)
[2021-04-16] MEDS: METOPROLOL SUCCINATE 25 MG ER TABLET PO SCH (10:27)
[2021-04-16] MEDS: MULTIVITAMINS WITH MINERALS, THERAPEUTIC TABLET PO SCH (10:27)
[2021-04-16] MEDS: LURASIDONE HCL 60 MG TABLET PO SCH (16:45)
[2021-04-17 02:15] VITALS: BP 126/85
[2021-04-17 08:00] VITALS: BP 128/68
[2021-04-17] MEDS: APIXABAN 5 MG TABLET PO SCH ×2 (08:00→16:38)
[2021-04-17] MEDS: MULTIVITAMINS WITH MINERALS, THERAPEUTIC TABLET PO SCH (08:00)
[2021-04-17] MEDS: METOPROLOL SUCCINATE 25 MG ER TABLET PO SCH (08:01)
[2021-04-17 16:15] VITALS: BP 123/60
[2021-04-17] MEDS: LURASIDONE HCL 60 MG TABLET PO SCH (16:38)
[2021-04-18 04:30] VITALS: BP 131/87
[2021-04-18] MEDS: METOPROLOL SUCCINATE 25 MG ER TABLET PO SCH (08:43)
[2021-04-18] MEDS: MULTIVITAMINS WITH MINERALS, THERAPEUTIC TABLET PO SCH (08:43)
[2021-04-18] MEDS: APIXABAN 5 MG TABLET PO SCH ×2 (08:43→16:49)
[2021-04-18 09:48] VITALS: BP 130/60
[2021-04-18 16:00] VITALS: BP 128/58
[2021-04-18] MEDS: LURASIDONE HCL 60 MG TABLET PO SCH (16:49)
[2021-04-19 02:30] VITALS: BP 147/79
[2021-04-19] MEDS: APIXABAN 5 MG TABLET PO SCH ×2 (08:43→17:03)
[2021-04-19] MEDS: MULTIVITAMINS WITH MINERALS, THERAPEUTIC TABLET PO SCH (08:44)
[2021-04-19] MEDS: METOPROLOL SUCCINATE 25 MG ER TABLET PO SCH (08:44)
[2021-04-19 09:20] VITALS: BP 136/78
[2021-04-19 16:48] VITALS: BP 132/78
[2021-04-19] MEDS: LURASIDONE HCL 60 MG TABLET PO SCH (19:09)
[2021-04-20 02:00] VITALS: BP 129/81
[2021-04-20 08:00] VITALS: BP 116/53
[2021-04-20] MEDS: METOPROLOL SUCCINATE 25 MG ER TABLET PO SCH (08:39)
[2021-04-20] MEDS: APIXABAN 5 MG TABLET PO SCH ×2 (08:39→17:07)
[2021-04-20] MEDS: MULTIVITAMINS WITH MINERALS, THERAPEUTIC TABLET PO SCH (08:40)
[2021-04-20] MEDS: LURASIDONE HCL 60 MG TABLET PO SCH (17:27)
[2021-04-20 17:51] VITALS: BP 125/78
[2021-04-21] MEDS: METOPROLOL SUCCINATE 25 MG ER TABLET PO SCH (08:17)
[2021-04-21] MEDS: APIXABAN 5 MG TABLET PO SCH ×2 (08:17→16:17)
[2021-04-21] MEDS: MULTIVITAMINS WITH MINERALS, THERAPEUTIC TABLET PO SCH (08:17)
[2021-04-21 09:24] VITALS: BP 129/60
[2021-04-21 16:17] VITALS: BP 128/78
[2021-04-21] MEDS: LURASIDONE HCL 60 MG TABLET PO SCH (17:16)
[2021-04-22] MEDS: MULTIVITAMINS WITH MINERALS, THERAPEUTIC TABLET PO SCH (08:27)
[2021-04-22] MEDS: APIXABAN 5 MG TABLET PO SCH ×2 (08:28→16:54)
[2021-04-22] MEDS: METOPROLOL SUCCINATE 25 MG ER TABLET PO SCH (08:28)
[2021-04-22 08:56] VITALS: BP 138/66
[2021-04-22 10:47] LABS: COVID AG,FIA SOURCE NASOPHARYNGEAL
[2021-04-22] MEDS: LURASIDONE HCL 60 MG TABLET PO SCH (16:55)
[2021-04-23 00:56] VITALS: BP 119/71
[2021-04-23] MEDS: MULTIVITAMINS WITH MINERALS, THERAPEUTIC TABLET PO SCH (09:00)
[2021-04-23] MEDS: APIXABAN 5 MG TABLET PO SCH ×2 (09:01→17:09)
[2021-04-23] MEDS: METOPROLOL SUCCINATE 25 MG ER TABLET PO SCH (09:01)
[2021-04-23 09:15] VITALS: BP 120/73
[2021-04-23] MEDS: LURASIDONE HCL 60 MG TABLET PO SCH (17:09)
[2021-04-23 18:22] VITALS: BP 125/70
[2021-04-24 08:40] VITALS: BP 110/53
[2021-04-24] MEDS: METOPROLOL SUCCINATE 25 MG ER TABLET PO SCH (08:41)
[2021-04-24] MEDS: MULTIVITAMINS WITH MINERALS, THERAPEUTIC TABLET PO SCH (08:41)
[2021-04-24] MEDS: APIXABAN 5 MG TABLET PO SCH ×2 (08:41→16:37)
[2021-04-24 16:14] VITALS: BP 131/78
[2021-04-24] MEDS: LURASIDONE HCL 60 MG TABLET PO SCH (17:35)
[2021-04-25 03:22] VITALS: BP 133/74
[2021-04-25] MEDS: APIXABAN 5 MG TABLET PO SCH ×2 (08:07→16:26)
[2021-04-25] MEDS: MULTIVITAMINS WITH MINERALS, THERAPEUTIC TABLET PO SCH (08:07)
[2021-04-25] MEDS: METOPROLOL SUCCINATE 25 MG ER TABLET PO SCH (08:34)
[2021-04-25 08:55] VITALS: BP 84/59
[2021-04-25 16:22] VITALS: BP 102/77
[2021-04-25] MEDS: LURASIDONE HCL 60 MG TABLET PO SCH (16:25)
[2021-04-26] MEDS: MULTIVITAMINS WITH MINERALS, THERAPEUTIC TABLET PO SCH (08:00)
[2021-04-26] MEDS: METOPROLOL SUCCINATE 25 MG ER TABLET PO SCH (08:01)
[2021-04-26] MEDS: APIXABAN 5 MG TABLET PO SCH ×2 (08:01→17:10)
[2021-04-26 09:30] VITALS: BP 100/55
[2021-04-26 16:29] VITALS: BP 130/52
[2021-04-26] MEDS: LURASIDONE HCL 60 MG TABLET PO SCH (17:09)
[2021-04-27 07:40] LABS: COVID AG,FIA SOURCE NASAL SWAB
[2021-04-27 08:00] VITALS: BP 124/64
[2021-04-27] MEDS: APIXABAN 5 MG TABLET PO SCH ×2 (08:28→17:02)
[2021-04-27] MEDS: MULTIVITAMINS WITH MINERALS, THERAPEUTIC TABLET PO SCH (08:29)
[2021-04-27] MEDS: METOPROLOL SUCCINATE 25 MG ER TABLET PO SCH (08:29)
[2021-04-27 16:21] VITALS: BP 132/77
[2021-04-27] MEDS: LURASIDONE HCL 60 MG TABLET PO SCH (17:02)
[2021-04-28 04:00] VITALS: BP 148/73
[2021-04-28 08:10] VITALS: BP 138/63
[2021-04-28] MEDS: METOPROLOL SUCCINATE 25 MG ER TABLET PO SCH (08:24)
[2021-04-28] MEDS: MULTIVITAMINS WITH MINERALS, THERAPEUTIC TABLET PO SCH (08:24)
[2021-04-28] MEDS: APIXABAN 5 MG TABLET PO SCH ×2 (08:24→17:26)
[2021-04-28 09:16] LABS: COVID AG,FIA SOURCE NASOPHARYNGEAL
[2021-04-28 16:20] VITALS: BP 109/59
[2021-04-28] MEDS: LURASIDONE HCL 60 MG TABLET PO SCH (17:25)
[2021-04-29 09:18] VITALS: BP 157/50
[2021-04-29] MEDS: APIXABAN 5 MG TABLET PO SCH ×2 (09:31→17:14)
[2021-04-29] MEDS: MULTIVITAMINS WITH MINERALS, THERAPEUTIC TABLET PO SCH (09:31)
[2021-04-29] MEDS: METOPROLOL SUCCINATE 25 MG ER TABLET PO SCH (09:31)
[2021-04-29] MEDS: LURASIDONE HCL 60 MG TABLET PO SCH (17:14)
[2021-04-30 08:05] VITALS: BP_SYST 95; BP_DIAS 50; BP_DIAS 68
[2021-04-30] MEDS: METOPROLOL SUCCINATE 25 MG ER TABLET PO SCH (09:00)
[2021-04-30] MEDS: MULTIVITAMINS WITH MINERALS, THERAPEUTIC TABLET PO SCH (09:06)
[2021-04-30] MEDS: APIXABAN 5 MG TABLET PO SCH ×2 (09:06→16:24)
[2021-04-30 16:56] VITALS: BP 128/76
[2021-04-30] MEDS: LURASIDONE HCL 60 MG TABLET PO SCH (17:29)
[2021-05-01] MEDS: MULTIVITAMINS WITH MINERALS, THERAPEUTIC TABLET PO SCH (08:10)
[2021-05-01] MEDS: APIXABAN 5 MG TABLET PO SCH ×2 (08:11→17:13)
[2021-05-01] MEDS: METOPROLOL SUCCINATE 25 MG ER TABLET PO SCH (08:11)
[2021-05-01 09:36] VITALS: BP 128/79
[2021-05-01 16:18] VITALS: BP 131/72
[2021-05-01] MEDS: LURASIDONE HCL 60 MG TABLET PO SCH (17:13)
[2021-05-02 08:10] VITALS: BP 122/61
[2021-05-02] MEDS: MULTIVITAMINS WITH MINERALS, THERAPEUTIC TABLET PO SCH (08:30)
[2021-05-02] MEDS: METOPROLOL SUCCINATE 25 MG ER TABLET PO SCH (08:30)
[2021-05-02] MEDS: APIXABAN 5 MG TABLET PO SCH ×2 (08:30→17:26)
[2021-05-02 12:49] VITALS: BP 127/61
[2021-05-02 16:21] VITALS: BP 132/65
[2021-05-02] MEDS: LURASIDONE HCL 60 MG TABLET PO SCH (17:26)
[2021-05-03] MEDS: MULTIVITAMINS WITH MINERALS, THERAPEUTIC TABLET PO SCH (08:35)
[2021-05-03] MEDS: APIXABAN 5 MG TABLET PO SCH ×2 (08:36→17:11)
[2021-05-03] MEDS: METOPROLOL SUCCINATE 25 MG ER TABLET PO SCH (08:36)
[2021-05-03 09:30] VITALS: BP 98/47
[2021-05-03] MEDS: LURASIDONE HCL 60 MG TABLET PO SCH (17:11)
[2021-05-03 17:25] VITALS: BP 124/70
[2021-05-04] MEDS: APIXABAN 5 MG TABLET PO SCH ×2 (08:36→16:59)
[2021-05-04] MEDS: MULTIVITAMINS WITH MINERALS, THERAPEUTIC TABLET PO SCH (08:36)
[2021-05-04] MEDS: METOPROLOL SUCCINATE 25 MG ER TABLET PO SCH (08:36)
[2021-05-04 09:30] VITALS: BP 106/55
[2021-05-04 16:28] VITALS: BP 131/83
[2021-05-04] MEDS: LURASIDONE HCL 60 MG TABLET PO SCH (16:59)
[2021-05-05] MEDS: MULTIVITAMINS WITH MINERALS, THERAPEUTIC TABLET PO SCH (08:28)
[2021-05-05] MEDS: APIXABAN 5 MG TABLET PO SCH ×2 (08:28→16:44)
[2021-05-05] MEDS: METOPROLOL SUCCINATE 25 MG ER TABLET PO SCH (08:29)
[2021-05-05 08:46] VITALS: BP 93/63
[2021-05-05 12:56] LABS: COVID AG,FIA SOURCE NASAL SWAB
[2021-05-05 17:00] VITALS: BP 144/52
[2021-05-05] MEDS: LURASIDONE HCL 60 MG TABLET PO SCH (17:59)
[2021-05-06 08:00] VITALS: BP 119/60
[2021-05-06] MEDS: APIXABAN 5 MG TABLET PO SCH ×2 (08:19→16:32)
[2021-05-06] MEDS: MULTIVITAMINS WITH MINERALS, THERAPEUTIC TABLET PO SCH (08:19)
[2021-05-06] MEDS: METOPROLOL SUCCINATE 25 MG ER TABLET PO SCH (08:20)
[2021-05-06 16:42] VITALS: BP 132/75
[2021-05-06] MEDS: LURASIDONE HCL 60 MG TABLET PO SCH (17:30)
[2021-05-07 08:00] VITALS: BP 85/55
[2021-05-07] MEDS: METOPROLOL SUCCINATE 25 MG ER TABLET PO SCH (09:00)
[2021-05-07] MEDS: MULTIVITAMINS WITH MINERALS, THERAPEUTIC TABLET PO SCH (09:43)
[2021-05-07] MEDS: APIXABAN 5 MG TABLET PO SCH ×2 (09:43→17:26)
[2021-05-07] MEDS: LURASIDONE HCL 60 MG TABLET PO SCH (17:26)
[2021-05-08 02:00] VITALS: BP 103/56
[2021-05-08 05:12] LABS: COVID AG,FIA SOURCE NASAL SWAB
[2021-05-08 09:30] VITALS: BP 100/50
[2021-05-08] MEDS: MULTIVITAMINS WITH MINERALS, THERAPEUTIC TABLET PO SCH (09:30)
[2021-05-08] MEDS: APIXABAN 5 MG TABLET PO SCH ×2 (09:30→17:22)
[2021-05-08] MEDS: METOPROLOL SUCCINATE 25 MG ER TABLET PO SCH (09:31)
[2021-05-08 16:49] VITALS: BP 105/65
[2021-05-08] MEDS: LURASIDONE HCL 60 MG TABLET PO SCH (17:22)
[2021-05-09 09:00] VITALS: BP 110/66
[2021-05-09] MEDS: APIXABAN 5 MG TABLET PO SCH ×2 (09:24→16:31)
[2021-05-09] MEDS: MULTIVITAMINS WITH MINERALS, THERAPEUTIC TABLET PO SCH (09:24)
[2021-05-09] MEDS: METOPROLOL SUCCINATE 25 MG ER TABLET PO SCH (09:24)
[2021-05-09] MEDS: LURASIDONE HCL 60 MG TABLET PO SCH (16:31)
[2021-05-10] MEDS: METOPROLOL SUCCINATE 25 MG ER TABLET PO SCH (08:27)
[2021-05-10] MEDS: MULTIVITAMINS WITH MINERALS, THERAPEUTIC TABLET PO SCH (08:27)
[2021-05-10] MEDS: APIXABAN 5 MG TABLET PO SCH ×2 (08:28→16:29)
[2021-05-10 08:30] VITALS: BP 107/60
[2021-05-10] MEDS: LURASIDONE HCL 60 MG TABLET PO SCH (16:29)
[2021-05-10 17:36] VITALS: BP 140/81
[2021-05-11] MEDS: MULTIVITAMINS WITH MINERALS, THERAPEUTIC TABLET PO SCH (08:21)
[2021-05-11] MEDS: METOPROLOL SUCCINATE 25 MG ER TABLET PO SCH (08:21)
[2021-05-11] MEDS: APIXABAN 5 MG TABLET PO SCH ×2 (08:21→17:39)
[2021-05-11 09:00] VITALS: BP 105/65
[2021-05-11 16:04] VITALS: BP 125/54
[2021-05-11] MEDS: LURASIDONE HCL 60 MG TABLET PO SCH (17:39)
[2021-05-12 08:00] VITALS: BP 129/57
[2021-05-12] MEDS: MULTIVITAMINS WITH MINERALS, THERAPEUTIC TABLET PO SCH (08:21)
[2021-05-12] MEDS: APIXABAN 5 MG TABLET PO SCH ×2 (08:21→16:07)
[2021-05-12] MEDS: METOPROLOL SUCCINATE 25 MG ER TABLET PO SCH (08:22)
[2021-05-12] MEDS: LURASIDONE HCL 60 MG TABLET PO SCH (16:35)
[2021-05-13] MEDS: APIXABAN 5 MG TABLET PO SCH ×2 (08:23→16:14)
[2021-05-13] MEDS: MULTIVITAMINS WITH MINERALS, THERAPEUTIC TABLET PO SCH (08:23)
[2021-05-13] MEDS: METOPROLOL SUCCINATE 25 MG ER TABLET PO SCH (08:24)
[2021-05-13 09:48] VITALS: BP 148/95
[2021-05-13] MEDS: LURASIDONE HCL 60 MG TABLET PO SCH (16:14)
[2021-05-13 17:53] VITALS: BP 142/80
[2021-05-14] MEDS: MULTIVITAMINS WITH MINERALS, THERAPEUTIC TABLET PO SCH (08:08)
[2021-05-14] MEDS: APIXABAN 5 MG TABLET PO SCH ×2 (08:09→16:58)
[2021-05-14] MEDS: METOPROLOL SUCCINATE 25 MG ER TABLET PO SCH (08:10)
[2021-05-14 09:34] VITALS: BP 124/46
[2021-05-14] MEDS: LURASIDONE HCL 60 MG TABLET PO SCH (16:58)
[2021-05-15 01:47] VITALS: BP 149/86
[2021-05-15 07:23] LABS: BASOPHILS % (AUTO) 0.9 % (0.0-2.0); EOSINOPHILS % (AUTO) 1.3 % (1.0-6.0); HEMATOCRIT 39.3 % (36-46); HEMOGLOBIN 13.6 g/dL (12.0-16.0); LYMPHOCYTES # (AUTO) 1.5 K/uL (1.0-4.8); LYMPHOCYTES % (AUTO) 21.4 % (22.0-44.0); MEAN CORPUSCULAR HEMOGLOBIN 31.4 pg (26.0-34.0); MEAN CORPUSCULAR HGB CONC 34.6 G/dL (31.0-37.0); MEAN CORPUSCULAR VOLUME 91 fL (80-100); MONOCYTES # (AUTO) 0.6 K/uL (0.1-1.0); NEUTROPHILS # (AUTO) 4.8 K/uL (1.8-7.7); NEUTROPHILS % (AUTO) 68.4 % (40.0-70.0); PLATELET COUNT (AUTO) 190 K/uL (150-450); RED BLOOD CELL COUNT(AUTO) 4.33 MIL/uL (4.00-5.20); RED CELL DISTRIBUTION WIDTH 13.6 % (11.5-14.5)
[2021-05-15 07:35] LABS: ALANINE AMINOTRANSFERASE 17 U/L (12-78); ALBUMIN 2.8 g/dL (3.4-5.0); ALKALINE PHOSPHATASE 101 U/L (46-116); ANION GAP 7 mmol/L (8-16); ASPARTATE AMINOTRANSFERASE 16 U/L (15-37); BILIRUBIN,TOTAL 0.5 mg/dL (0.1-1.0); CALCIUM, TOTAL 8.6 mg/dL (8.8-10.5); CARBON DIOXIDE 30 mmol/L (22-29); CHLORIDE 106 mmol/L (98-107); CREATININE 0.86 mg/dL (0.60-1.30); GLUCOSE,RANDOM 97 mg/dL (70-110); POTASSIUM 4.1 mmol/L (3.5-5.1); SODIUM SERUM 143 mmol/L (136-145); TOTAL PROTEIN, SERUM 6.4 g/dL (6.4-8.2); UREA NITROGEN, BLOOD 17 mg/dL (7-18)
[2021-05-15 07:36] LABS: GLOMERULAR FILTR. RATE CALC > 60 mL/min (>60)
[2021-05-15 07:39] LABS: HEMOGLOBIN A1C 5.7 % (3.8-5.6)
[2021-05-15] MEDS: APIXABAN 5 MG TABLET PO SCH ×2 (09:43→16:37)
[2021-05-15] MEDS: MULTIVITAMINS WITH MINERALS, THERAPEUTIC TABLET PO SCH (09:43)
[2021-05-15] MEDS: METOPROLOL SUCCINATE 25 MG ER TABLET PO SCH (09:48)
[2021-05-15 10:53] LABS: COVID AG,FIA SOURCE NASOPHARYNGEAL
[2021-05-15 12:14] LABS: CHOL/HDL RATIO 2.8 (3.9-5.7); CHOLESTEROL 139 mg/dL (131-200); HDL CHOLESTEROL 49 mg/dL (40-60); LDL CHOL (CALC.) 63 mg/dL (0-130); TRIGLYCERIDES 133 mg/dL (15-150)
[2021-05-15 16:00] VITALS: BP 139/81
[2021-05-15] MEDS: LURASIDONE HCL 60 MG TABLET PO SCH (16:37)
[2021-05-16 04:29] VITALS: BP 125/72
[2021-05-16] MEDS: METOPROLOL SUCCINATE 25 MG ER TABLET PO SCH (08:34)
[2021-05-16] MEDS: APIXABAN 5 MG TABLET PO SCH ×2 (08:34→16:45)
[2021-05-16] MEDS: MULTIVITAMINS WITH MINERALS, THERAPEUTIC TABLET PO SCH (08:34)
[2021-05-16 09:17] VITALS: BP 127/73
[2021-05-16 16:43] VITALS: BP 122/84
[2021-05-16] MEDS: LURASIDONE HCL 60 MG TABLET PO SCH (16:45)
[2021-05-17 08:00] VITALS: BP 121/70
[2021-05-17] MEDS: APIXABAN 5 MG TABLET PO SCH ×2 (08:28→16:34)
[2021-05-17] MEDS: MULTIVITAMINS WITH MINERALS, THERAPEUTIC TABLET PO SCH (08:28)
[2021-05-17] MEDS: METOPROLOL SUCCINATE 25 MG ER TABLET PO SCH (08:28)
[2021-05-17 16:34] VITALS: BP 146/70
[2021-05-17] MEDS: LURASIDONE HCL 60 MG TABLET PO SCH (16:34)
[2021-05-18 04:36] VITALS: BP 121/88
[2021-05-18 08:42] VITALS: BP 114/56
[2021-05-18] MEDS: APIXABAN 5 MG TABLET PO SCH ×2 (08:58→16:37)
[2021-05-18] MEDS: MULTIVITAMINS WITH MINERALS, THERAPEUTIC TABLET PO SCH (08:58)
[2021-05-18] MEDS: METOPROLOL SUCCINATE 25 MG ER TABLET PO SCH (08:59)
[2021-05-18] MEDS: LURASIDONE HCL 60 MG TABLET PO SCH (16:38)
[2021-05-19 08:50] VITALS: BP 118/72
[2021-05-19] MEDS: APIXABAN 5 MG TABLET PO SCH ×2 (09:34→17:11)
[2021-05-19] MEDS: METOPROLOL SUCCINATE 25 MG ER TABLET PO SCH (09:34)
[2021-05-19] MEDS: MULTIVITAMINS WITH MINERALS, THERAPEUTIC TABLET PO SCH (09:34)
[2021-05-19 16:02] VITALS: BP 131/78
[2021-05-19] MEDS: LURASIDONE HCL 60 MG TABLET PO SCH (17:12)
[2021-05-20] MEDS: MULTIVITAMINS WITH MINERALS, THERAPEUTIC TABLET PO SCH (08:44)
[2021-05-20] MEDS: METOPROLOL SUCCINATE 25 MG ER TABLET PO SCH (08:44)
[2021-05-20] MEDS: APIXABAN 5 MG TABLET PO SCH ×2 (08:44→17:33)
[2021-05-20 09:15] VITALS: BP 112/66
[2021-05-20 16:01] VITALS: BP 121/77
[2021-05-20] MEDS: LURASIDONE HCL 60 MG TABLET PO SCH (17:33)
[2021-05-21 01:00] VITALS: BP 129/77
[2021-05-21] MEDS: MULTIVITAMINS WITH MINERALS, THERAPEUTIC TABLET PO SCH (08:39)
[2021-05-21] MEDS: APIXABAN 5 MG TABLET PO SCH ×2 (08:39→17:37)
[2021-05-21] MEDS: METOPROLOL SUCCINATE 25 MG ER TABLET PO SCH (08:39)
[2021-05-21 09:48] VITALS: BP 159/87
[2021-05-21 16:32] VITALS: BP 136/78
[2021-05-21] MEDS: LURASIDONE HCL 60 MG TABLET PO SCH (17:38)
[2021-05-22 03:24] VITALS: BP 140/70
[2021-05-22] MEDS: APIXABAN 5 MG TABLET PO SCH ×2 (09:26→17:54)
[2021-05-22] MEDS: MULTIVITAMINS WITH MINERALS, THERAPEUTIC TABLET PO SCH (09:26)
[2021-05-22] MEDS: METOPROLOL SUCCINATE 25 MG ER TABLET PO SCH (09:26)
[2021-05-22 09:57] VITALS: BP 92/51
[2021-05-22 16:08] VITALS: BP_SYST 103; BP_SYST 116; BP_DIAS 41; BP_DIAS 63
[2021-05-22 17:17] LABS: COVID AG,FIA SOURCE NASOPHARYNGEAL
[2021-05-22] MEDS: LURASIDONE HCL 60 MG TABLET PO SCH (17:55)
[2021-05-23 01:00] VITALS: BP 135/70
[2021-05-23] MEDS: METOPROLOL SUCCINATE 25 MG ER TABLET PO SCH (09:38)
[2021-05-23] MEDS: MULTIVITAMINS WITH MINERALS, THERAPEUTIC TABLET PO SCH (09:38)
[2021-05-23] MEDS: APIXABAN 5 MG TABLET PO SCH ×2 (09:38→17:14)
[2021-05-23 10:00] VITALS: BP 106/66
[2021-05-23] MEDS: LURASIDONE HCL 60 MG TABLET PO SCH (17:14)
[2021-05-24 04:33] VITALS: BP 139/80
[2021-05-24] MEDS: MULTIVITAMINS WITH MINERALS, THERAPEUTIC TABLET PO SCH (08:22)
[2021-05-24] MEDS: APIXABAN 5 MG TABLET PO SCH ×2 (08:22→16:35)
[2021-05-24] MEDS: METOPROLOL SUCCINATE 25 MG ER TABLET PO SCH (08:23)
[2021-05-24 09:10] VITALS: BP 149/67
[2021-05-24] MEDS: LURASIDONE HCL 60 MG TABLET PO SCH (16:35)
[2021-05-25] MEDS: MULTIVITAMINS WITH MINERALS, THERAPEUTIC TABLET PO SCH (08:27)
[2021-05-25] MEDS: METOPROLOL SUCCINATE 25 MG ER TABLET PO SCH (08:28)
[2021-05-25] MEDS: APIXABAN 5 MG TABLET PO SCH ×2 (08:28→16:37)
[2021-05-25 09:00] VITALS: BP 126/74
[2021-05-25 16:02] VITALS: BP 130/75
[2021-05-25] MEDS: LURASIDONE HCL 60 MG TABLET PO SCH (16:35)
[2021-05-26] MEDS: MULTIVITAMINS WITH MINERALS, THERAPEUTIC TABLET PO SCH (08:50)
[2021-05-26] MEDS: APIXABAN 5 MG TABLET PO SCH ×2 (08:50→17:00)
[2021-05-26] MEDS: METOPROLOL SUCCINATE 25 MG ER TABLET PO SCH (08:50)
[2021-05-26 09:43] VITALS: BP 143/56
[2021-05-26] MEDS: LURASIDONE HCL 60 MG TABLET PO SCH (17:39)
[2021-05-26 19:02] VITALS: BP 123/65
[2021-05-27 05:37] VITALS: BP 120/66
[2021-05-27] MEDS: APIXABAN 5 MG TABLET PO SCH ×2 (08:14→17:21)
[2021-05-27] MEDS: METOPROLOL SUCCINATE 25 MG ER TABLET PO SCH (08:14)
[2021-05-27] MEDS: MULTIVITAMINS WITH MINERALS, THERAPEUTIC TABLET PO SCH (08:14)
[2021-05-27 09:00] VITALS: BP 122/47
[2021-05-27 11:22] VITALS: BP 109/42
[2021-05-27 16:26] VITALS: BP 148/75
[2021-05-27] MEDS: LURASIDONE HCL 60 MG TABLET PO SCH (17:20)
[2021-05-28] MEDS: APIXABAN 5 MG TABLET PO SCH ×2 (08:34→16:47)
[2021-05-28] MEDS: METOPROLOL SUCCINATE 25 MG ER TABLET PO SCH (08:34)
[2021-05-28] MEDS: MULTIVITAMINS WITH MINERALS, THERAPEUTIC TABLET PO SCH (08:34)
[2021-05-28 09:00] VITALS: BP 157/81
[2021-05-28 16:01] VITALS: BP 128/72
[2021-05-28] MEDS: LURASIDONE HCL 60 MG TABLET PO SCH (16:47)
[2021-05-29 10:21] VITALS: BP 125/54
[2021-05-29] MEDS: MULTIVITAMINS WITH MINERALS, THERAPEUTIC TABLET PO SCH (10:30)
[2021-05-29] MEDS: APIXABAN 5 MG TABLET PO SCH ×2 (10:30→16:50)
[2021-05-29] MEDS: METOPROLOL SUCCINATE 25 MG ER TABLET PO SCH (10:30)
[2021-05-29 12:48] LABS: COVID AG,FIA SOURCE NASOPHARYNGEAL
[2021-05-29] MEDS: LURASIDONE HCL 60 MG TABLET PO SCH (16:50)
[2021-05-29 17:14] VITALS: BP 129/84
[2021-05-30 08:00] VITALS: BP 148/76
[2021-05-30] MEDS: MULTIVITAMINS WITH MINERALS, THERAPEUTIC TABLET PO SCH (08:41)
[2021-05-30] MEDS: APIXABAN 5 MG TABLET PO SCH ×2 (08:41→17:01)
[2021-05-30] MEDS: METOPROLOL SUCCINATE 25 MG ER TABLET PO SCH (08:42)
[2021-05-30] MEDS: LURASIDONE HCL 60 MG TABLET PO SCH (17:01)
[2021-05-30 17:09] VITALS: BP 140/77
[2021-05-30 18:19] VITALS: BP 148/69
[2021-05-30] MEDS: ACETAMINOPHEN 325 MG TABLET PO PRN (18:19)
[2021-05-31 08:00] VITALS: BP 169/90
[2021-05-31] MEDS: MULTIVITAMINS WITH MINERALS, THERAPEUTIC TABLET PO SCH (08:48)
[2021-05-31] MEDS: APIXABAN 5 MG TABLET PO SCH ×2 (08:48→17:01)
[2021-05-31] MEDS: METOPROLOL SUCCINATE 25 MG ER TABLET PO SCH (08:48)
[2021-05-31] MEDS ORDERED: CloNIDine HCL 0.1 MG TABLET PO PRN (17:00)
[2021-05-31] MEDS: LURASIDONE HCL 60 MG TABLET PO SCH (17:02)
[2021-06-01] MEDS: METOPROLOL SUCCINATE 25 MG ER TABLET PO SCH (08:44)
[2021-06-01] MEDS: MULTIVITAMINS WITH MINERALS, THERAPEUTIC TABLET PO SCH (08:44)
[2021-06-01] MEDS: APIXABAN 5 MG TABLET PO SCH ×2 (08:44→17:11)
[2021-06-01 09:36] VITALS: BP 107/68
[2021-06-01 16:00] VITALS: BP 115/71
[2021-06-01] MEDS: LURASIDONE HCL 60 MG TABLET PO SCH (17:10)
[2021-06-02 08:15] VITALS: BP 129/89
[2021-06-02] MEDS: METOPROLOL SUCCINATE 25 MG ER TABLET PO SCH (09:23)
[2021-06-02] MEDS: MULTIVITAMINS WITH MINERALS, THERAPEUTIC TABLET PO SCH (09:23)
[2021-06-02] MEDS: APIXABAN 5 MG TABLET PO SCH ×2 (09:24→17:22)
[2021-06-02 16:07] VITALS: BP 131/84
[2021-06-02] MEDS: LURASIDONE HCL 60 MG TABLET PO SCH (17:21)
[2021-06-03 08:00] VITALS: BP 105/55
[2021-06-03] MEDS: METOPROLOL SUCCINATE 25 MG ER TABLET PO SCH (09:00)
[2021-06-03] MEDS: MULTIVITAMINS WITH MINERALS, THERAPEUTIC TABLET PO SCH (10:04)
[2021-06-03] MEDS: APIXABAN 5 MG TABLET PO SCH ×2 (10:04→16:18)
[2021-06-03 16:00] VITALS: BP 137/64
[2021-06-03] MEDS: LURASIDONE HCL 60 MG TABLET PO SCH (17:03)
[2021-06-04 08:06] VITALS: BP 143/87
[2021-06-04] MEDS: APIXABAN 5 MG TABLET PO SCH ×2 (08:46→16:38)
[2021-06-04] MEDS: METOPROLOL SUCCINATE 25 MG ER TABLET PO SCH (08:47)
[2021-06-04] MEDS: MULTIVITAMINS WITH MINERALS, THERAPEUTIC TABLET PO SCH (08:48)
[2021-06-04] MEDS: LURASIDONE HCL 60 MG TABLET PO SCH (16:38)
[2021-06-04 17:44] VITALS: BP 128/85
[2021-06-05 09:00] VITALS: BP 123/57
[2021-06-05] MEDS: METOPROLOL SUCCINATE 25 MG ER TABLET PO SCH (09:55)
[2021-06-05] MEDS: MULTIVITAMINS WITH MINERALS, THERAPEUTIC TABLET PO SCH (09:55)
[2021-06-05] MEDS: APIXABAN 5 MG TABLET PO SCH ×2 (09:55→17:16)
[2021-06-05 15:33] LABS: COVID AG,FIA SOURCE NASOPHARYNGEAL
[2021-06-05 17:16] VITALS: BP_SYST 112; BP_DIAS 58; BP_DIAS 68
[2021-06-05] MEDS: LURASIDONE HCL 60 MG TABLET PO SCH (17:16)
[2021-06-06] MEDS: APIXABAN 5 MG TABLET PO SCH ×2 (08:18→16:06)
[2021-06-06] MEDS: METOPROLOL SUCCINATE 25 MG ER TABLET PO SCH (08:18)
[2021-06-06] MEDS: MULTIVITAMINS WITH MINERALS, THERAPEUTIC TABLET PO SCH (08:18)
[2021-06-06] MEDS: LURASIDONE HCL 60 MG TABLET PO SCH (16:06)
[2021-06-06 16:18] VITALS: BP 108/66
[2021-06-07 08:05] VITALS: BP 99/60
[2021-06-07] MEDS: APIXABAN 5 MG TABLET PO SCH ×2 (08:23→17:07)
[2021-06-07] MEDS: MULTIVITAMINS WITH MINERALS, THERAPEUTIC TABLET PO SCH (08:23)
[2021-06-07] MEDS: METOPROLOL SUCCINATE 25 MG ER TABLET PO SCH (08:24)
[2021-06-07 16:00] VITALS: BP 144/61
[2021-06-07] MEDS: LURASIDONE HCL 60 MG TABLET PO SCH (17:07)
[2021-06-08 08:07] VITALS: BP 126/87
[2021-06-08] MEDS: MULTIVITAMINS WITH MINERALS, THERAPEUTIC TABLET PO SCH (08:14)
[2021-06-08] MEDS: APIXABAN 5 MG TABLET PO SCH ×2 (08:15→16:26)
[2021-06-08] MEDS: METOPROLOL SUCCINATE 25 MG ER TABLET PO SCH (08:16)
[2021-06-08] MEDS: LURASIDONE HCL 60 MG TABLET PO SCH (16:35)
[2021-06-08 16:56] VITALS: BP 124/79
[2021-06-09] MEDS: MULTIVITAMINS WITH MINERALS, THERAPEUTIC TABLET PO SCH (08:28)
[2021-06-09] MEDS: APIXABAN 5 MG TABLET PO SCH ×2 (08:29→16:39)
[2021-06-09] MEDS: METOPROLOL SUCCINATE 25 MG ER TABLET PO SCH (08:31)
[2021-06-09 08:47] VITALS: BP 143/91
[2021-06-09] MEDS: LURASIDONE HCL 60 MG TABLET PO SCH (16:39)
[2021-06-09 16:56] VITALS: BP 114/80
[2021-06-10 08:38] VITALS: BP 155/112
[2021-06-10] MEDS: APIXABAN 5 MG TABLET PO SCH ×2 (08:46→16:43)
[2021-06-10] MEDS: MULTIVITAMINS WITH MINERALS, THERAPEUTIC TABLET PO SCH (08:46)
[2021-06-10] MEDS: METOPROLOL SUCCINATE 25 MG ER TABLET PO SCH (08:46)
[2021-06-10] MEDS: LURASIDONE HCL 60 MG TABLET PO SCH (16:43)
[2021-06-10 17:13] VITALS: BP 140/86
[2021-06-11] MEDS: MULTIVITAMINS WITH MINERALS, THERAPEUTIC TABLET PO SCH (09:27)
[2021-06-11] MEDS: APIXABAN 5 MG TABLET PO SCH ×2 (09:27→16:57)
[2021-06-11] MEDS: METOPROLOL SUCCINATE 25 MG ER TABLET PO SCH (09:36)
[2021-06-11 09:56] VITALS: BP 107/73
[2021-06-11 16:35] VITALS: BP 125/75
[2021-06-11] MEDS: LURASIDONE HCL 60 MG TABLET PO SCH (16:57)
[2021-06-12 06:56] LABS: COVID AG,FIA SOURCE NASAL SWAB
[2021-06-12 08:27] VITALS: BP 127/74
[2021-06-12] MEDS: METOPROLOL SUCCINATE 25 MG ER TABLET PO SCH (08:55)
[2021-06-12] MEDS: APIXABAN 5 MG TABLET PO SCH ×2 (08:56→16:55)
[2021-06-12] MEDS: MULTIVITAMINS WITH MINERALS, THERAPEUTIC TABLET PO SCH (08:56)
[2021-06-12 16:07] VITALS: BP 140/77
[2021-06-12] MEDS: LURASIDONE HCL 60 MG TABLET PO SCH (16:55)
[2021-06-13 08:03] VITALS: BP 121/83
[2021-06-13] MEDS: METOPROLOL SUCCINATE 25 MG ER TABLET PO SCH (09:30)
[2021-06-13] MEDS: APIXABAN 5 MG TABLET PO SCH ×2 (09:30→17:12)
[2021-06-13] MEDS: MULTIVITAMINS WITH MINERALS, THERAPEUTIC TABLET PO SCH (09:30)
[2021-06-13 16:18] VITALS: BP 138/66
[2021-06-13] MEDS: LURASIDONE HCL 60 MG TABLET PO SCH (17:11)
[2021-06-14 09:00] VITALS: BP 93/50
[2021-06-14] MEDS: MULTIVITAMINS WITH MINERALS, THERAPEUTIC TABLET PO SCH (09:36)
[2021-06-14] MEDS: APIXABAN 5 MG TABLET PO SCH ×2 (09:38→16:02)
[2021-06-14] MEDS: METOPROLOL SUCCINATE 25 MG ER TABLET PO SCH (09:39)
[2021-06-14 16:00] VITALS: BP 110/69
[2021-06-14] MEDS: LURASIDONE HCL 60 MG TABLET PO SCH (17:32)
[2021-06-15] MEDS: METOPROLOL SUCCINATE 25 MG ER TABLET PO SCH (08:18)
[2021-06-15] MEDS: APIXABAN 5 MG TABLET PO SCH ×2 (08:18→16:33)
[2021-06-15] MEDS: MULTIVITAMINS WITH MINERALS, THERAPEUTIC TABLET PO SCH (08:18)
[2021-06-15 09:30] VITALS: BP 128/87
[2021-06-15 09:54] VITALS: BP 128/87
[2021-06-15 16:04] VITALS: BP 130/80
[2021-06-15] MEDS: LURASIDONE HCL 60 MG TABLET PO SCH (16:33)
[2021-06-16 09:22] VITALS: BP 137/70
[2021-06-16] MEDS: MULTIVITAMINS WITH MINERALS, THERAPEUTIC TABLET PO SCH (11:00)
[2021-06-16] MEDS: METOPROLOL SUCCINATE 25 MG ER TABLET PO SCH (11:01)
[2021-06-16] MEDS: APIXABAN 5 MG TABLET PO SCH ×2 (11:02→18:30)
[2021-06-16 16:27] VITALS: BP 156/80
[2021-06-16] MEDS: LURASIDONE HCL 60 MG TABLET PO SCH (18:29)
[2021-06-17 08:36] VITALS: BP 144/76
[2021-06-17] MEDS: METOPROLOL SUCCINATE 25 MG ER TABLET PO SCH (09:16)
[2021-06-17] MEDS: APIXABAN 5 MG TABLET PO SCH ×2 (09:16→17:02)
[2021-06-17] MEDS: MULTIVITAMINS WITH MINERALS, THERAPEUTIC TABLET PO SCH (09:16)
[2021-06-17 16:14] VITALS: BP 128/82
[2021-06-17] MEDS: LURASIDONE HCL 60 MG TABLET PO SCH (17:03)
[2021-06-18 08:33] VITALS: BP 117/65
[2021-06-18] MEDS: MULTIVITAMINS WITH MINERALS, THERAPEUTIC TABLET PO SCH (09:04)
[2021-06-18] MEDS: METOPROLOL SUCCINATE 25 MG ER TABLET PO SCH (09:04)
[2021-06-18] MEDS: APIXABAN 5 MG TABLET PO SCH ×2 (09:04→16:40)
[2021-06-18] MEDS: LURASIDONE HCL 60 MG TABLET PO SCH (16:40)
[2021-06-19] MEDS: APIXABAN 5 MG TABLET PO SCH ×2 (08:17→16:08)
[2021-06-19] MEDS: METOPROLOL SUCCINATE 25 MG ER TABLET PO SCH (08:17)
[2021-06-19] MEDS: MULTIVITAMINS WITH MINERALS, THERAPEUTIC TABLET PO SCH (08:17)
[2021-06-19 09:02] VITALS: BP 138/67
[2021-06-19 13:50] LABS: COVID AG,FIA SOURCE NASOPHARYNGEAL
[2021-06-19] MEDS: LURASIDONE HCL 60 MG TABLET PO SCH (16:08)
[2021-06-19 16:10] VITALS: BP 122/70
[2021-06-20] MEDS: METOPROLOL SUCCINATE 25 MG ER TABLET PO SCH (08:20)
[2021-06-20] MEDS: APIXABAN 5 MG TABLET PO SCH ×2 (08:20→16:08)
[2021-06-20] MEDS: MULTIVITAMINS WITH MINERALS, THERAPEUTIC TABLET PO SCH (08:20)
[2021-06-20 08:51] VITALS: BP 114/64
[2021-06-20] MEDS: LURASIDONE HCL 60 MG TABLET PO SCH (16:08)
[2021-06-20 16:47] VITALS: BP 120/79
[2021-06-21 08:00] VITALS: BP 112/68
[2021-06-21] MEDS: MULTIVITAMINS WITH MINERALS, THERAPEUTIC TABLET PO SCH (09:45)
[2021-06-21] MEDS: APIXABAN 5 MG TABLET PO SCH ×2 (09:46→16:57)
[2021-06-21] MEDS: METOPROLOL SUCCINATE 25 MG ER TABLET PO SCH (09:46)
[2021-06-21 16:23] VITALS: BP 115/65
[2021-06-21] MEDS: LURASIDONE HCL 60 MG TABLET PO SCH (16:57)
[2021-06-22] VITALS: BP 145/78
[2021-06-22 08:00] VITALS: BP 135/100
[2021-06-22] MEDS: METOPROLOL SUCCINATE 25 MG ER TABLET PO SCH (08:32)
[2021-06-22] MEDS: MULTIVITAMINS WITH MINERALS, THERAPEUTIC TABLET PO SCH (08:32)
[2021-06-22] MEDS: APIXABAN 5 MG TABLET PO SCH ×2 (08:34→16:41)
[2021-06-22 16:07] VITALS: BP 139/70
[2021-06-22] MEDS: LURASIDONE HCL 60 MG TABLET PO SCH (16:41)
[2021-06-23 04:57] VITALS: BP 105/71
[2021-06-23] MEDS: MULTIVITAMINS WITH MINERALS, THERAPEUTIC TABLET PO SCH (09:18)
[2021-06-23] MEDS: METOPROLOL SUCCINATE 25 MG ER TABLET PO SCH (09:18)
[2021-06-23] MEDS: APIXABAN 5 MG TABLET PO SCH ×2 (09:18→16:31)
[2021-06-23] MEDS: LURASIDONE HCL 60 MG TABLET PO SCH (16:31)
[2021-06-23 17:00] VITALS: BP 116/67
[2021-06-24 08:35] VITALS: BP 125/61
[2021-06-24] MEDS: APIXABAN 5 MG TABLET PO SCH ×2 (08:41→16:36)
[2021-06-24] MEDS: MULTIVITAMINS WITH MINERALS, THERAPEUTIC TABLET PO SCH (08:41)
[2021-06-24] MEDS: METOPROLOL SUCCINATE 25 MG ER TABLET PO SCH (08:42)
[2021-06-24 16:04] VITALS: BP 141/86
[2021-06-24] MEDS: LURASIDONE HCL 60 MG TABLET PO SCH (16:35)
[2021-06-25 08:10] VITALS: BP 142/77
[2021-06-25] MEDS: METOPROLOL SUCCINATE 25 MG ER TABLET PO SCH (08:11)
[2021-06-25] MEDS: MULTIVITAMINS WITH MINERALS, THERAPEUTIC TABLET PO SCH (08:11)
[2021-06-25] MEDS: APIXABAN 5 MG TABLET PO SCH ×2 (08:11→17:07)
[2021-06-25 09:19] VITALS: BP 142/77
[2021-06-25] MEDS: IBUPROFEN 600 MG TABLET PO PRN (09:19)
[2021-06-25 16:06] VITALS: BP 131/55
[2021-06-25] MEDS: ACETAMINOPHEN 325 MG TABLET PO PRN (16:23)
[2021-06-25] MEDS: LURASIDONE HCL 60 MG TABLET PO SCH (17:07)
[2021-06-26 08:00] VITALS: BP 118/46
[2021-06-26] MEDS: MULTIVITAMINS WITH MINERALS, THERAPEUTIC TABLET PO SCH (09:11)
[2021-06-26] MEDS: APIXABAN 5 MG TABLET PO SCH ×2 (09:12→16:31)
[2021-06-26] MEDS: METOPROLOL SUCCINATE 25 MG ER TABLET PO SCH (09:12)
[2021-06-26 15:14] LABS: COVID AG,FIA SOURCE NASOPHARYNGEAL
[2021-06-26 16:26] VITALS: BP 114/75
[2021-06-26] MEDS: LURASIDONE HCL 60 MG TABLET PO SCH (16:31)
[2021-06-27] MEDS: APIXABAN 5 MG TABLET PO SCH ×2 (09:02→16:49)
[2021-06-27] MEDS: METOPROLOL SUCCINATE 25 MG ER TABLET PO SCH (09:02)
[2021-06-27] MEDS: MULTIVITAMINS WITH MINERALS, THERAPEUTIC TABLET PO SCH (09:02)
[2021-06-27 16:26] VITALS: BP 124/60
[2021-06-27] MEDS: LURASIDONE HCL 60 MG TABLET PO SCH (16:49)
[2021-06-28] MEDS: APIXABAN 5 MG TABLET PO SCH ×2 (09:01→16:22)
[2021-06-28] MEDS: MULTIVITAMINS WITH MINERALS, THERAPEUTIC TABLET PO SCH (09:01)
[2021-06-28] MEDS: METOPROLOL SUCCINATE 25 MG ER TABLET PO SCH (09:01)
[2021-06-28 16:17] VITALS: BP 150/75
[2021-06-28] MEDS: LURASIDONE HCL 60 MG TABLET PO SCH (16:21)
[2021-06-29] MEDS: METOPROLOL SUCCINATE 25 MG ER TABLET PO SCH (08:48)
[2021-06-29] MEDS: MULTIVITAMINS WITH MINERALS, THERAPEUTIC TABLET PO SCH (08:48)
[2021-06-29] MEDS: APIXABAN 5 MG TABLET PO SCH ×2 (08:49→16:32)
[2021-06-29 09:41] VITALS: BP 132/57
[2021-06-29 16:15] VITALS: BP 129/69
[2021-06-29] MEDS: LURASIDONE HCL 60 MG TABLET PO SCH (16:32)
[2021-06-30 08:30] VITALS: BP 120/78
[2021-06-30] MEDS: METOPROLOL SUCCINATE 25 MG ER TABLET PO SCH (09:32)
[2021-06-30] MEDS: APIXABAN 5 MG TABLET PO SCH ×2 (09:32→16:51)
[2021-06-30] MEDS: MULTIVITAMINS WITH MINERALS, THERAPEUTIC TABLET PO SCH (09:32)
[2021-06-30 16:13] VITALS: BP 128/75
[2021-06-30] MEDS: LURASIDONE HCL 60 MG TABLET PO SCH (16:51)
[2021-07-01 09:06] VITALS: BP 141/51
[2021-07-01] MEDS: MULTIVITAMINS WITH MINERALS, THERAPEUTIC TABLET PO SCH (09:14)
[2021-07-01] MEDS: APIXABAN 5 MG TABLET PO SCH ×2 (09:14→16:17)
[2021-07-01] MEDS: METOPROLOL SUCCINATE 25 MG ER TABLET PO SCH (09:14)
[2021-07-01 09:59] VITALS: BP 141/59
[2021-07-01] MEDS: IBUPROFEN 600 MG TABLET PO PRN (09:59)
[2021-07-01 16:57] VITALS: BP 134/66
[2021-07-01] MEDS: LURASIDONE HCL 60 MG TABLET PO SCH (18:29)
[2021-07-02] MEDS: MULTIVITAMINS WITH MINERALS, THERAPEUTIC TABLET PO SCH (08:33)
[2021-07-02] MEDS: APIXABAN 5 MG TABLET PO SCH ×2 (08:34→16:02)
[2021-07-02] MEDS: METOPROLOL SUCCINATE 25 MG ER TABLET PO SCH (08:34)
[2021-07-02 08:41] VITALS: BP 136/72
[2021-07-02] MEDS: LURASIDONE HCL 60 MG TABLET PO SCH (16:02)
[2021-07-02 16:30] VITALS: BP 143/78
[2021-07-03 08:45] VITALS: BP 136/71
[2021-07-03] MEDS: METOPROLOL SUCCINATE 25 MG ER TABLET PO SCH (09:28)
[2021-07-03] MEDS: APIXABAN 5 MG TABLET PO SCH ×2 (09:28→16:53)
[2021-07-03] MEDS: MULTIVITAMINS WITH MINERALS, THERAPEUTIC TABLET PO SCH (09:28)
[2021-07-03 12:04] LABS: COVID AG,FIA SOURCE NASOPHARYNGEAL
[2021-07-03 16:09] VITALS: BP 131/81
[2021-07-03] MEDS: LURASIDONE HCL 60 MG TABLET PO SCH (16:53)
[2021-07-03] MEDS: MAGNESIUM HYDROXIDE SUSPENSION 30 ML UDCUP PO PRN (20:50)
[2021-07-04 02:30] VITALS: BP 140/78
[2021-07-04] MEDS: APIXABAN 5 MG TABLET PO SCH ×2 (08:58→16:35)
[2021-07-04] MEDS: MULTIVITAMINS WITH MINERALS, THERAPEUTIC TABLET PO SCH (08:58)
[2021-07-04] MEDS: METOPROLOL SUCCINATE 25 MG ER TABLET PO SCH (08:58)
[2021-07-04 10:39] VITALS: BP 103/58
[2021-07-04 13:08] VITALS: BP 112/62
[2021-07-04] MEDS: LURASIDONE HCL 60 MG TABLET PO SCH (16:36)
[2021-07-04 17:00] VITALS: BP 114/63
[2021-07-05 09:17] VITALS: BP 112/65
[2021-07-05] MEDS: APIXABAN 5 MG TABLET PO SCH ×2 (09:21→16:17)
[2021-07-05] MEDS: METOPROLOL SUCCINATE 25 MG ER TABLET PO SCH (09:21)
[2021-07-05] MEDS: MULTIVITAMINS WITH MINERALS, THERAPEUTIC TABLET PO SCH (09:21)
[2021-07-05] MEDS: LURASIDONE HCL 60 MG TABLET PO SCH (16:17)
[2021-07-05 16:57] VITALS: BP 124/76
[2021-07-06 09:09] VITALS: BP 120/79
[2021-07-06] MEDS: APIXABAN 5 MG TABLET PO SCH ×2 (10:38→16:30)
[2021-07-06] MEDS: METOPROLOL SUCCINATE 25 MG ER TABLET PO SCH (10:38)
[2021-07-06] MEDS: MULTIVITAMINS WITH MINERALS, THERAPEUTIC TABLET PO SCH (10:39)
[2021-07-06 16:05] VITALS: BP 113/63
[2021-07-06] MEDS: LURASIDONE HCL 60 MG TABLET PO SCH (16:30)
[2021-07-07 08:02] VITALS: BP 131/70
[2021-07-07] MEDS: METOPROLOL SUCCINATE 25 MG ER TABLET PO SCH (09:00)
[2021-07-07] MEDS: APIXABAN 5 MG TABLET PO SCH ×2 (09:00→16:40)
[2021-07-07] MEDS: MULTIVITAMINS WITH MINERALS, THERAPEUTIC TABLET PO SCH (09:00)
[2021-07-07] MEDS: LURASIDONE HCL 60 MG TABLET PO SCH (16:40)
[2021-07-08 08:00] VITALS: BP 127/67
[2021-07-08] MEDS: APIXABAN 5 MG TABLET PO SCH ×2 (08:34→16:04)
[2021-07-08] MEDS: METOPROLOL SUCCINATE 25 MG ER TABLET PO SCH (08:34)
[2021-07-08] MEDS: MULTIVITAMINS WITH MINERALS, THERAPEUTIC TABLET PO SCH (08:34)
[2021-07-08] MEDS: LURASIDONE HCL 60 MG TABLET PO SCH (16:04)
[2021-07-08 16:16] VITALS: BP 131/81
[2021-07-09 08:00] VITALS: BP 122/60
[2021-07-09] MEDS: MULTIVITAMINS WITH MINERALS, THERAPEUTIC TABLET PO SCH (08:35)
[2021-07-09] MEDS: APIXABAN 5 MG TABLET PO SCH ×2 (08:36→16:39)
[2021-07-09] MEDS: METOPROLOL SUCCINATE 25 MG ER TABLET PO SCH (08:36)
[2021-07-09 09:34] VITALS: BP 136/74
[2021-07-09] MEDS: IBUPROFEN 600 MG TABLET PO PRN (09:34)
[2021-07-09 16:00] VITALS: BP 129/70
[2021-07-09] MEDS: LURASIDONE HCL 60 MG TABLET PO SCH (16:39)
[2021-07-10 08:00] VITALS: BP 110/66
[2021-07-10] MEDS: METOPROLOL SUCCINATE 25 MG ER TABLET PO SCH (08:29)
[2021-07-10] MEDS: MULTIVITAMINS WITH MINERALS, THERAPEUTIC TABLET PO SCH (08:29)
[2021-07-10] MEDS: APIXABAN 5 MG TABLET PO SCH ×2 (08:29→16:44)
[2021-07-10 15:10] LABS: COVID AG,FIA SOURCE NASAL SWAB
[2021-07-10] MEDS: LURASIDONE HCL 60 MG TABLET PO SCH (16:44)
[2021-07-10 17:21] VITALS: BP 123/71
[2021-07-11] MEDS: METOPROLOL SUCCINATE 25 MG ER TABLET PO SCH (08:19)
[2021-07-11] MEDS: APIXABAN 5 MG TABLET PO SCH ×2 (08:20→16:41)
[2021-07-11] MEDS: MULTIVITAMINS WITH MINERALS, THERAPEUTIC TABLET PO SCH (08:20)
[2021-07-11 09:00] VITALS: BP 152/77
[2021-07-11 09:28] VITALS: BP 152/77
[2021-07-11] MEDS: IBUPROFEN 600 MG TABLET PO PRN (09:28)
[2021-07-11] MEDS: LURASIDONE HCL 60 MG TABLET PO SCH (16:41)
[2021-07-11 16:44] VITALS: BP 140/70
[2021-07-12] MEDS: APIXABAN 5 MG TABLET PO SCH ×2 (08:59→16:06)
[2021-07-12] MEDS: MULTIVITAMINS WITH MINERALS, THERAPEUTIC TABLET PO SCH (08:59)
[2021-07-12 09:00] VITALS: BP 110/61
[2021-07-12] MEDS: METOPROLOL SUCCINATE 25 MG ER TABLET PO SCH (09:00)
[2021-07-12] MEDS: LURASIDONE HCL 60 MG TABLET PO SCH (16:06)
[2021-07-12 16:35] VITALS: BP 141/80
[2021-07-13] MEDS: MULTIVITAMINS WITH MINERALS, THERAPEUTIC TABLET PO SCH (08:44)
[2021-07-13] MEDS: METOPROLOL SUCCINATE 25 MG ER TABLET PO SCH (08:44)
[2021-07-13] MEDS: APIXABAN 5 MG TABLET PO SCH ×2 (08:44→16:21)
[2021-07-13 09:00] VITALS: BP 129/66
[2021-07-13 09:11] VITALS: BP 139/69
[2021-07-13 16:04] VITALS: BP 140/89
[2021-07-13] MEDS: LURASIDONE HCL 60 MG TABLET PO SCH (16:21)
[2021-07-14] MEDS: METOPROLOL SUCCINATE 25 MG ER TABLET PO SCH (08:23)
[2021-07-14] MEDS: MULTIVITAMINS WITH MINERALS, THERAPEUTIC TABLET PO SCH (08:23)
[2021-07-14] MEDS: APIXABAN 5 MG TABLET PO SCH ×2 (08:23→16:58)
[2021-07-14 08:57] VITALS: BP 109/55
[2021-07-14 16:49] VITALS: BP 137/67
[2021-07-14] MEDS: LURASIDONE HCL 60 MG TABLET PO SCH (16:57)
[2021-07-15] MEDS: METOPROLOL SUCCINATE 25 MG ER TABLET PO SCH (08:50)
[2021-07-15] MEDS: APIXABAN 5 MG TABLET PO SCH ×2 (08:51→17:00)
[2021-07-15] MEDS: MULTIVITAMINS WITH MINERALS, THERAPEUTIC TABLET PO SCH (08:51)
[2021-07-15 09:47] VITALS: BP 117/70
[2021-07-15 16:36] VITALS: BP 128/82
[2021-07-15] MEDS: LURASIDONE HCL 60 MG TABLET PO SCH (17:00)
[2021-07-16 06:06] LABS: BASOPHILS % (AUTO) 0.8 % (0.0-2.0); HEMATOCRIT 38.5 % (36-46); HEMOGLOBIN 13.3 g/dL (12.0-16.0); LYMPHOCYTES # (AUTO) 1.5 K/uL (1.0-4.8); LYMPHOCYTES % (AUTO) 20.2 % (22.0-44.0); MEAN CORPUSCULAR HEMOGLOBIN 31.1 pg (26.0-34.0); MEAN CORPUSCULAR HGB CONC 34.6 G/dL (31.0-37.0); MEAN CORPUSCULAR VOLUME 90 fL (80-100); MONOCYTES # (AUTO) 0.6 K/uL (0.1-1.0); MONOCYTES % (AUTO) 8.3 % (2.0-9.0); NEUTROPHILS # (AUTO) 5.2 K/uL (1.8-7.7); NEUTROPHILS % (AUTO) 69.7 % (40.0-70.0); PLATELET COUNT (AUTO) 186 K/uL (150-450); RED BLOOD CELL COUNT(AUTO) 4.28 MIL/uL (4.00-5.20)
[2021-07-16 06:19] LABS: ALANINE AMINOTRANSFERASE 17 U/L (12-78); ALBUMIN 2.9 g/dL (3.4-5.0); ALKALINE PHOSPHATASE 104 U/L (46-116); ANION GAP 7 mmol/L (8-16); ASPARTATE AMINOTRANSFERASE 20 U/L (15-37); BILIRUBIN,TOTAL 0.5 mg/dL (0.1-1.0); CALCIUM, TOTAL 8.5 mg/dL (8.8-10.5); CARBON DIOXIDE 28 mmol/L (22-29); CHLORIDE 106 mmol/L (98-107); CREATININE 0.75 mg/dL (0.60-1.30); GLUCOSE,RANDOM 83 mg/dL (70-110); POTASSIUM 4.2 mmol/L (3.5-5.1); SODIUM SERUM 141 mmol/L (136-145); TOTAL PROTEIN, SERUM 6.4 g/dL (6.4-8.2); UREA NITROGEN, BLOOD 18 mg/dL (7-18)
[2021-07-16 06:21] LABS: GLOMERULAR FILTR. RATE CALC > 60 mL/min (>60)
[2021-07-16] MEDS: METOPROLOL SUCCINATE 25 MG ER TABLET PO SCH (08:33)
[2021-07-16] MEDS: MULTIVITAMINS WITH MINERALS, THERAPEUTIC TABLET PO SCH (08:33)
[2021-07-16] MEDS: APIXABAN 5 MG TABLET PO SCH ×2 (08:33→16:35)
[2021-07-16 08:35] VITALS: BP 146/80
[2021-07-16 16:23] VITALS: BP 147/65
[2021-07-16] MEDS: LURASIDONE HCL 60 MG TABLET PO SCH (16:35)
[2021-07-17] MEDS: APIXABAN 5 MG TABLET PO SCH ×2 (09:05→16:44)
[2021-07-17] MEDS: MULTIVITAMINS WITH MINERALS, THERAPEUTIC TABLET PO SCH (09:05)
[2021-07-17] MEDS: METOPROLOL SUCCINATE 25 MG ER TABLET PO SCH (09:05)
[2021-07-17 09:42] VITALS: BP 102/67
[2021-07-17 09:55] LABS: COVID AG,FIA SOURCE NASAL SWAB
[2021-07-17 16:09] VITALS: BP 131/82
[2021-07-17] MEDS: LURASIDONE HCL 60 MG TABLET PO SCH (16:43)
[2021-07-18] MEDS: APIXABAN 5 MG TABLET PO SCH ×2 (08:48→16:31)
[2021-07-18] MEDS: MULTIVITAMINS WITH MINERALS, THERAPEUTIC TABLET PO SCH (08:48)
[2021-07-18] MEDS: METOPROLOL SUCCINATE 25 MG ER TABLET PO SCH (08:49)
[2021-07-18 09:00] VITALS: BP 107/55
[2021-07-18 16:26] VITALS: BP 130/65
[2021-07-18 16:27] VITALS: BP 130/65
[2021-07-18] MEDS: LURASIDONE HCL 60 MG TABLET PO SCH (16:31)
[2021-07-19 03:10] VITALS: BP 143/91
[2021-07-19] MEDS: METOPROLOL SUCCINATE 25 MG ER TABLET PO SCH (08:11)
[2021-07-19] MEDS: MULTIVITAMINS WITH MINERALS, THERAPEUTIC TABLET PO SCH (08:11)
[2021-07-19] MEDS: APIXABAN 5 MG TABLET PO SCH ×2 (08:12→16:06)
[2021-07-19 09:16] VITALS: BP 138/76
[2021-07-19] MEDS: LURASIDONE HCL 60 MG TABLET PO SCH (16:06)
[2021-07-19 17:13] VITALS: BP 143/75
[2021-07-20 08:30] VITALS: BP 126/58
[2021-07-20] MEDS: APIXABAN 5 MG TABLET PO SCH ×2 (09:01→16:46)
[2021-07-20] MEDS: MULTIVITAMINS WITH MINERALS, THERAPEUTIC TABLET PO SCH (09:01)
[2021-07-20] MEDS: METOPROLOL SUCCINATE 25 MG ER TABLET PO SCH (09:02)
[2021-07-20] MEDS: LURASIDONE HCL 60 MG TABLET PO SCH (16:46)
[2021-07-20 16:58] VITALS: BP 132/98
[2021-07-21] MEDS: APIXABAN 5 MG TABLET PO SCH ×2 (08:36→16:57)
[2021-07-21] MEDS: METOPROLOL SUCCINATE 25 MG ER TABLET PO SCH (08:36)
[2021-07-21] MEDS: MULTIVITAMINS WITH MINERALS, THERAPEUTIC TABLET PO SCH (08:36)
[2021-07-21 09:22] VITALS: BP 132/69
[2021-07-21 16:28] VITALS: BP 141/75
[2021-07-21] MEDS: LURASIDONE HCL 60 MG TABLET PO SCH (16:57)
[2021-07-22] MEDS: MULTIVITAMINS WITH MINERALS, THERAPEUTIC TABLET PO SCH (08:51)
[2021-07-22] MEDS: METOPROLOL SUCCINATE 25 MG ER TABLET PO SCH (08:51)
[2021-07-22] MEDS: APIXABAN 5 MG TABLET PO SCH ×2 (08:51→16:02)
[2021-07-22 09:00] VITALS: BP 106/61
[2021-07-22] MEDS: LURASIDONE HCL 60 MG TABLET PO SCH (16:03)
[2021-07-22 16:09] VITALS: BP 126/83
[2021-07-23 04:19] VITALS: BP 118/70
[2021-07-23] MEDS: METOPROLOL SUCCINATE 25 MG ER TABLET PO SCH (08:29)
[2021-07-23] MEDS: APIXABAN 5 MG TABLET PO SCH ×2 (08:29→17:00)
[2021-07-23] MEDS: MULTIVITAMINS WITH MINERALS, THERAPEUTIC TABLET PO SCH (08:30)
[2021-07-23 10:04] VITALS: BP 154/70
[2021-07-23 16:03] VITALS: BP 126/81
[2021-07-23] MEDS: LURASIDONE HCL 60 MG TABLET PO SCH (17:00)
[2021-07-24 08:10] VITALS: BP 100/68
[2021-07-24 08:41] LABS: COVID AG,FIA SOURCE NASAL SWAB
[2021-07-24] MEDS: METOPROLOL SUCCINATE 25 MG ER TABLET PO SCH (09:00)
[2021-07-24] MEDS: APIXABAN 5 MG TABLET PO SCH ×2 (09:21→16:44)
[2021-07-24] MEDS: MULTIVITAMINS WITH MINERALS, THERAPEUTIC TABLET PO SCH (09:21)
[2021-07-24 16:10] VITALS: BP 103/73
[2021-07-24] MEDS: LURASIDONE HCL 60 MG TABLET PO SCH (16:44)
[2021-07-25 04:31] VITALS: BP 151/82
[2021-07-25] MEDS: METOPROLOL SUCCINATE 25 MG ER TABLET PO SCH (09:07)
[2021-07-25] MEDS: MULTIVITAMINS WITH MINERALS, THERAPEUTIC TABLET PO SCH (09:07)
[2021-07-25] MEDS: APIXABAN 5 MG TABLET PO SCH ×2 (09:07→16:41)
[2021-07-25] MEDS: LURASIDONE HCL 60 MG TABLET PO SCH (16:41)
[2021-07-25 16:50] VITALS: BP 110/55
[2021-07-26] MEDS: APIXABAN 5 MG TABLET PO SCH ×2 (08:30→16:46)
[2021-07-26] MEDS: METOPROLOL SUCCINATE 25 MG ER TABLET PO SCH (08:31)
[2021-07-26] MEDS: MULTIVITAMINS WITH MINERALS, THERAPEUTIC TABLET PO SCH (08:32)
[2021-07-26 09:53] VITALS: BP 106/59
[2021-07-26] MEDS: LURASIDONE HCL 60 MG TABLET PO SCH (16:46)
[2021-07-26 18:08] VITALS: BP 107/60
[2021-07-27] MEDS: MULTIVITAMINS WITH MINERALS, THERAPEUTIC TABLET PO SCH (08:16)
[2021-07-27] MEDS: APIXABAN 5 MG TABLET PO SCH ×2 (08:16→16:23)
[2021-07-27] MEDS: METOPROLOL SUCCINATE 25 MG ER TABLET PO SCH (08:16)
[2021-07-27 08:47] VITALS: BP 137/50
[2021-07-27 16:03] VITALS: BP 132/77
[2021-07-27] MEDS: LURASIDONE HCL 60 MG TABLET PO SCH (16:23)
[2021-07-28] MEDS: APIXABAN 5 MG TABLET PO SCH ×2 (08:26→17:06)
[2021-07-28] MEDS: METOPROLOL SUCCINATE 25 MG ER TABLET PO SCH (08:26)
[2021-07-28] MEDS: MULTIVITAMINS WITH MINERALS, THERAPEUTIC TABLET PO SCH (08:26)
[2021-07-28 08:30] VITALS: BP 151/79
[2021-07-28 16:00] VITALS: BP 119/92
[2021-07-28] MEDS: LURASIDONE HCL 60 MG TABLET PO SCH (17:06)
[2021-07-29] MEDS: MULTIVITAMINS WITH MINERALS, THERAPEUTIC TABLET PO SCH (08:39)
[2021-07-29] MEDS: METOPROLOL SUCCINATE 25 MG ER TABLET PO SCH (08:40)
[2021-07-29] MEDS: APIXABAN 5 MG TABLET PO SCH ×2 (08:40→16:53)
[2021-07-29 09:21] VITALS: BP 98/72
[2021-07-29] MEDS: LURASIDONE HCL 60 MG TABLET PO SCH (16:53)
[2021-07-30 08:34] VITALS: BP 100/56
[2021-07-30] MEDS: METOPROLOL SUCCINATE 25 MG ER TABLET PO SCH (09:00)
[2021-07-30] MEDS: MULTIVITAMINS WITH MINERALS, THERAPEUTIC TABLET PO SCH (09:07)
[2021-07-30] MEDS: APIXABAN 5 MG TABLET PO SCH ×2 (09:08→16:40)
[2021-07-30] MEDS: LURASIDONE HCL 60 MG TABLET PO SCH (16:40)
[2021-07-30 16:42] VITALS: BP 122/70
[2021-07-31] MEDS: MULTIVITAMINS WITH MINERALS, THERAPEUTIC TABLET PO SCH (08:49)
[2021-07-31] MEDS: APIXABAN 5 MG TABLET PO SCH ×2 (08:49→16:40)
[2021-07-31] MEDS: METOPROLOL SUCCINATE 25 MG ER TABLET PO SCH (08:49)
[2021-07-31 10:33] VITALS: BP 104/61
[2021-07-31 16:15] VITALS: BP 141/79
[2021-07-31] MEDS: LURASIDONE HCL 60 MG TABLET PO SCH (16:40)
[2021-07-31] MEDS: ACETAMINOPHEN 325 MG TABLET PO PRN (17:00)
[2021-07-31 17:01] LABS: COVID AG,FIA SOURCE NASAL SWAB
[2021-08-01] MEDS: APIXABAN 5 MG TABLET PO SCH ×2 (08:52→16:37)
[2021-08-01] MEDS: MULTIVITAMINS WITH MINERALS, THERAPEUTIC TABLET PO SCH (08:52)
[2021-08-01] MEDS: METOPROLOL SUCCINATE 25 MG ER TABLET PO SCH (08:53)
[2021-08-01 09:04] VITALS: BP 123/77
[2021-08-01] MEDS: LURASIDONE HCL 60 MG TABLET PO SCH (16:37)
[2021-08-01 16:54] VITALS: BP 127/68
[2021-08-02 08:03] VITALS: BP 122/68
[2021-08-02] MEDS: APIXABAN 5 MG TABLET PO SCH ×2 (08:29→16:32)
[2021-08-02] MEDS: METOPROLOL SUCCINATE 25 MG ER TABLET PO SCH (08:29)
[2021-08-02] MEDS: MULTIVITAMINS WITH MINERALS, THERAPEUTIC TABLET PO SCH (08:29)
[2021-08-02] MEDS: LURASIDONE HCL 60 MG TABLET PO SCH (16:32)
[2021-08-02 16:54] VITALS: BP 143/81
[2021-08-03] MEDS: METOPROLOL SUCCINATE 25 MG ER TABLET PO SCH (09:16)
[2021-08-03] MEDS: APIXABAN 5 MG TABLET PO SCH ×2 (09:16→16:00)
[2021-08-03] MEDS: MULTIVITAMINS WITH MINERALS, THERAPEUTIC TABLET PO SCH (09:16)
[2021-08-03 10:04] VITALS: BP 115/69
[2021-08-03 11:50] LABS: COVID AG,FIA SOURCE NASOPHARYNGEAL
[2021-08-03 16:14] VITALS: BP 127/79
[2021-08-03] MEDS ORDERED: LURA60TA PO (16:50)
[2021-08-03] MEDS: LURASIDONE HCL 60 MG TABLET PO SCH (18:38)
[2021-08-04 00:30] VITALS: BP 145/80
[2021-08-04] MEDS: MULTIVITAMINS WITH MINERALS, THERAPEUTIC TABLET PO SCH (08:51)
[2021-08-04] MEDS: APIXABAN 5 MG TABLET PO SCH (08:51)
[2021-08-04] MEDS: METOPROLOL SUCCINATE 25 MG ER TABLET PO SCH (08:52)
[2021-08-04] MEDS ORDERED: MULT-1239 PO ×2 (09:08→09:10)
[2021-08-04 09:16] VITALS: BP 128/67
[2021-08-05] MEDS ORDERED: METO25 PO (11:09)
[2021-08-05] MEDS ORDERED: APIX5TAB4 PO (11:09)
== END 2021-08-04 10:05 | DRG 885 ==
LOC: EMS 21:40 → 3EX 08-11 00:44 → 3EI 11-10 16:00 → 3EX 11-11 14:15 → 3EI 04-19 11:22 → 3EX 04-24 20:30 → 3EI 05-08 12:37 → 3EX 05-08 22:01
PROVIDERS: ADMIT Psychiatry & Neurology Psychiatry; ATTEND Psychiatry & Neurology Psychiatry
PROC: XW023U6 Introduction of COVID-19 Vaccine into Muscle, Percutaneous Approach, New Technology Group 6 (ICD-10-PCS; 2020-10-30)
PROC: 3E0234Z Introduction of Serum, Toxoid and Vaccine into Muscle, Percutaneous Approach (ICD-10-PCS; principal; 2020-11-04)
DX: F25.0 Schizoaffective disorder, bipolar type (principal); F01.51 Vascular dementia, unspecified severity, with behavioral disturbance; N18.9 Chronic kidney disease, unspecified; E46 Unspecified protein-calorie malnutrition; D68.69 Other thrombophilia; N39.0 Urinary tract infection, site not specified; G93.40 Encephalopathy, unspecified; E83.51 Hypocalcemia; E11.22 Type 2 diabetes mellitus with diabetic chronic kidney disease; F41.9 Anxiety disorder, unspecified; I12.9 Hypertensive chronic kidney disease with stage 1 through stage 4 chronic kidney disease, or unspecified chronic kidney disease; I48.91 Unspecified atrial fibrillation; E78.5 Hyperlipidemia, unspecified; E88.09 Other disorders of plasma-protein metabolism, not elsewhere classified; E88.81 Metabolic syndrome and other insulin resistance; F60.0 Paranoid personality disorder; M16.10 Unilateral primary osteoarthritis, unspecified hip; Z20.822 Contact with and (suspected) exposure to COVID-19; K59.00 Constipation, unspecified; Z79.01 Long term (current) use of anticoagulants; Z86.16 Personal history of COVID-19; Z86.73 Personal history of transient ischemic attack (TIA), and cerebral infarction without residual deficits; Z23 Encounter for immunization; Z55.9 Problems related to education and literacy, unspecified; Z59.9 Problem related to housing and economic circumstances, unspecified; Z63.9 Problem related to primary support group, unspecified; Z65.3 Problems related to other legal circumstances; Z91.14 Patient's other noncompliance with medication regimen; Z91.19 Patient's noncompliance with other medical treatment and regimen; Z99.3 Dependence on wheelchair; Z91.012 Allergy to eggs; Z91.018 Allergy to other foods; Z68.34 Body mass index [BMI] 34.0-34.9, adult; K29.70 Gastritis, unspecified, without bleeding; W18.39XA Other fall on same level, initial encounter; Y93.89 Activity, other specified; Y92.89 Other specified places as the place of occurrence of the external cause; Y99.8 Other external cause status; S80.00XA Contusion of unspecified knee, initial encounter
CPT/HCPCS: 0031A; 70450; 71045; 73502; 80053; 80061; 81001; 82550; 83036; 83735; 84439; 84443; 85025; 86592; 87081; 90732; 91303; 93005; 97530; 99285; G0378; G0480; J1630; Q9967; 36415-L1; 36415-TC